=== PATIENT | female | born 1975 | race Caucasian/White ===

== ENCOUNTER 2020-11-16 15:15 | Emergency (ER) | payer OTHER, SELFPAY ==
--- NOTE | ~2020-11-16 | XR_ITS ---
EXAMINATION: XR CHEST CLINICAL INFORMATION: Chest symptoms. Assess for pneumonia. COMPARISON: None TECHNIQUE: Portable upright AP view of the chest was obtained. FINDINGS: The lungs are clear. There is no airspace consolidation or definite groundglass opacity. The heart is normal in size. The hilar and mediastinal contours are normal. Vascularity is normal. No visible effusion. No pneumothorax or pleural reaction. Bony structures are unremarkable. XR/XR chest 1V IMPRESSION: Unremarkable examination.
--- NOTE | 2020-11-16 15:19 | ED_ITS ---
HPI - General Adult General Chief complaint: Upper Respiratory Symptoms Stated complaint: COUGH,CONGESTION X'S 1 DAY Time Seen by Provider: 11/16/20 16:37 Source: patient Mode of arrival: ambulatory Limitations: no limitations History of Present Illness HPI narrative: Patient presents to ED for coughing, sore throat, body aches. Patient states having symptoms since yesterday. Patient states granddaughter having similar symptoms. Patient states no chest pain or shortness of breath. Related Data Previous Rx's Medication Instructions Recorded albuterol sulfate 90 mcg/actuation 2 puff INHALATION Q4-6H PRN #8.5 g 11/16/20 aerosol inhaler prednisone 20 mg tablet 40 mg PO DAILY 5 Days #10 tab 11/16/20 Allergies Allergy/AdvReac Type Severity Reaction Status Date / Time No Known Allergies Allergy Verified 11/16/20 15:33 Review of Systems Review of Systems: Yes all other systems are reviewed and are negative Constitutional: Constitutional: Reports as per HPI and Reports no additional constitutional complaints Eyes: Eyes: Reports as per HPI and Reports no additional eye complaints ENT: Reports system reviewed and no additional complaints, except as documented, Reports as per HPI and Reports sore throat Cardiovascular: Cardiovascular: Reports as per HPI and Reports no additional cardiovascular complaints Respiratory: Respiratory: Reports as per HPI, Reports no additional res piratory complaints and Reports cough Gastrointestinal: Gastrointestinal: Reports as per HPI and Reports no additional gastrointestinal complaints Musculoskeletal: Musculoskeletal: Reports no additional musculoskeletal complaints and Reports as per HPI Neurologic: Reports system reviewed and no additional complaints, except as documented and Reports as per HPI Psychiatric: Psychiatric: Reports no additional psychiatric complaints and Reports as per HPI [facility] Past Medical History Medical History (Updated 11/16/20 @ 17:57 by JAIME Lujan) Asthma Pre-diabetes Social History Social History Alcohol intake: never Patient Tobacco Use Status: Never used Tobacco Use of substances other than those prescribed or required for medical reasons: No Advance Directives: No Advance Directives Information Provided: Yes Patient : No Physical Exam Vital Signs: Vital Signs: Last Vital Signs Temp 97.7 F 11/16/20 16:00 Pulse 103 H 11/16/20 16:00 Resp 18 11/16/20 16:00 BP 143/69 H 11/16/20 16:00 Pulse Ox 98 11/16/20 16:00 Body Mass Index 26.3 Const: General: cooperative, healthy appearing, comfortable, no acute distress, well developed, alert, awake and Physically active Orientation/consciousness: patient oriented x3 HENMT: Head: Yes normal to inspection, Yes No palpable skull fracture present, Yes normocephalic and Yes atraumatic Eyes: General: appearance normal, both eyes and all related structures Neck: Neck: Yes normal visual inspection, Yes full ROM, Yes no lymphadenopathy, Yes no meningeal signs, Yes trachea midline, Yes supple and No tender Chest: Chest palpation & inspection: normal inspection of the chest and normal palpation of entire chest wall Resp: Effort & Inspection: normal respiratory effort and able to speak in complete sentences Auscultation: wheezes (Mild) expiratory wheezes Cardio: Jugular venous distension: no JVD Heart sounds: S1 normal heart sound present and S2 normal heart sound present GI: Inspection: Yes normal to inspection and No abdominal wall ecchymosis Palpation (GI): Soft to palpation, not firm, nontender, no guarding and not rigid : General: No CVA tenderness and Yes no CVA tenderness Back/Spine/Pelvis: Back: no CVA tenderness, No CVA tenderness and No back tenderness Skin: General skin exam: no rashes or lesions noted and elasticity normal Neuro: General: patient oriented x3, gait normal, no meningeal signs and CN's II-XI intact bilaterally Cranial nerves: Yes CN's II-XII intact bilaterally Extrem: General: Yes normal to inspection and Yes full ROM Psych: Appearance: grossly normal, well kempt and not disheveled Course Course Course Narrative: Patient will have chest x-ray and COVID swab per patient given albuterol pump and steroids. Reevaluation(s) Reevaluation #1: Patient COVID swab negative. RSV negative. Chest x-ray negative for pneumonia. Patient is safe for discharge Time: 17:51 Medical Decision Making [facility] Narrative Medical decision making narrative: Viral asthma exacerbation Lab Data Labs: Lab Results 11/16/20 11/16/20 Range/Units 15:43 15:43 Coronavirus (PCR) NEGATIVE (Negative) Influenza Type A (PCR) NEGATIVE (Negative) Influenza Type B (PCR) NEGATIVE (Negative) RSV RNA Qual (PCR) NEGATIVE (Negative) S. pyogenes GrpA KHALIF Negative (Negative) Discharge Plan Discharge Clinical Impression: Asthma Patient Disposition: Home, Self-Care Instructions: Asthma (ED), Upper Respiratory Infection (ED) Additional Instructions: Aguirre hisopo COVID, VSR y el hisopo de influenza dieron negativo. Radiograf?a de t?rax negativa para neumon?a. Se le anthony? de miley con esteroides y bomba de albuterol para la axacerbaci?n de ashtma. Regrese al servicio de urgencias si tiene dolor en el pecho, dificultad para respirar, hinchaz?n de las extremidades inferiores, dolor en la pantorrilla, tos con joy, debilidad, mareos, fiebre o cualquier otro s?ntoma que le preocupe. Jason un seguimiento con aguirre PCP. Prescriptions: New albuterol sulfate 90 mcg/actuation HFA aerosol inhaler 2 puff inhalation Q4-6H PRN (Reason: shortness of breath or wheezing) Qty: 8.5 RF: 0 prednisone 20 mg tablet 40 mg PO DAILY 5 Days Qty: 10 RF: 0 Stand Alone Forms: Work/School Release Print Language: Citizen Of [place]
[2020-11-16 15:25] VITALS: BP 139/62; BP 141/63; PULSE 101; PULSE 104; RESP 18; TEMP 36.6; O2SAT 97; BMI 26.3
[2020-11-16 15:29] VITALS: O2SAT 97
[2020-11-16] MEDS: predniSONE 20 MG TABLET 60 MG PO (15:41)
--- NOTE | 2020-11-16 15:42 | PC.NURSE ---
pt medicated per order
[2020-11-16 15:56] VITALS: BP 140/69; PULSE 100; RESP 16; TEMP 37.9; O2SAT 95
[2020-11-16 15:59] LABS: Strep A Nucleic Acid Negative (Negative)
[2020-11-16 16:00] VITALS: BP 143/69; PULSE 103; RESP 18; TEMP 36.5; O2SAT 98
[2020-11-16] MEDS: Albuterol Sulfate 90 MCG 8 GM INHALER 4 PUFF INHALE (16:04)
[2020-11-16 16:31] LABS: Influenza A PCR NEGATIVE (Negative); Influenza B PCR NEGATIVE (Negative); Resp Syncy Virus RNA Qual PCR NEGATIVE (Negative); SARS COV2 PCR INHOUSE NEGATIVE (Negative)
--- NOTE | 2020-11-16 16:38 | PC.NURSE ---
patient a&ox3, no c/o pain or discomfort, vss, pt awaiting testing results, will continue to monitor.
[2020-11-16 16:43] LABS: Adenovirus PCR Not Detected (Not Detect.); Bordetella parapertussis PCR Not Detected (Not Detect.); Bordetella pertussis PCR Not Detected (Not Detect.); Chlamydia pneumoniae PCR Not Detected (Not Detect.); Coronavirus 229E PCR Not Detected (Not Detect.); Coronavirus HKU1 PCR Not Detected (Not Detect.); Coronavirus NL63 PCR Not Detected (Not Detect.); Coronavirus OC43 PCR Not Detected (Not Detect.); Human metapneumovirus PCR Not Detected (Not Detect.); Influenza A PCR Not Detected (Not Detect.); Influenza B PCR Not Detected (Not Detect.); Mycoplasma pneumoniae PCR Not Detected (Not Detect.); Parainfluenza 1 PCR Not Detected (Not Detect.); Parainfluenza 2 PCR Not Detected (Not Detect.); Parainfluenza 3 PCR Not Detected (Not Detect.); Parainfluenza 4 PCR Not Detected (Not Detect.); RSV PCR Not Detected (Not Detect.); SARS-CoV-2 PCR Not Detected (Not Detect.)
[2020-11-16] MEDS: Acetaminophen 325 MG TABLET 650 MG PO (17:12)
[2020-11-16 18:54] VITALS: BP 133/66; PULSE 99; RESP 18; TEMP 36.4; O2SAT 97
[2020-11-17 09:24] LABS: Rhino/Enterovirus PCR Detected (Not Detect.)
== END 2020-11-16 18:56 | disposition home or self-care (01) ==
PROVIDERS: Physician Assistant; Emergency Provider Emergency Medicine
DX: J45.909 Unspecified asthma, uncomplicated (principal); R05 Cough; M79.10 Myalgia, unspecified site; Z20.822 Contact with and (suspected) exposure to COVID-19; Z79.899 Other long term (current) drug therapy
CPT/HCPCS: 0241U; 36415; 71045; 87633; 87651; 94640; 99284

== ENCOUNTER 2022-02-03 11:44 | Emergency (ER) | payer MEDICAID, SELFPAY ==
[2022-02-03 12:12] VITALS: BP 146/82; PULSE 86; RESP 18; TEMP 37.1; O2SAT 99; BMI 27.1
--- NOTE | 2022-02-03 12:14 | ED_ITS ---
HPI - Back Pain/Injury General Chief Complaint: Back Pain/Injury Stated Complaint: Lower back pain Time Seen by Provider: 02/03/22 12:17 Source: patient and translator/interpreter Mode of arrival: ambulatory Limitations: language barrier History of Present Illness HPI Narrative: This is a 47-year-old female with a history of asthma who presents with intermittent low back pain for the last few months. Patient reports she was seen by her primary care and diagnosed with musculoskeletal pain. Prescribed Flexeril and ibuprofen but taking with continued symptoms. Pain radiates from the low back into the right leg. Patient denies any numbness or tingling of the leg. No bowel or bladder incontinence. No fevers or chills. Pain is worsened with walking. No history of IV drug abuse, immunocompromised state Related Data Previous Rx's Medication Instructions Recorded albuterol sulfate 90 mcg/actuation 2 puff inhalation Q4-6H PRN 11/16/20 aerosol inhaler shortness of breath or wheezing #8.5 grams prednisone 20 mg tablet 40 mg PO DAILY 5 days #10 tabs 11/16/20 methocarbamol 750 mg tablet 750 mg PO Q6H PRN muscle pain #10 02/03/22 tabs naproxen 500 mg tablet 500 mg PO BID PRN pain #30 tabs 02/03/22 prednisone 20 mg tablet 40 mg PO DAILY #10 tabs 02/03/22 Allergies Allergy/AdvReac Type Severity Reaction Status Date / Time No Known Allergies Allergy Verified 11/16/20 15:33 Review of Systems Review of Systems: Yes all other systems are reviewed and are negative Constitutional: Constitutional: Reports no additional constitutional complaints, Denies body ache(s), Denies chills, Denies fever(s), Denies headache(s) and Denies weakness Eyes: Eyes: Reports no additional eye complaints and Denies change in vision ENT: Reports system reviewed and no additional complaints, except as documented, Denies dizziness, Denies headache(s), Denies nasal congestion, Denies nasal discharge and Denies neck pain Cardiovascular: Cardiovascular: Reports no additional cardiovascular complaints, Denies chest pain, Denies leg edema and Denies dyspnea Respiratory: Respiratory: Reports no additional respiratory complaints, Denies cough and Denies dyspnea Gastrointestinal: Gastrointestinal: Reports no additional gastrointestinal complaints, Denies abdominal pain, Denies diarrhea, Denies nausea and Denies vomiting Genitourinary: Genitourinary: Reports no additional female genitourinary complaints and Denies urinary incontinence Musculoskeletal: Musculoskeletal: Reports no additional musculoskeletal complaints, Reports back pain, Denies arthralgias, Denies joint swelling, Denies neck pain, Denies numbness and Denies tingling Integumentary/Breasts: Skin/Breast: Reports system reviewed and no additional complaints, except as docu and Denies rash Neurologic: Reports system reviewed and no additional complaints, except as documented, Denies Abnormal speech present, Denies dizziness, Denies headache(s), Denies numbness, Denies tingling and Denies weakness [facility] Past Medical History Attestation statement: The following information was validated with the patient. Source: old records reviewed and nursing notes reviewed Medical History Asthma Pre-diabetes Social History Social History Alcohol intake: never Patient Tobacco Use Status: Never used Tobacco Advance Directives: No Advance Directives Information Provided: No Physical Exam Vital Signs: Vital Signs: Last Vital Signs Temp 98.7 F 02/03/22 12:12 Pulse 86 02/03/22 12:12 Resp 18 02/03/22 12:12 BP 146/82 H 02/03/22 12:12 Pulse Ox 99 02/03/22 12:12 O2 Del Method 02/03/22 12:12 BMI result Body Mass Index 27.1 Const: General: cooperative, healthy appearing, comfortable and no acute distress Orientation/consciousness: patient oriented x3 Limitations: no limitations HEENT: Head: Yes normal to inspection Ears: hearing grossly normal bilatera lly General nose exam: Normal external nose present Face and sinus: Yes normal facial exam Mouth: Normal oral and palatal mucosa present Throat: Yes posterior oropharynx normal Eyes: General: appearance normal, both eyes and all related structures Pupils: Equal, round and reactive pupils present Neck: Neck: Yes normal visual inspection Chest: Chest palpation & inspection: normal inspection of the chest Resp: Effort & Inspection: normal respiratory effort Auscultation: clear to auscultation bilaterally Cardio: Rate: regular rate Rhythm: regular rhythm Peripheral pulses: Peripheral pulses 2+ throughout GI: Inspection: Yes normal to inspection Palpation (GI): Soft to palpation and nontender Auscultation: normal bowel sounds : General: Yes no CVA tenderness Back/Spine/Pelvis: Other: There is tenderness the lumbar soft tissue area over the right side with no midline tenderness, step-offs deformities. Pain is worsened with flexion and extension of the lumbar spine. Back: no CVA tenderness Thoracic/Lumbar Spine: thoracic and lumbar spine normal to inspection Skin: General skin exam: no rashes or lesions noted Neuro: General: patient oriented x3, no focal motor deficits and normal sensation to monofilament Cranial nerves: Yes Equal, round and reactive pupils present Cognition (Neuro): normal cognition Speech: No Abnormal speech present Gait exam (Neuro): Normal gait present Motor exam (neuro): 5/5 motor strength present throughout Sensory Exam: Normal double simultaneous stimulation for sensation Deep tendon reflexes (DTR's): Right patellar reflex intensity grade: 2+ and Left patellar reflex intensity grade: 2+ Extrem: General: Yes normal to inspection Course Course Course Narrative: This is a rapid medical exam. Deferred additional HPI, ROS, PE to primary provider. 47 yo female with here low back pain for months with no injury or trauma, VSS MDM - Back Pain/Injury MDM Narrative Medical decision making narrative: This is a 47-year-old female here with atraumatic lower back pain intermittently over the last few months unrelieved with ibuprofen, Flexeril at home. No injury or trauma No history of immunocompromise state, IV drug abuse or neurological deficits to suggest epidural abscess or cord compression or cauda equina. Likely musculoskeletal versus sciatic Patient will be discharged home with NSAID, muscle relaxant, prednisone course. Reviewed worrisome signs and symptoms of when to return to the emergency room. Comfortable plan for discharge home. Medical Records Attestation: I reviewed the patient's medical records. Lab Data Attestation: I reviewed the patient's lab results. Discharge Plan Discharge Clinical Impression: Sciatica Patient Disposition: Home, Self-Care Instructions: Sciatica (ED) Additional Instructions: Heat or ice to the area Gentle stretching No heavy lifting or bending Follow-up with primary care doctor comer o hielo en el ?reese Estiramiento suave Sin levantar objetos pesados ??ni agacharse Seguimiento con el m?dico de atenci?n primaria Prescriptions: New naproxen 500 mg tablet 500 mg PO BID PRN (Reason: pain) Qty: 30 0RF methocarbamol 750 mg tablet 750 mg PO Q6H PRN (Reason: muscle pain) Qty: 10 0RF prednisone 20 mg tablet 40 mg PO DAILY Qty: 10 0RF No Action albuterol sulfate 90 mcg/actuation HFA aerosol inhaler 2 puff inhalation Q4-6H PRN (Reason: shortness of breath or wheezing) Qty: 8.5 0RF prednisone 20 mg tablet 40 mg PO DAILY 5 Days Qty: 10 0RF Referrals: Julee Cloud MD [Primary Care Provider] - 1 week Print Language: [place]i
== END 2022-02-03 12:43 | disposition home or self-care (01) ==
LOC: HO.ED 12:32
PROVIDERS: Emergency Provider Emergency Medicine; PCP Internal Medicine
DX: M54.42 Lumbago with sciatica, left side (principal); M54.41 Lumbago with sciatica, right side; Z79.899 Other long term (current) drug therapy
CPT/HCPCS: 99282

== ENCOUNTER 2022-02-12 11:57 | Outpatient (REF) | payer MEDICAID, SELFPAY ==
[2022-02-13 09:24] LABS: CT PCR NOT DETECTED (Not Detect.); NG PCR NOT DETECTED (Not Detect.)
[2022-02-15 05:18] LABS: HPV mRNA E6/E7 rflx Not Detected (Not Detected)
== END 2022-02-12 11:58 | disposition home or self-care (01) ==
LOC: HO.LNP 11:57
PROVIDERS: PCP Internal Medicine; Visit Provider Obstetrics & Gynecology
DX: Z01.419 Encounter for gynecological examination (general) (routine) without abnormal findings (principal); Z11.51 Encounter for screening for human papillomavirus (HPV); N93.9 Abnormal uterine and vaginal bleeding, unspecified
CPT/HCPCS: 87491; 87591; 87624; 88142; 99202

== ENCOUNTER 2022-02-13 10:56 | Outpatient (REF) | payer MEDICAID, SELFPAY ==
--- NOTE | ~2022-02-13 | MM_ITS ---
EXAMINATION: MM SCREENING DIGITAL BREAST TOMOSYNTHESIS, BILATERAL CLINICAL INFORMATION: Screening. Asymptomatic. The lifetime risk of breast cancer based on the Tyrer-Cuzick Model is 6%. COMPARISON: Mammography: 12/08/2014 (baseline) TECHNIQUE: Digital breast tomosynthesis is performed in both the craniocaudal and mediolateral oblique views along with computer-aided detection (CAD). Synthesized 2D images are generated from the tomosynthesis. FINDINGS: The breasts are heterogeneously dense, which may obscure small masses (ACR BI-RADS breast composition Category c). Breast tissue composition borders on average fibroglandular. There are no significant masses, abnormal calcifications, or other abnormalities. The axilla and skin contours are unremarkable. No significant changes. MM/MM tomosynthesis screening BI IMPRESSION: No mammographic evidence of malignancy. ASSESSMENT: BI-RADS 1: Negative RECOMMENDATION: Routine annual mammography screening. This patient's information was entered into a reminder system with a target due date for their next mammogram.
== END 2022-02-13 10:57 | disposition home or self-care (01) ==
LOC: HO.MAMMO 10:56
PROVIDERS: PCP Internal Medicine; Visit Provider Obstetrics & Gynecology
DX: Z12.31 Encounter for screening mammogram for malignant neoplasm of breast (principal)
CPT/HCPCS: 77063; 77067

== ENCOUNTER 2022-04-03 13:17 | Outpatient (REF) | payer MEDICAID, SELFPAY | END 2022-04-03 13:18 | disposition home or self-care (01) | LOC: HO.LNP 13:17 | PROVIDERS: PCP Internal Medicine; Visit Provider Obstetrics & Gynecology | DX: N93.9 Abnormal uterine and vaginal bleeding, unspecified (principal) | CPT/HCPCS: 58100; 88305 ==

== ENCOUNTER 2022-04-11 09:45 | Outpatient (REF) | payer MEDICAID, SELFPAY ==
[2022-04-11 12:24] LABS: Hematocrit 37.5 % (37.0-47.0); Mean Corpuscular Hemoglobin 27.6 pg (27.0-33.0); Mean Corpuscular Volume 86.2 fL (80.0-98.0); Mean Platelet Volume 11.8 fL (9.4-12.3); Platelet Count 199 X10*3/uL (160-400); Red Blood Count 4.35 X10*6/uL (4.20-5.50); Red Cell Distribution Width 14.4 % (11.0-16.0); White Blood Count 4.8 X10*3/uL (4.8-10.8)
[2022-04-11 13:36] LABS: HCG Quantitative < 2 mIU/mL; TSH reflex Free T4 1.52 uIU/mL (0.32-4.0)
[2022-04-13 01:38] LABS: Follicle Stimulating Hormone 16.8 mIU/mL; Lutenizing Hormone 11.5 mIU/mL
== END 2022-04-11 09:46 | disposition home or self-care (01) ==
LOC: HO.LAB 09:45
PROVIDERS: PCP Internal Medicine; Visit Provider Obstetrics & Gynecology
DX: N93.9 Abnormal uterine and vaginal bleeding, unspecified (principal)
CPT/HCPCS: 36415; 83001; 83002; 84443; 84702; 85027; 99212

== ENCOUNTER 2022-05-13 10:53 | Outpatient (REF) | payer MEDICAID, SELFPAY ==
--- NOTE | ~2022-05-13 | US_ITS ---
EXAMINATION: US PELVIS CLINICAL INFORMATION: Abnormal vaginal bleeding. LMP 05/10/2022. COMPARISON: Pelvic ultrasound 04/18/2011. TECHNIQUE: Ultrasound of the pelvis is performed using both transabdominal and transvaginal transducers along with Doppler. Transvaginal imaging is performed due to inadequate visualization transabdominally. FINDINGS: The uterus is anteverted and enlarged measuring 11.9 x 4.3 x 7.5 cm. The myometrium/junctional zone is prominent and somewhat heterogeneous. No discrete focal liver lesion. The endometrium measures 0.6 cm in thickness. Nabothian cysts are noted in the cervix. The right ovary is slightly larger than the left ovary with some degree of nonspecific heterogeneity/bulkiness of the parenchyma. The right ovary measures 3.1 x 2.7 x 1.7 cm (7.5 mL) and the left ovary measures 2.4 x 2.6 x 1.5 cm (4.9 mL). No free fluid. US/US pelvic and transvaginal IMPRESSION: 1. The uterus is enlarged and heterogeneous in echotexture with prominence of the myometrium/junctional zone. These findings could be seen in the setting of adenomyosis in the appropriate clinical context. Recommend correlation with an MR of the pelvis with and without intravenous contrast for further evaluation. 2. Nonspecific mild asymmetric enlargement of the right ovary. Recommend clinical correlation for on and off torsion, however definite characterization with above recommended MRI pelvis is advised. 3. No free fluid.
== END 2022-05-13 10:54 | disposition home or self-care (01) ==
LOC: HO.US 10:53
PROVIDERS: PCP Internal Medicine; Visit Provider Obstetrics & Gynecology
DX: N93.9 Abnormal uterine and vaginal bleeding, unspecified (principal)
CPT/HCPCS: 76830; 76856

== ENCOUNTER → 2022-05-27 12:44 | Outpatient (BNVA) | payer MEDICAID, SELFPAY | PROVIDERS: PCP Internal Medicine; Visit Provider Obstetrics & Gynecology | DX: N93.9 Abnormal uterine and vaginal bleeding, unspecified (principal) | CPT/HCPCS: 99212 ==

== ENCOUNTER 2022-07-06 00:18 | Emergency (ER) | payer MEDICAID, SELFPAY ==
--- NOTE | ~2022-07-06 | CT_ITS ---
EXAMINATION: CT HEAD WITHOUT CONTRAST CLINICAL INFORMATION: Headache for 2 months, rule out mass effect, stroke COMPARISON: None TECHNIQUE: Contiguous axial imaging was performed from the skull base to vertex without intravenous administration of contrast. This CT examination was performed using dose optimization techniques as appropriate, variously including the following: *Automated exposure control *Adjustment of mA and/or kV according to patient size (this includes techniques or standardized protocols for targeted exams where dose is matched to indication/reason for exam; i.e. extremities or head) *Use of iterative reconstruction technique DLP: 615 mGy-cm FINDINGS: There is no evidence of acute intracranial hemorrhage or territorial infarction. No abnormal mass-effect or midline shift is seen. Hickman to white matter differentiation is well preserved. No extra-axial fluid collections are identified. The ventricles are normal in size. There is no abnormal attenuation within the brain parenchyma. The osseous structures and soft tissues are normal. The mastoid air cells and visualized portions of the paranasal sinuses are well-aerated. CT/CT head/brain wo IV con IMPRESSION: No acute intracranial pathology.
[2022-07-06 00:22] VITALS: BP 174/92; PULSE 80; RESP 18; TEMP 36.4; O2SAT 97; BMI 27.2
--- NOTE | 2022-07-06 02:55 | PC.NURSE ---
pt c/o of madrigal that began months ago but has been at its worst today, admits to occasional dizziness, denies n/v denies any injury, trauma, falls
[2022-07-06 03:01] VITALS: BP 159/90
--- NOTE | 2022-07-06 03:02 | PC.NURSE ---
pt denies hx of htn and admits to dx of pre-diabetes
--- NOTE | 2022-07-06 03:46 | ED.HA ---
HPI - Headache General Chief Complaint: Headache Stated Complaint: Months with headaches Time Seen by Provider: 07/06/22 01:31 Source: patient Mode of arrival: ambulatory Limitations: language barrier (Patient's 1st language is Swedish, speaks some Thai, iPad business intelligence developer used) History of Present Illness HPI Narrative: 47-year-old female who presents emergency department for evaluation of headaches x2 months. She states she gets the headaches daily and multiple times throughout the day. She points to her forehead, sides for head and back of her head when asked to localize the pain. She states that the pain is a pressure-like pain. At the time of my evaluation she states the headache resolved. She states that yesterday at around 14:00 hours for headache came on gradually and was persistent until it resolved in the emergency department she denies associated nausea, vomiting, vision change, flashing lights, photophobia, phonophobia, numbness or weakness. She does not think that the headache does not have a pattern such is worse in the morning, day or evening. Related Data Previous Rx's Medication Instructions Recorded albuterol sulfate 90 mcg/actuation 2 puff inhalation Q4-6H PRN 11/16/20 aerosol inhaler shortness of breath or wheezing #8.5 grams prednisone 20 mg tablet 40 mg PO DAILY 5 days #10 tabs 11/16/20 methocarbamol 750 mg tablet 750 mg PO Q6H PRN muscle pain #10 02/03/22 tabs naproxen 500 mg tablet 500 mg PO BID PRN pain #30 tabs 02/03/22 prednisone 20 mg tablet 40 mg PO DAILY #10 tabs 02/03/22 diphenhydramine HCl 25 mg capsule 50 mg PO Q6H PRN N/V, headache #30 07/06/22 (Benadryl) caps metoclopramide HCl 10 mg tablet 10 mg PO Q6H PRN nausea and 07/06/22 (Reglan) vomiting #14 tabs Allergies Allergy/AdvReac Type Severity Reaction Status Date / Time No Known Allergies Allergy Verified 05/27/22 13:02 Review of Systems Review of Systems: Yes all other systems are reviewed and are negative [facility] Past Medical History [facility] Narrative: Past medical history: Pre diabetes, asthma. Social history: She denies tobacco, alcohol and drug use. Medical History Asthma Pre-diabetes Social History Social History Alcohol intake: never Patient Tobacco Use Status: Never used Tobacco Smoked in Last 30 Days: No Use of substances other than those prescribed or required for medical reasons: No Advance Directives: No Advance Directives Information Provided: Yes Physical Exam Vital Signs: Vital Signs: Last Vital Signs Temp 97.4 F 07/06/22 05:50 Pulse 73 07/06/22 05:50 Resp 18 07/06/22 05:50 BP 138/84 07/06/22 05:50 Pulse Ox 98 07/06/22 05:50 O2 Del Method Room Air 07/06/22 05:50 BMI result Body Mass Index 27.2 Const: General: cooperative and no acute distress Orientation/consciousness: oriented to person and oriented to place Limitations: no limitations HEENT: Head: Yes normal to inspection, Yes normocephalic and Yes atraumatic Ears: external ears normal General nose exam: Normal external nose present Face and sinus: Yes normal facial exam Mouth: Normal oral and palatal mucosa present Throat: Yes posterior oropharynx normal Eyes: General: appearance normal, both eyes and all related structures Pupils: Equal, round and reactive pupils present Neck: Neck: Yes normal visual inspection, Yes no lymphadenopathy, Yes trachea midline and Yes supple Chest: Chest palpation & inspection: normal inspection of the chest and normal palpation of entire chest wall Resp: Effort & Inspection: normal respiratory effort and able to speak in complete sentences Auscultation: clear to auscultation bilaterally Cardio: Rate: regular rate Rhythm: regular rhythm Heart sounds: S1 normal heart sound present, S2 normal heart sound present and no murmurs GI: Inspection: Yes normal to inspection Palpation (GI): Soft to palpation, nontender and no guarding Auscultation: normal bowel sounds : General: Yes no CVA tenderness Back/Spine/Pelvis: Back: no CVA tenderness Skin: General skin exam: no rashes or lesions noted Neuro: General: oriented to person and oriented to place Cranial nerves: Yes CN's II-XII intact bilaterally and Yes Equal, round and reactive pupils present Cognition (Neuro): normal cognition Motor exam (neuro): 5/5 motor strength present throughout Extrem: General: Yes normal to inspection Psych: Appearance: grossly normal Speech and movement: Normal speech and movement present Affect: normal affect Attitude: cooperative Thought process: Normal thought process present Thought content: Normal thought content present Medical Decision Making Medical Decision Making MDM Narrative: 47-year-old female who presents emergency department for evaluation daily headaches times 3 months. Patient had a headache that started yesterday at 14:00 hours but resolved by the time I evaluated her in the emergency department. The headache is a pressure-like sensation in the front sides and back of her head with no significant associated symptoms except for dizziness. Patient's physical examination was unremarkable. I did order a CBC, CMP, ESR, CRP, CT scan of the brain. Patient had no pain at the time of my evaluation and did not require any medications. 0620: My interpretation of patient's workup data is as follows: Mild anemia with an H&H of 11.5 and 36.6. CMP was normal. ESR and CRP were normal. CT scan of the brain did not reveal a cause of the patient's headaches. Patient's headaches are nonspecific but she may benefit from treatment for migraine-like headaches. Patient was prescribed Reglan 10 mg, Benadryl 50 mg and Excedrin migraine 2 pills every 6 hours as needed for headache pain. She was given verbal and printed instructions and discharged home. Lab Data 07/06/22 04:18 07/06/22 04:18 Labs: Lab Results 07/06/22 07/06/22 07/06/22 Range/Units 04:18 04:18 04:18 WBC 7.3 (4.8-10.8) X10*3/uL RBC 4.40 (4.20-5.50) X10*6/uL Hgb 11.5 L (12.0-16.0) g/dl Hct 36.6 L (37.0-47.0) % MCV 83.2 (80.0-98.0) fL MCH 26.1 L (27.0-33.0) pg MCHC 31.4 (31.0-35.0) g/dl RDW 14.3 (11.0-16.0) % Plt Count 237 (160-400) X10*3/uL MPV 11.0 (9.4-12.3) fL Immature Gran % (Auto) 0.1 (0.0-0.4) % Neut % (Auto) 75.0 H (45-73) % Lymph % (Auto) 16.4 L (20-40) % [place] % (Auto) 7.2 (2-11) % Eos % (Auto) 0.7 (0-4) % Baso % (Auto) 0.6 (0-2) % Lymph # (Auto) 1.2 (1.2-4.9) X10*3/uL [place] # (Auto) 0.5 (0.1-1.2) X10*3/uL Eos # (Auto) 0.1 (0.0-0.4) X10*3/uL Baso # (Auto) 0.0 (0.0-0.2) X10*3/uL Abs Immat Gran (auto) 0.01 (0.00-0.03) X10*3/uL Absolute Neuts (auto) 5.5 (2.0-8.3) x10*3/uL Absolute Nucleated RBC 0.000 (0.0-0.012) X10*3/uL Nucleated RBC % (auto) 0.0 (0.0-0.2) /100WBC ESR 12 (0-20) MM/HR Sodium 142 (135-145) mmol/L Potassium 4.2 (3.3-5.1) mmol/L Chloride 108 (96-108) mmol/L Carbon Dioxide 25 (22-29) mmol/L Anion Gap 13 (12-20) BUN 11 (9-16) mg/dL Creatinine 0.69 (0.5-1.4) mg/dL Estim Creat Clear Calc 74.9 Estimated GFR > 60 Random Glucose 111 (60-115) mg/dL Calcium 9.5 (8.4-10.2) mg/dL Total Bilirubin 0.3 (0.0-1.0) mg/dL AST 14 (5-31) U/L ALT 19 (0-31) U/L Alkaline Phosphatase 76 (39-117) U/L C-Reactive Protein 0.33 (< or = 0.50) mg/dL Total Protein 7.3 (6.5-8.0) g/dL Albumin 4.2 (3.5-5.0) g/dL Discharge Plan Discharge Clinical Impression: Headache Qualifiers: Headache chronicity pattern: acute headache Intractability: not intractable Patient Disposition: Home, Self-Care Instructions: Acute Headache (ED) Additional Instructions: Your blood work included a CBC, CMP, ESR and CRP. All of these tests were normal which is reassuring. The CT scan of your head without IV contrast did not reveal any clear cause for your headache. There was no bleeding in the brain, stroke or large brain tumor seen by the radiologist Headaches are sometimes difficult to treat and we do not understand the cause for most headaches. I want you to try the following 3 medications together for your headaches to see if they improve them. I want you to take the following 3 medications together every 6 hours as needed for headache, nausea or vomiting. Reglan (metoclopramide) in 10 mg, 1 pill Benadryl 25 mg, 2 pills Excedrin migraine, 2 pills. After you take these medications, lie down in a dark quiet room and try to fall asleep. These medications will make you sleepy, do not drive or work after taking these medications. Follow-up with your doctor in 2 days. Please return to the emergency department if your symptoms get worse or if you develop any symptoms that are concerning to you. Prescriptions: New metoclopramide HCl [Reglan] 10 mg tablet 10 mg PO Q6H PRN (Reason: nausea and vomiting) Qty: 14 0RF diphenhydramine HCl [Benadryl] 25 mg capsule 50 mg PO Q6H PRN (Reason: N/V, headache) Qty: 30 0RF No Action albuterol sulfate 90 mcg/actuation HFA aerosol inhaler 2 puff inhalation Q4-6H PRN (Reason: shortness of breath or wheezing) Qty: 8.5 0RF prednisone 20 mg tablet 40 mg PO DAILY 5 Days Qty: 10 0RF naproxen 500 mg tablet 500 mg PO BID PRN (Reason: pain) Qty: 30 0RF methocarbamol 750 mg tablet 750 mg PO Q6H PRN (Reason: muscle pain) Qty: 10 0RF prednisone 20 mg tablet 40 mg PO DAILY Qty: 10 0RF
[2022-07-06 04:24] LABS: Basophils Percent Auto 0.6 % (0-2); Eosinophils Absolute Auto 0.1 X10*3/uL (0.0-0.4); Eosinophils Percent Auto 0.7 % (0-4); Hematocrit 36.6 % (37.0-47.0); Hemoglobin 11.5 g/dl (12.0-16.0); Imm Gran Abs Auto 0.01 X10*3/uL (0.00-0.03); Imm Gran Pct Auto 0.1 % (0.0-0.4); Lymphocytes Absolute Auto 1.2 X10*3/uL (1.2-4.9); Lymphocytes Percent Auto 16.4 % (20-40); MANUAL DIFF FLAG NO; Mean Corpuscular HGB Conc 31.4 g/dl (31.0-35.0); Mean Corpuscular Hemoglobin 26.1 pg (27.0-33.0); Mean Corpuscular Volume 83.2 fL (80.0-98.0); Monocytes Absolute Auto 0.5 X10*3/uL (0.1-1.2); Monocytes Percent Auto 7.2 % (2-11); Neutrophils Absolute Auto 5.5 x10*3/uL (2.0-8.3); Platelet Count 237 X10*3/uL (160-400); Red Cell Distribution Width 14.3 % (11.0-16.0); White Blood Count 7.3 X10*3/uL (4.8-10.8)
[2022-07-06 04:43] LABS: Alanine Aminotransferase 19 U/L (0-31); Albumin Level 4.2 g/dL (3.5-5.0); Alkaline Phosphatase 76 U/L (39-117); Anion Gap 13 (12-20); Aspartate Amino Transferase 14 U/L (5-31); Bilirubin Total 0.3 mg/dL (0.0-1.0); Blood Urea Nitrogen 11 mg/dL (9-16); C Reactive Protein 0.33 mg/dL (< or = 0.50); Calcium 9.5 mg/dL (8.4-10.2); Carbon Dioxide 25 mmol/L (22-29); Chloride 108 mmol/L (96-108); Creatinine Clr Calc Pharmacy 74.9; Estimated Glomerular Filt Rate > 60; Glucose Random 111 mg/dL (60-115); Potassium 4.2 mmol/L (3.3-5.1); Sodium 142 mmol/L (135-145); Total Protein 7.3 g/dL (6.5-8.0)
[2022-07-06 04:59] LABS: Erythrocyte Sedimentation Rate 12 MM/HR (0-20)
[2022-07-06 05:50] VITALS: BP 138/84; PULSE 73; RESP 18; TEMP 36.3; O2SAT 98
== END 2022-07-06 07:03 | disposition home or self-care (01) ==
PROVIDERS: Emergency Provider Emergency Medicine Emergency Medical Services; PCP Internal Medicine
DX: R51.9 Headache, unspecified (principal)
CPT/HCPCS: 36415; 70450; 80053; 85025; 85652; 86140; 99284

== ENCOUNTER 2023-03-24 14:15 | Outpatient (REF) | payer MEDICAID, SELFPAY ==
--- NOTE | ~2023-03-24 | MM_ITS ---
EXAMINATION: MM SCREENING DIGITAL BREAST TOMOSYNTHESIS, BILATERAL CLINICAL INFORMATION: Screening. Asymptomatic. COMPARISON: Mammography: This study is compared with prior exams dating back to 2014. There are no examinations between 2014 and 2021. TECHNIQUE: Digital breast tomosynthesis is performed in both the craniocaudal and mediolateral oblique views along with computer-aided detection (CAD). Synthesized 2D images are generated from the tomosynthesis. FINDINGS: The breasts are heterogeneously dense, which may obscure small masses (ACR BI-RADS breast composition Category c). There are no significant masses, abnormal calcifications, or other abnormalities. MM/MM tomosynthesis screening BI IMPRESSION: No mammographic evidence of malignancy. ASSESSMENT: BI-RADS BI-RADS 1 - Negative RECOMMENDATION: Routine annual mammography screening. 1 year F/U This examination should not preclude the clinical evaluation of a suspicious palpable abnormality. This patient's information was entered into a reminder system with a target due date for their next mammogram.
== END 2023-03-24 14:16 | disposition home or self-care (01) ==
LOC: HO.MAMMO 14:15
PROVIDERS: PCP Internal Medicine; Visit Provider Internal Medicine
DX: Z12.31 Encounter for screening mammogram for malignant neoplasm of breast (principal)
CPT/HCPCS: 77063; 77067

== ENCOUNTER → 2023-03-24 14:45 | Outpatient (BNV) | payer MEDICAID, SELFPAY | PROVIDERS: PCP Internal Medicine; Visit Provider Radiology Diagnostic Radiology | DX: Z12.31 Encounter for screening mammogram for malignant neoplasm of breast (principal) | CPT/HCPCS: 77063; 77067 ==

== ENCOUNTER 2024-04-02 14:20 | Outpatient (REF) | payer MEDICAID, SELFPAY ==
--- OUTSIDE RECORDS SUMMARY | 2024-04-02 14:22 | XMS_ITS | Encounter Summary ---
Author Organization [employer] Address [address] [place] [address] Care Team Providers Care Lowerator Operator Name Role Phone Julee Cloud MD Primary Care Provide r Encounter Details Date Type Department Care Team (Late st Contact Info) Description 10/11/2022 Orders Only [facility] MED & PEDS [address] [place] [address] Aislinn Contreras LPN Social History Tobacco Use Types Packs/Day Years Used Date Smoking Tobacco: Never Passive Smoke Exposure: Never Smokeless Tobacco: Never Alcohol Use Standard Drinks/Week Comments Never 0 (1 standard drink = 0.6 oz pur e alcohol) Comments Unknown Sex and Gender Information Value Date Recorded Sex Assigned at Female 12/31/2021 10:14 AM EDT Legal Sex Female 10:14 AM EDT Gender Identity Female 12/31/2021 10:14 AM EDT Sexual Orientation Straight 12/31/2021 10 :14 AM EDT documented as of this encounter Plan of Treatment Not on file documented as of this encounter Visit Diagnoses Not on filedocumented in this encounter Care Teams Lowerator Operator Relationship Specialty Start Date End Date Julee Cloud MD [address] [place] [address] PCP - General Family Medicine 11/12/17 documented as of this encounter
--- OUTSIDE RECORDS SUMMARY | 2024-04-02 14:22 | XMS_ITS | Encounter Summary ---
Author Organization [employer] Address [address] [place] [address] Care Team Providers Care Supervisor Poultry Processing Name Role Phone Julee Cloud MD Primary Care Provide r Encounter Details Date Type Department Care Team (Late st Contact Info) Description 12/11/2022 Orders Only [facility] CHC MED & PEDS [address] [place] [address] Yajaira Saavedra LPN Social History Tobacco Use Types Packs/Day [...] on filedocumented in this encounter Care Teams Supervisor Poultry Processing Relationship Specialty Start Date End Date Julee Cloud MD [address] [place] [address] PCP - General Family Medicine 11/12/17 documented as of this encounter
--- OUTSIDE RECORDS SUMMARY | 2024-04-02 14:22 | XMS_ITS | Encounter Summary ---
Author Organization [employer] Address [address] [facility] [address] [place] [address] Care Team Providers Care President And Cmo Name Role Phone Julee Cloud MD Primary Care Provide r Reason for Visit * Reason Comments Med Refill Encounter Details Date Type Department Care Team ([facility] st Contact Info) Description 04/30/2023 Refill [facility] MEDICINE [address] [place], [place] [phone] Julee Cloud MD [address] [place], [place] [phone] Social History Tobacco Use Types Packs/Day Years [...] on filedocumented in this encounter Care Teams President And Cmo Relationship Specialty Start Date End Date Julee Cloud MD [address] [place] [address] [phone] PCP - General Family Medicine 11/12/17 documented as of this encounter
--- OUTSIDE RECORDS SUMMARY | 2024-04-02 14:22 | XMS_ITS | Encounter Summary ---
Author Organization [employer] Address [address] [facility] [address] [place] [address] Care Team Providers Care Refinish Technician Name Role Phone Julee Cloud MD Primary Care Provide r Reason for Visit * Reason Comments Med Refill Encounter Details Date Type Department Care Team ([facility] st Contact Info) Description 04/07/2023 Refill [facility] MEDICINE [address] [place], [place] [phone] Julee Cloud MD [address] [place] [address] Social History Tobacco Use Types Packs/Day Years [...] on filedocumented in this encounter Care Teams Refinish Technician Relationship Specialty Start Date End Date Julee Cloud MD [address] [place] [address] [phone] PCP - General Family Medicine 11/12/17 documented as of this encounter
--- OUTSIDE RECORDS SUMMARY | 2024-04-02 14:22 | XMS_ITS | Clinical Summary ---
Author Organization [employer] Address [address] [place] [address] Care Team Providers Care [employer] Net Developer Name Role Phone Julee Cloud MD Primary Care Provide r Allergies No known active allergies Medications fluticasone (Flovent HFA) 110 MCG/ACT inhaler inhale 2 puff by inhalation route 2 times every day 36 g 3 Active FeroSul 325 (65 Fe) MG tablet TAKE 1 TABLET BY MOUTH TWICE DAILY 180 tablet 1 3 Active naproxen (Naprosyn) 500 MG tabletIndications: Acute nonintractable headache, unspecified headache type TAKE 1 TABLET BY MOUTH TWICE DAILY NEEDED FOR PAIN (LEVE OR MODERATE) 60 tablet 2 3 Active Mometasone Furoate (Asmanex HFA) 100 MCG/ACT aerosolIndications :Mild persistent asthma, unspecified whether complicated Inhale 2 puffs 2 times daily. 13 g 1 4 Active Ventolin HFA 108 (90 Base) MCG/ACT inhaler INHALE 2 PUFFS EVERY 6 HOURS NEEDED FOR WHEEZING 18 g 11 4 Active Active Problems Problem Noted Date Diagnosed Date Acute low back pain 03/10/2023 03/10/2023 Chronic low back pain 03/10/2023 03/10/2023 Excessive and frequent menstruation 03/14/2017 03/10/2023 Impacted cerumen 03/14/2017 03/10/2023 Mild persistent asthma 03/14/2017 4 Encounters Date Type Department Care Team Description 02/24/2024 Outside Procedure [facility] [address] [place] [address] Evelyn Domingo, OD Presbyopia of both eyes (Primary Dx) 02/20/2024 10:15 AM EST Office Visit [facility] [address] [place] [address] Evelyn Domingo, OD Myopia of both eyes (Primary Dx) 02/20/2024 Travel 01/16/2024 1:00 PM EST Office Visit [facility] [address] [place] [address] Evelyn Domingo, OD White without pressure of peripheral retina of right eye (Primary Dx); Chorioretinal scar, left eye; Presbyopia of both eyes 01/16/2024 Travel from Last 3 Months Social History Tobacco Use Types Packs/Day Years Used Date Smoking Tobacco: Never Passive Smoke Exposure: Never Smokeless Tobacco: Never Tobacco Cessation:Counseling Given: Not Answered Alcohol Use Standard Drinks/Week Comments Never 0 (1 standard drink = 0.6 oz pur e alcohol) Comments Unknown Sex and Gender Information Value Date Recorded Sex Assigned at Female 12/31/2021 10:14 AM EDT Legal Sex Female 10:14 AM EDT Gender Identity Female 12/31/2021 10:14 AM EDT Sexual Orientation Straight 12/31/2021 10 :14 AM EDT Last Filed Vital Signs Vital Sign Reading Time Taken Comments Blood Pressure 149/83 05/17/2022 10:36 AM EDT Pulse 71 05/17/2022 10:36 AM EDT Temperature 36.6 ??C (97.8 ??F) 05/17/2022 10:36 AM E DT Respiratory Rate 14 05/17/2022 10:36 AM EDT Oxygen Saturation 97% 05/17/2022 10:36 AM EDT Inhaled Oxygen Concentration - - Weight 59 kg (130 lb) 05/17/2022 10:36 AM EDT Height 147.3 cm (4' 10 ) 05/17/2022 10:36 AM EDT Body Mass Index 27.17 05/17/2022 10:36 AM EDT Plan of Treatment Health Maintenance Due Date Last Done Comments CT Colonography 1973 Colonoscopy 1973 Colorectal Cancer Screening 1973 Depression Screening 1973 FIT DNA/Cologuard 1973 FIT 1973 FOBT 1975 HIV Screening 1973 SDOH Screening 1973 Sigmoidoscopy 1973 Pneumococcal Vaccine: Pediatrics (0 to 5 Years) and At-Risk Patients (6 to 49) Years) (1 of 2 - PCV) 1979 Alcohol/Substance Use Screening 1985 Family Planning (PISQ) 01/03/1988 Hepatitis C Screening 1991 Hepatitis B Vaccines (1 of 3 - 19+ 3-dose series) 01/03/1992 Pneumococcal Vaccine: 50+ Years (1 of 2 - PCV) 01/03/1992 DTaP/Tdap/Td Vaccines (2 - Td or Tdap) 09/23/2022 09/23/2012, 01/24/2009, 09/28/1997 Zoster Vaccines (1 of 2) 2023 COVID-19 Vaccine ( - season) 2023 Influenza Vaccine (#1) 2023 8, 02/22/2014, 04/14/2012, Additional history exists Mammogram 03/24/2024 03/24/2023 Tobacco Screening 01/18/2025 01/19/2024 Pap Smear 02/12/2025 02/12/2022 Cervical Cancer Screening 02/12/2027 HPV/Cotest 02/12/2027 02/12/2022, 06/03/2017 RSV Patients and Patients Aged 60 years or older (1 - 1-dose 75+ series) 01/03/2048 HIB Vaccines Aged Out No longer eligi ble based on patient's age to complete this topic HPV Vaccines Aged Out No longer eligi ble based on patient's age to complete this topic Hepatitis A Vaccines Aged Out No long er eligible based on patient's age to complete this topic IPV Vaccines Aged Out No longer eligi ble based on patient's age to complete this topic Meningococcal Vaccine Aged Out No ruy buddy eligible based on patient's age to complete this topic RSV under 20 months Aged Out No longe r eligible based on patient's age to complete this topic Rotavirus Vaccines Aged Out No longer eligible based on patient's age to complete this topic Procedures Procedure Name Priority Date/Time Associated Diagnosis Comments BI MAMMOGRAM SCREENING TOMOSYNTHESIS BILATERAL Routine 03/24/2023 2:35 PM EST HPV MRNA E6/E7 REFLEX TO HPV 16, 18/45 Routine 02/12/2022 12:32 PM EST PAP SMEAR Routine 02/12/2022 12:32 PM EST from Last 3 Months or Most Recently Relevant to Health Maintenance Results * BI Mammogram Screening Tomosynthesis Bilateral (03/24/2023 2:35 PM EST) Anatomical Region Laterality Modality Breast Bilateral Mammography 03/24/2023 2:35 PM EST Narrative 04/08/2023 8:10 AM EST ? [facility] ? [address] ?[place] [address] ? Mammography Report ? Signed ? Patient: Ludmila Cooper ?MR#: [id number] ?? 6 ? : 1975 ?Acct:[id number] ? Age/Sex: 48 / F ?ADM Date: 03/24/23 ? Loc: HO.MAMMO ? Attending Dr: Julee Dale MD ? Ordering Physician: Julee Cloud MD ?Results: ?? 1Negative ? Date of Service: 03/24/23 ?Follow Up: 1 Year From Orig ?? inal Mammogram ? Procedure(s): MM tomosynthesis screening BI ?? Accession Number(s): [id number] ? cc: Julee Cloud MD ? EXAMINATION: ?? MM SCREENING DIGITAL BREAST TOMOSYNTHESIS, BILATERAL ? CLINICAL INFORMATION: ? Screening. Asymptomatic. ? COMPARISON: ?? Mammography: This study is compared with prior exams dating back to ?? 2014. There are no examinations between 2014 and 2021. ? TECHNIQUE: ?? Digital breast tomosynthesis is performed in both the craniocaudal and ?? mediolateral oblique views along with computer-aided detection (CAD). ?? Synthesized 2D images are generated from the tomosynthesis. ? FINDINGS: ?? The breasts are heterogeneously dense, which may obscure small masses ?? (ACR BI-RADS breast composition Category c). ? There are no significant masses, abnormal calcifications, or other ?? abnormalities. ? MM/MM tomosynthesis screening BI ?? IMPRESSION: ?? No mammographic evidence of malignancy. ? ASSESSMENT: ? BI-RADS BI-RADS 1 - Negative ? RECOMMENDATION: ?? Routine annual mammography screening. ? 1 year F/U ? This examination should not preclude the clinical evaluation of a ?? suspicious palpable abnormality. ? This patient's information was entered into a reminder system with a ?? target due date for their next mammogram. ? Dictated By: ?Priscilla Lindo MD ? Signed By: ?<Electronically signed by Priscilla Lindo MD in OV> ? 04/08/23 0806 ? DD/ 1435 ? TD/TT: ? Account Developer: ? Procedure Note Dominique, Image - 04/08/2023 [facility] [address] [place] [address] Dr. [place], [place] [address] Mammography Report Signed Patient: Ludmila Cooper R#: [id number] 6 : 1975Acct:[id number] Age/Sex: 48 / FADM Date: 03/24/23 Loc: HO.MAMMO Attending Dr: Julee Dale MD Ordering Physician: Barciona Dale,Julee MDResults: 1Negative Date of Service: 03/24/23Follow Up: 1 Year From Orig ina Mammogram Procedure(s): MM tomosynthesis screening BI Accession Number(s): [id number] cc: Julee Cloud MD EXAMINATION: MM SCREENING DIGITAL BREAST TOMOSYNTHESIS, BILATERAL CLINICAL INFORMATION: Screening. Asymptomatic. COMPARISON: Mammography: This study is compared with prior exams dating back to 2014. There are no examinations between 2014 and 2021. TECHNIQUE: Digital breast tomosynthesis is performed in both the craniocaudal and mediolateral oblique views along with computer-aided detection (CAD). Synthesized 2D images are generated from the tomosynthesis. FINDINGS: The breasts are heterogeneously dense, which may obscure small masses (ACR BI-RADS breast composition Category c). There are no significant masses, abnormal calcifications, or other abnormalities. MM/MM tomosynthesis screening BI IMPRESSION: No mammographic evidence of malignancy. ASSESSMENT: BI-RADS BI-RADS 1 - Negative RECOMMENDATION: Routine annual mammography screening. 1 year F/U This examination should not preclude the clinical evaluation of a suspicious palpable abnormality. This patient's information was entered into a reminder system with a target due date for their next mammogram. Dictated By: Priscilla Lindo MD Signed By: <Electronically signed by Priscilla Lindo MD in OV> 04/08/23 0806 DD/ 1435 TD/TT: Account Developer: Julee Dale MD IMG BI PROCEDURES Ankur kimberly Result - Final * HPV mRNA E6/E7 w/Reflex to HPV Genotypes 16, 18/45 (02/12/2022 12:32 PM EST) HPV nRNA E6/E7 Not Detected Not Detected [facility] Comment:Methodology: Transcr iption-Mediated AmplificationThis assay detects E6/E7 viral messenger RNA (mRNA) from 14high-risk HPV types (16,18,31,33,35,39,45,51,52,56,58,59,66,68).Cervical sources are required for HPV testing.If a vaginal source from a patient who has had atotal hysterectomy with removal of cervix wassubmitted, please contact the testing laboratoryfor alternative testing options.For additional information, please refer [email or web address]/faq/[email or web address](This link if provided for information/educational purposes only.)THIS TEST WAS PERFORMED AT:[facility] [place] [address],[place] [address]ROLLRGOOD BECKFORD MD HPV mRNA E6/E7 TNP [facility] HPV 16 RNA TNP [facility] HPV 18/45 RNA TNP [facility] 02/12/2022 12:3 2 PM EST 02/12/2022 5:30 PM EST [facility] External Provider LAB CYT OLOGY ORDERABLES Final Result Performing Organization Address City/State/[facility] Co de Phone Number [facility] [address] [place] [address] [phone] * Pap Smear (02/12/2022 12:32 PM EST) 02/12/2022 12:3 2 PM EST 02/12/2022 5:30 PM EST Narrative [facility] - 03/05/2022 1:04 PM EST ----- ------- Name: Ludmila Cooper ?Age/Sex: 47/F ? : 1975 Unit#: [id number] ?? Attend Dr: Nathan Aguilera MD ?Re02/12/22 ?Status: DEP REF ? Location: HO.LNP ?Disch: ? ----- ------- SPEC : [id number] ?RECD: 02/12/22 ? STATUS: ??SOUT ? REQ NUM: [id number] ? CHAPIN: 02/12/22-1232 ? SUBM DR: Nathan Aguilera MD ? ENTERED: ??02/12/22 ?SP TYPE: Pap Smr ?OTHR DR: Julee Cloud MD ? ORDERED: ??Pap Smear ? Interpretation ?? General Category: ? Negative for intraepithelial lesion/malignancy. ?? Adequacy: ? Endocervical component present. ?? Interpretation: ? Reactive cellular changes. ?Abundant, partially obscuring blood present. ?Endometrial cells present over age 45. ? HPV mRNA E6/E7: ?NOT DETECTED ? This assay detects E6/E7 viral messenger RNA (mRNA) from 14 high-risk HPV types (16, 18, ?? 31, 33, 35, 39, 45, 51, 52, 56, 58, 59, 66, 68) ? HPV testing performed by [employer], [place], [place]. ??See reference laboratory ?? portion of the EMR for entire report. ?Clinical Information LMP: 02/11/22 Previous PAP test: Unknown, WNL ? Material Received ?? ThinPrep-Cervical Copies To: ?? Julee Cloud MD ?? [address] ?? [place] [address] ?? [phone] ?? Nathan Aguilera MD ?? [address] [place] [facility] [place] ?? [place] [address] ?? [phone] ----- ------- Signed (signature on file) Le [place] 03/05/22 6614 ? ----- ------- ? END OF REPORT ? us [facility] External Provider LAB CYT OLOGY ORDERABLES Final Result [facility] [address] [place], [place] [phone] from Last 3 Months or Most Recently Relevant to Health Maintenance Insurance [employer] PARTIAL Care Teams [employer] Developer Relationship Specialty Start Date End Date Julee Cloud MD [address] [place] [address] PCP - General Family Medicine 11/12/17
== END 2024-04-02 14:21 | disposition home or self-care (01) ==
LOC: HO.MAMMO 14:20
PROVIDERS: PCP Internal Medicine; Visit Provider Internal Medicine
DX: Z12.31 Encounter for screening mammogram for malignant neoplasm of breast (principal)
CPT/HCPCS: 77063; 77067

== ENCOUNTER → 2024-04-02 14:30 | Outpatient (BNV) | payer MEDICAID, SELFPAY | PROVIDERS: PCP Internal Medicine; Visit Provider Internal Medicine | DX: Z12.31 Encounter for screening mammogram for malignant neoplasm of breast (principal) | CPT/HCPCS: 77063; 77067 ==

== ENCOUNTER 2024-07-09 10:59 | Outpatient (REF) | payer MEDICAID, SELFPAY ==
--- OUTSIDE RECORDS SUMMARY | 2024-07-09 11:30 | XMS_ITS | Clinical Summary ---
Author Organization [employer] Address [address] [facility] 7t [place] [address] Care Team Providers Care Pallet Stone Inserter Name Role Phone Julee Cloud MD Primary Care Provide r Allergies No known active allergies Medications FeroSul 325 (65 Fe) MG tablet TAKE 1 TABLET BY MOUTH TWICE DAILY 180 tablet 1 023 Active naproxen (Naprosyn) 500 MG tabletIndications :Acute nonintractable headache, unspecified headache type TAKE 1 TABLET BY MOUTH TWICE DAILY NEEDED FOR PAIN (LEVE OR MODERATE) 60 tablet 2 023 Active albuterol (Ventolin HFA) 108 (90 Base) MCG/ACT inhalerIndication s:Mild persistent asthma, unspecified whether complicated Inhale 2 puffs every 6 (six) hours if needed for wheezing. 18 g 11 025 Active fluticasone furoate (Arnuity Ellipta) 100 MCG/ACT inhalerIndication s:Mild persistent asthma, unspecified whether complicated Inhale 1 puff Once per day. Rinse mouth with water after use to reduce aftertaste and incidence of candidiasis. Do not swallow. 1 each 11 025 2025 Active fluticasone (Flovent HFA) 110 MCG/ACT inhaler inhale 2 puff by inhalation route 2 times every day 36 g 023 2024 Discontinued Mometasone Furoate (Asmanex HFA) 100 MCG/ACT aerosolIndication s:Mild persistent asthma, unspecified whether complicated Inhale 2 puffs 2 times daily. 13 g 1 024 2024 Discontinued Ventolin HFA 108 (90 Base) MCG/ACT inhaler INHALE 2 PUFFS EVERY 6 HOURS NEEDED FOR WHEEZING 18 g 11 024 2024 Discontinued(R eorder (will not trigger notification to Pharmacy)) Active Problems Problem Noted Date Diagnosed Date Iron deficiency anemia 07/08/2024 Assessment & Plan (07/08/2024 11:37 AM EDT): CBC and iron panel will be checked Health care maintenance 07/08/2024 Assessment & Plan (07/08/2024 11:37 AM EDT): I will follow-up with patient in about 2 weeks to review her labs with her Prediabetes 07/08/2024 Assessment & Plan (07/08/2024 11:36 AM EDT): Extensive counseling about healthy diet and exercise done today A1c will be checked with labs Acute low back pain 03/10/2023 03/10/2023 Chronic low back pain 03/10/2023 03/10/2023 Excessive and frequent menstruation 03/14/2017 03/10/2023 Impacted cerumen 03/14/2017 03/10/2023 Mild persistent asthma 03/14/2017 Encounters Date Type Department Care Team Description 07/08/2024 10:45 AM EDT Office Visit [facility] [address] [place] [address] Julee Cloud MD Screening for colon cancer (Primary Dx); Mild persistent asthma, unspecified whether complicated; Iron deficiency anemia, unspecified iron deficiency anemia type; Health care maintenance; Prediabetes 07/08/2024 Travel 07/07/2024 Telephone [facility] [address] [place] [address] Julee Cloud MD Chart Prep 05/14/2024 Population Health Risk Score Community Care [facility] ([facility]) Department [address] [place] [address] [phone] Provider, Population Health Generic from Last 3 Months Social History Tobacco Use Types Packs/Day Years Used Date Smoking Tobacco: Never Passive Smoke Exposure: Never Smokeless Tobacco: Never Tobacco Cessation:Counseling Given: Not Answered Alcohol Use Standard Drinks/Week Comments Never 0 (1 standard drink = 0.6 oz pur e alcohol) Depression Answer Date Recorded Patient Health Questionnaire-9 Score 6 07/08/2024 Patient Health Questionnaire-9 Score 6 07/08/2024 Last PHQ-9: Questionnaire Data Not on file 0 07/08/2024 Housing Stability Answer Date Recorded What is your housing situation today? I have yung lynne 07/08/[address] you li ve. Do you have problems with any of the following? None of the above 07/08/2024 Food Insecurity Answer Date Recorded Within the past 12 months, y ou worried that your food would run out before you got money to buy more: Never True 07/08/2024 Within the past 12 months,th e food you bought just didn't last and you didn't have enough money to get more: Never True 10/2024 Transportation Answer Date Recorded In the past 12 months, has l ack of transportation kept you from medical appts, meetings, work or from getting things needed for daily living? No 07/08/2024 Utilities Answer Date Recorded In the past 12 months, has t he electric, gas, oil or water company threatened to shut off services in your home? No 07/08/2024 Depression Answer Date Recorded Patient Health Questionnaire-2 Score 2 07/08/2024 Internet Access Answer Date Recorded Internet Access Q1 Yes 07/08/2024 Internet Access Q2 Not on file 07/08/2024 Comments No Sex and Gender Information Value Date Recorded Sex Assigned at Female 12/31/2021 10:14 AM EDT Legal Sex Female 10:14 AM EDT Gender Identity Female 12/31/2021 10:14 AM EDT Sexual Orientation Straight 12/31/2021 10 :14 AM EDT Last Filed Vital Signs Vital Sign Reading Time Taken Comments Blood Pressure 130/70 07/08/2024 10:49 AM EDT Pulse 91 07/08/2024 10:49 AM EDT Temperature 36.6 ??C (97.8 ??F) 07/08/2024 10:49 AM E DT Respiratory Rate 21 07/08/2024 10:49 AM EDT Oxygen Saturation 100% 07/08/2024 10:49 AM EDT Inhaled Oxygen Concentration - - Weight 55.3 kg (122 lb) 07/08/2024 10:49 AM EDT Height 147.3 cm (4' 10 ) 07/08/2024 10:49 AM EDT Body Mass Index 25.5 07/08/2024 10:49 AM EDT Plan of Treatment Upcoming Encounters Date Type Department Care Team (Late st Contact Info) Description 08/26/2024 11:30 AM EDT Telemedicine [facility] [address] [place] [address] Julee Cloud MD [address] [place] [address] Health Maintenance Due Date Last Done Comments CT Colonography 1975 Colonoscopy 1975 Colorectal Cancer Screening 1975 FIT DNA/Cologuard 1975 FIT 1975 FOBT 1975 HIV Screening 1975 Sigmoidoscopy 1975 Family Planning (PISQ) 01/03/1988 Hepatitis C Screening 1991 Hepatitis B Vaccines (1 of 3 - 19+ 3-dose series) 01/03/1992 Pneumococcal Vaccine: 50+ Years (1 of 2 - PCV) 01/03/1992 Diabetes: Hemoglobin A1C 05/22/2022 05/22/2021 DTaP/Tdap/Td Vaccines (2 - Td or Tdap) 09/23/2022 09/23/2012, 01/24/2009, 09/28/1997 Zoster Vaccines (1 of 2) 2023 COVID-19 Vaccine (1 - season) 2023 Influenza Vaccine (#1) 2023 8, 02/22/2014, 04/14/2012, Additional history exists Pap Smear 02/12/2025 02/12/2022 Mammogram 04/02/2025 04/02/2024, 03/24/2023 Alcohol/Substance Use Screening 07/08/2025 07/08/2024 Depression Screening 07/08/2025 07/08/2024, 07/09/19 25 SDOH Screening 07/08/2025 07/08/2024 Tobacco Screening 07/08/2025 07/08/2024 Cervical Cancer Screening 02/12/2027 HPV/Cotest 02/12/2027 02/12/2022, [...] Comments BI MAMMOGRAM SCREENING TOMOSYNTHESIS BILATERAL Routine 04/02/2024 2:30 PM EST HPV MRNA E6/E7 REFLEX TO HPV 16, 18/45 Routine 02/12/2022 12:32 PM EST PAP SMEAR Routine 02/12/2022 12:32 PM EST HEMOGLOBIN A1C Routine 05/22/2021 10:39 AM EDT from Last 3 Months or Most Recently Relevant to Health Maintenance Results * BI Mammogram Screening Tomosynthesis Bilateral (04/02/2024 2:30 PM EST) Anatomical Region Laterality Modality Breast Bilateral Mammography 04/02/2024 2:30 PM EST Narrative 04/11/2024 3:43 PM EST ? [facility] ? [address] ?[place] [address] ? Mammography Report ? Signed ? Patient: Kenneth,Ludmila H ?MR#: [id number] ?? 6 ? : 1975 ?Acct:[id number] ? Age/Sex: 49 / F ?ADM Date: 01/31/25 ? Loc: HO.MAMMO ? Attending Dr: Julee Dale MD ? Ordering Physician: Julee Cloud MD ?Results: ?? 1Negative ? Date of Service: 04/02/24 ?Follow Up: 1 Year From Orig ?? inal Mammogram ? Procedure(s): MM tomosynthesis screening BI ?? Accession Number(s): [id number] ? cc: Julee Cloud MD ? EXAMINATION: ?? MM SCREENING DIGITAL BREAST TOMOSYNTHESIS, BILATERAL ? CLINICAL INFORMATION: ? Screening. Asymptomatic. ? COMPARISON: ?? Mammography: Comparison is made with available priors ? TECHNIQUE: ?? Digital breast mammography with tomosynthesis is performed in both the ?? craniocaudal and mediolateral oblique views along with computer-aided ?? detection (CAD). ? FINDINGS: ?? The breasts are heterogeneously [...] due date for their next mammogram. ? Electronically signed by: ??Shannan Pelaez DO ??04/11/2024 03:40 PM EST ?? RP ? Dictated By: ?Shannan Pelaez DO ? Signed By: ?<Electronically signed by Shannan Pelaez, DO in OV> ? 04/11/24 1540 ? DD/ 1430 ? TD/TT: 04/02/24 1445 ? Travel Counselor: ? Procedure Note Donotanitainterpreter, Image - 04/11/2024 [place] [facility] [address] [place] [address] Mammography Report Signed Patient: Ludmila Cooper HMR#: [id number] 6 : 1975Acct:[id number] Age/Sex: 49 / FADM Date: 04/02/24 Loc: HO.MAMMO Attending Dr: Julee Dale MD Ordering Physician: Julee Cloud MDResults: 1Negative Date of Service: 04/02/24Follow Up: 1 Year From Orig inal Mammogram Procedure(s): MM tomosynthesis screening BI Accession Number(s): [id number] cc: Julee Cloud MD EXAMINATION: MM SCREENING DIGITAL BREAST TOMOSYNTHESIS, BILATERAL CLINICAL INFORMATION: Screening. Asymptomatic. COMPARISON: Mammography: Comparison is made with available priors TECHNIQUE: Digital breast mammography with tomosynthesis is performed in both the craniocaudal and mediolateral oblique views along with computer-aided detection (CAD). FINDINGS: The breasts are heterogeneously dense, which [...] target due date for their next mammogram. Electronically signed by: Shannan Pelaez DO 04/11/2024 03:40 PM EST Dictated By: Shannan Pelaez DO Signed By: <Electronically signed by Shannan Pelaez DO in OV> 04/11/24 1540 DD/ 1430 TD/TT: 04/02/24 1445 Travel Counselor: Julee Dale MD IMG BI PROCEDURES Ankur kimberly Result - Final * HPV mRNA E6/E7 w/Reflex to HPV Genotypes 16, 18/45 (02/12/2022 12:32 PM EST) HPV nRNA E6/E7 Not Detected Not Detected [facility] Comment:Methodology: Transcr iption-Mediated AmplificationThis assay detects E6/E7 viral messenger RNA (mRNA) from 14high-risk HPV types (16,18,31,33,35,39,45,51,52,56,58,59,66,68).Cervical sources are required for HPV testing.If a vaginal source from a patient who has had atotal hysterectomy with removal of cervix wassubmitted, please contact the testing laboratoryfor alternative testing options.For additional information, please refer tohttp://education.BitInstant/faq/JEZ083h0(This link if provided for information/educational purposes only.)THIS TEST WAS PERFORMED AT:[address] [place] [address],[place] [address]LFZVCGOOD BECKFORD MD HPV mRNA E6/E7 [facility] HPV 16 RNA [facility] HPV 18/45 RNA [facility] 02/12/2022 12:3 2 PM EST 02/12/2022 5:30 PM EST [facility] External Provider LAB CYT OLOGY ORDERABLES Final Result [facility] [address] [place] [address] [phone] * Pap Smear (02/12/2022 12:32 PM EST) 02/12/2022 12:3 2 PM EST 02/12/2022 5:30 PM EST Narrative [facility] - 03/05/2022 1:04 PM EST ----- ------- Name: Ludmila Cooper ?Age/Sex: 47/F ? : 1975 Unit#: [id number] ?? Attend Dr: Nathan Aguilera MD ?Re02/12/22 ?Status: DEP REF ? Location: HO.LNP ?Disch: ? ----- ------- SPEC : [id number] ?RECD: 02/12/22-1729 ? STATUS: ??SOUT ? REQ NUM: [id number] ? CHPAIN: 02/12/22-1232 ? SUBM DR: Nathan Aguilera MD ? ENTERED: ??02/12/22-1906 ?SP TYPE: Pap Smr ?OTHR DR: Julee [...] 66, 68) ? HPV testing performed by [facility], [place], [place]. ??See reference laboratory ?? portion of the EMR for entire report. ?Clinical Information LMP: 02/11/22 Previous PAP test: Unknown, WNL ? Material Received ?? ThinPrep-Cervical Copies To: ?? Julee Cloud MD ?? [address] ?? [place] [address] ?? [phone] ?? Nathan Aguilera MD ?? [address] [place] [address] [address] ?? [place] [address] ?? [phone] ----- ------- Signed (signature on file) Le Dasia 03/05/22 1304 ? ----- ------- ? END OF REPORT ? [facility] External Provider LAB CYT OLOGY ORDERABLES Final Result [facility] [address] [place] [phone] * (ABNORMAL) HEMOGLOBIN A1c (05/22/2021 10:39 AM EDT) [facility] Hemoglobin A1c 5.8(H) <5.7 % of total Hgb [facility] Comment: For someone without known diabetes, a hemoglobin ?? A1c value between 5.7% and 6.4% is consistent with prediabetes and should be confirmed with a ?? follow-up test. ?? For someone with known diabetes, a value <7% indicates that their diabetes is well controlled. A1c targets should be individualized based on duration of diabetes, age, comorbid conditions, and other considerations. ?? This assay result is consistent with an increased risk of diabetes. ?? Currently, no consensus exists regarding use of hemoglobin A1c for diagnosis of diabetes for children. ?? 05/22/2021 10:3 9 AM EDT Julee Dale MD LAB BLOOD ORDERABLES Final Result [facility] [address] from Last 3 Months or Most Recently Relevant to Health Maintenance Insurance [facility] C3 HSN PARTIAL Care Teams Pallet Stone Inserter Relationship Specialty Start Date End Date Julee Cloud MD [address] [place] [phone] PCP - General Family Medicine 11/12/17
--- OUTSIDE RECORDS SUMMARY | 2024-07-09 11:30 | XMS_ITS | Encounter Summary ---
Author Organization [employer] Address [address] [facility] 7t [place] [address] Care Team Providers Care Fuel Distribution System Operator Name Role Phone Julee Cloud MD Primary Care Provide r Encounter Details Date Type Department Care Team ([facility] Contact Info) Description 12/11/2022 Orders Only [facility] [address] [place], [place] [phone] Yajaira Saavedra LPN Social History Tobacco Use [...] as of this encounter Plan of Treatment Upcoming Encounters Date Type Department Care Team (Late Contact Info) Description 08/26/2024 11:30 AM EDT Telemedicine [facility] [address] [place] [address] Julee Cloud MD [address] [place], [place] [phone] documented as of this encounter Visit Diagnoses Not on filedocumented in this encounter Care Teams Fuel Distribution System Operator Relationship Specialty Start Date End Date Julee Cloud MD [address] [place], [place] [phone] PCP - General Family Medicine 11/12/17 documented as of this encounter
--- OUTSIDE RECORDS SUMMARY | 2024-07-09 11:31 | XMS_ITS | Encounter Summary ---
Author Organization [employer] Address [address] [facility] [address] [place] [address] Care Team Providers Care Hair Weaver Name Role Phone Julee lCoud MD Primary Care Provide r Encounter Details Date Type Department Care Team (Latest Contact Info) Description 07/08/2024 Travel Social History Tobacco Use Types Packs/Day Years [...] Info) Description 08/26/2024 11:30 AM EDT Telemedicine [facility] [address] [place] [address] Julee Cloud MD [address] [place] [address] documented as of this encounter Visit Diagnoses Not on filedocumented in this encounter Additional Health Concerns Assessment Noted Time PHQ-9 Depression Total Score: 6 07/09/19 25 11:06 AM EDT documented as of this encounter Care Teams Hair Weaver Relationship Specialty Start Date End Date Julee Cloud MD [address] [place] [phone] PCP - General Family Medicine 11/12/17 documented as of this encounter
--- OUTSIDE RECORDS SUMMARY | 2024-07-09 11:31 | XMS_ITS | Encounter Summary ---
Author Organization [employer] Address [address] [facility] 7t [place] [address] Care Team Providers Care Supply Chain Program Manager Name Role Phone Julee Cloud MD Primary Care Provide r Encounter Details Date Type Department Care Team ([facility] Contact Info) Description 10/11/2022 Orders Only [facility] [address] [place], [place] [phone] Aislinn Contreras LPN Social History Tobacco Use [...] Info) Description 08/26/2024 11:30 AM EDT Telemedicine [facility] [address] [place] [address] Julee Cloud MD [address] [place], [place] [phone] documented as of this encounter Visit Diagnoses Not on filedocumented in this encounter Care Teams Supply Chain Program Manager Relationship Specialty Start Date End Date Julee Cloud MD [address] [place], [place] [phone] PCP - General Family Medicine 11/12/17 documented as of this encounter
--- OUTSIDE RECORDS SUMMARY | 2024-07-09 11:31 | XMS_ITS | Encounter Summary ---
Author Organization [employer] Address [address] [facility] 7t [place] [address] Care Team Providers Care Zigzag Elastic Attacher Name Role Phone Julee Cloud MD Primary Care Provide r Reason for Visit * Reason Comments Med Refill Encounter Details Date Type Department Care Team (Late Contact Info) Description 04/07/2023 Refill [facility] [address] [place] [address] [phone] Julee Cloud MD [address] [place] [address] [phone] Social History Tobacco Use Types Packs/Day Years [...] Info) Description 08/26/2024 11:30 AM EDT Telemedicine [facility] [address] [place] [address] [phone] Julee Cloud MD [address] [place] [address] [phone] documented as of this encounter Visit Diagnoses Not on filedocumented in this encounter Care Teams Zigzag Elastic Attacher Relationship Specialty Start Date End Date Julee Cloud MD [address] [place] [address] PCP - General Family Medicine 11/12/17 documented as of this encounter
--- OUTSIDE RECORDS SUMMARY | 2024-07-09 11:31 | XMS_ITS | Encounter Summary ---
Author Organization [employer] Address [address] [facility] [address] 7[address] [place] [address] Care Team Providers Care Material Stress Tester Name Role Phone Julee Cloud MD Primary Care Provide r Reason for Visit * Reason Onset Date Comments Chart Prep 07/07/2024 Encounter Details Date Type Department Care Team ([facility] st Contact Info) Description 07/07/2024 Telephone [facility] [address] [place] [address] Julee Cloud MD [address] [place] [address] Chart Prep Social History Tobacco Use Types Packs/Day Years [...] Access Q2 Not on file 07/08/2024 Comments Unknown Sex and Gender Information Value Date Recorded Sex Assigned at Female 12/31/2021 10:14 AM EDT Legal Sex Female 10:14 AM EDT Gender Identity Female 12/31/2021 10:14 AM EDT Sexual Orientation Straight 12/31/2021 10 :14 AM EDT documented as of this encounter Miscellaneous Notes * Telephone Encounter - Nona Rodriguez [place] - 07/07/2024 8:40 AM EDT Chart Prep Labs: done Images: [place] Referrals: not applicable Vaccines due: Covid, Flu, PCV20, Tdap, Hep B, and Zoster Screenings: colonoscopy and HIV Screening, Hepatitis C Screening Overdue care gaps: SBIRT, SDOH, PHQ-9, GORGE-7, Oral health screening, Disability screen, and Tobacco documented in this encounter Plan of Treatment Upcoming Encounters Date Type Department Care Team (Late st Contact Info) Description 08/26/2024 11:30 AM EDT Telemedicine [facility] [address] [place] [address] Julee Cloud MD [address] [place] [address] documented as of this encounter Visit Diagnoses Not on filedocumented in this encounter Care Teams Material Stress Tester Relationship Specialty Start Date End Date Julee Cloud MD [address] [place] [address] PCP - General Family Medicine 11/12/17 documented as of this encounter
--- OUTSIDE RECORDS SUMMARY | 2024-07-09 11:31 | XMS_ITS | Encounter Summary ---
Author Organization [employer] Address [address] [place] [address] Care Team Providers Care Fur Finisher Tailor Name Role Phone Julee Cloud MD Primary Care Provide r Encounter Details Date Type Department Care Team ([facility] st Contact Info) Description 07/08/2024 10:45 AM EDT Office Visit [facility] [address] [place] [address] Julee Cloud MD [address] [place] [address] Screening for colon cancer (Primary Dx); Mild persistent asthma, unspecified whether complicated; Iron deficiency anemia, unspecified iron deficiency anemia type; Health care maintenance; Prediabetes Social History Tobacco Use Types Packs/Day Years [...] AM EDT documented as of this encounter Last Filed Vital Signs Vital Sign Reading [...] Mass Index 25.5 07/08/2024 10:49 AM EDT documented in this encounter Progress Notes * Julee Dale MD - 07/08/2024 10:45 AM EDT SUBJECTIVE: Ludmila Cooper is a 49 y.o. year old female who presents for Chronic Disease Management . Acute Concerns: Patient reports she has been doing well, she reports she uses her rescue inhaler about once a week and is using her her maintenance inhaler daily, reports her asthma is fairly controlled Patient reports she sometimes feels fatigued, she has a history of anemia and borderline high sugars and wanted to be checked for this Social History Social History Narrative Not on file Patient Active Problem List Diagnosis Acute low back pain Chronic low back pain Excessive and frequent menstruation Impacted cerumen Mild persistent asthma Iron deficiency anemia Health care maintenance Prediabetes No family history on file. Review of Systems Constitutional: Positive for fatigue. Negative for activity change, appetite change, chills, diaphoresis, fever and unexpected weight change. HENT: Negative. Respiratory: Negative. Cardiovascular: Negative. OBJECTIVE: Vitals: 07/08/24 1049 BP: 130/70 BP Location: Left arm Patient Position: Sitting BP Cuff Size: Adult Pulse: 91 Resp: 21 Temp: 97.8 ??F (36.6 ??C) TempSrc: Oral SpO2: 100% Weight: 122 lb (55.3 kg) Height: 4' 10 (1.473 m) Physical Exam Constitutional: Appearance: Normal appearance. Cardiovascular: Rate and Rhythm: Normal rate and regular rhythm. Pulmonary: Effort: Pulmonary effort is normal. Breath sounds: Normal breath sounds. Abdominal: General: Abdomen is flat. Palpations: Abdomen is soft. Musculoskeletal: Right lower leg: No edema. Left lower leg: No edema. Neurological: Mental Status: She is alert. Follow Up: Follow up for 2 weeks televisit review of labs . Current Outpatient Medications on File Prior to Visit Medication Sig Dispense Refill FeroSul 325 (65 Fe) MG tablet TAKE 1 TABLET BY MOUTH TWICE DAILY 180 tablet 1 naproxen (Naprosyn) 500 MG tablet TAKE 1 TABLET BY MOUTH TWICE DAILY NEEDED FOR PAIN (LEVE OR MODERATE) 60 tablet 2 [DISCONTINUED] fluticasone (Flovent HFA) 110 MCG/ACT inhaler inhale 2 puff by inhalation route 2 times every day 36 g 0 [DISCONTINUED] Mometasone Furoate (Asmanex HFA) 100 MCG/ACT aerosol Inhale 2 puffs 2 times daily. 13 g 1 [DISCONTINUED] Ventolin HFA 108 (90 Base) MCG/ACT inhaler INHALE 2 PUFFS EVERY 6 HOURS NEEDED FOR WHEEZING 18 g 11 No current facility-administered medications on file prior to visit. Problem List Items Addressed This Visit Mild persistent asthma Relevant Medications albuterol (Ventolin HFA) 108 (90 Base) MCG/ACT inhaler fluticasone furoate (Arnuity Ellipta) 100 MCG/ACT inhaler Iron deficiency anemia CBC and iron panel will be checked Relevant Orders CBC auto differential Iron And Total Iron Binding Capacity Health care maintenance I will follow-up with patient in about 2 weeks to review her labs with her Relevant Orders Comprehensive Metabolic Panel Hemoglobin A1c HIV-1/2 Antigen and Antibodies, Fourth Generation, with Reflexes Hepatitis C Antibody with Reflex to HCV, RNA, Quantitative, Real-Time PCR Lipid Panel, Standard Vitamin D, 25-Hydroxy, Total, Immunoassay TSH with Reflex to Free T4 Prediabetes Extensive counseling about healthy diet and exercise done today A1c will be checked with labs Other Visit Diagnoses Screening for colon cancer - Primary Relevant Orders Cologuard?? colon cancer screening documented in this encounter Miscellaneous Notes * Assessment & Plan Note - Julee Dale MD - 07/08/2024 11:37 AM EDT Associated Problem(s): Health care maintenance I will follow-up with patient in about 2 weeks to review her labs with her * Assessment & Plan Note - Julee Dale MD - 07/08/2024 11:37 AM EDT Associated Problem(s): Iron deficiency anemia CBC and iron panel will be checked * Assessment & Plan Note - Jluee Dale MD - 07/08/2024 11:36 AM EDT Associated Problem(s): Prediabetes Extensive counseling about healthy diet and exercise done today A1c will be checked with labs documented in this encounter Plan of Treatment Upcoming Encounters Date Type Department Care Team (Late st Contact Info) Description 08/26/2024 11:30 AM EDT Telemedicine [facility] [address] [place] [phone] Julee Cloud MD [address] [place] [address] Scheduled Orders Name Type Priority Associated Diagnoses Orde r Schedule Cologuard?? colon cancer screening Lab Routine Screening for colon cancer Ordered: 07/08/2024 CBC auto differential Lab Routine Iron deficiency anemia, unspecified iron deficiency anemia type Expected: 07/08/2024 (Approximate), Expires: 07/08/2025 Comprehensive Metabolic Panel Lab Routine Health care maintenance Expected: 07/08/2024 (Approximate), Expires: 07/08/2025 Hemoglobin A1c Lab Routine Health care maintenance Expected: 07/08/2024 (Approximate), Expires: 07/08/2025 HIV-1/2 Antigen and Antibodies, Fourth Generation, with Reflexes Lab Routine Health care maintenance Expected: 07/08/2024 (Approximate), Expires: 07/08/2025 Hepatitis C Antibody with Reflex to HCV, RNA, Quantitative, Real-Time PCR Lab Routine Health care maintenance Expected: 07/08/2024, Expires: 07/08/2025 Lipid Panel, Standard Lab Routine Health care maintenance Expected: 07/08/2024 (Approximate), Expires: 07/08/2025 Vitamin D, 25-Hydroxy, Total, Immunoassay Lab Routine Health care maintenance Expected: 07/08/2024 (Approximate), Expires: 07/08/2025 TSH with Reflex to Free T4 Lab Routine Health care maintenance Expected: 07/08/2024 (Approximate), Expires: 07/08/2025 Iron And Total Iron Binding Capacity Lab Routine Iron deficiency anemia, unspecified iron deficiency anemia type Expected: 07/08/2024, Expires: 07/08/2025 documented as of this encounter Visit Diagnoses Diagnosis Screening for colon cancer- Primary Special screening for malignant neoplasms, colon Mild persistent asthma, unspecified whether complicated Iron deficiency anemia, unspecified iron deficiency anemia type Health care maintenance Prediabetes Other abnormal glucose documented in this encounter Additional Health Concerns Assessment Noted Time PHQ-9 Depression Total Score: 6 07/09/19 25 11:06 AM EDT documented as of this encounter Care Teams Fur Finisher Tailor Relationship Specialty Start Date End Date Julee Cloud MD [address] [place] [address] PCP - General Family Medicine 11/12/17 documented as of this encounter
--- OUTSIDE RECORDS SUMMARY | 2024-07-09 11:31 | XMS_ITS | Encounter Summary ---
Author Organization [employer] Address [address] [facility] [address] [place] [address] Care Team Providers Care Sales Promotion Coordinator Name Role Phone Julee Cloud MD Primary Care Provide r Reason for Visit * Reason Comments Med Refill Encounter Details Date Type Department Care Team (Late Contact Info) Description 04/30/2023 Refill [facility] [address] [place] [address] [phone] Julee Cloud MD [address] [place] [address] [phone] Social History Tobacco Use Types Packs/Day Years [...] Info) Description 08/26/2024 11:30 AM EDT Telemedicine [facility] [address] [place] [address] [phone] Julee Cloud MD [address] [place] [address] [phone] documented as of this encounter Visit Diagnoses Not on filedocumented in this encounter Care Teams Sales Promotion Coordinator Relationship Specialty Start Date End Date Julee Cloud MD [address] [place] [address] PCP - General Family Medicine 11/12/17 documented as of this encounter
[2024-07-09 13:11] LABS: MANUAL DIFF FLAG NO
[2024-07-09 13:39] LABS: Basophils Absolute Auto 0.1 X10*3/uL (0.0-0.2); Basophils Percent Auto 1.1 % (0-2); Eosinophils Absolute Auto 0.1 X10*3/uL (0.0-0.4); Eosinophils Percent Auto 2.5 % (0-4); Imm Gran Abs Auto 0.01 X10*3/uL (0.00-0.03); Imm Gran Pct Auto 0.2 % (0.0-0.4); Lymphocytes Percent Auto 21.6 % (20-40); Mean Corpuscular HGB Conc 26.7 g/dl (31.0-35.0); Mean Corpuscular Hemoglobin 16.5 pg (27.0-33.0); Monocytes Absolute Auto 0.5 X10*3/uL (0.1-1.2); Monocytes Percent Auto 10.2 % (2-11); Neutrophils Percent Auto 64.4 % (45-73); Platelet Count 255 X10*3/uL (160-400); Red Blood Count 4.36 X10*6/uL (4.20-5.50); Red Cell Distribution Width 19.9 % (11.0-16.0); White Blood Count 4.7 X10*3/uL (4.8-10.8)
[2024-07-09 13:51] LABS: Alanine Aminotransferase 16 U/L (0-31); Albumin Level 4.1 g/dL (3.5-5.0); Alkaline Phosphatase 62 U/L (39-117); Anion Gap 9 (12-20); Aspartate Amino Transferase 17 U/L (5-31); Bilirubin Total 0.4 mg/dL (0.0-1.0); Blood Urea Nitrogen 10 mg/dL (9-16); Calcium 8.7 mg/dL (8.4-10.2); Carbon Dioxide 23 mmol/L (22-29); Chloride 108 mmol/L (96-108); Cholesterol 219 mg/dL (<200); Estimated Glomerular Filt Rate > 60; Glucose Random 98 mg/dL (60-115); HDL Cholesterol 64 mg/dL (>40); Iron 13 mcg/dL (30-160); LDL Cholesterol Calculated 141 mg/dL (<100); Percent Iron Saturation 4 % (15-50); Potassium 4.2 mmol/L (3.3-5.1); Sodium 136 mmol/L (135-145); Total Iron Binding Capacity 359 mcg/dL (228-428); Total Protein 7.3 g/dL (6.5-8.0); Triglycerides 72 mg/dL (<150); Unsaturated Iron Binding 346 ug/dL
[2024-07-09 14:16] LABS: TSH reflex Free T4 1.85 uIU/mL (0.32-4.0); Vitamin D 25-OH Total 17.2 ng/mL (>30)
[2024-07-09 14:20] LABS: Hemoglobin 7.2 g/dl (12.0-16.0); Mean Corpuscular Volume 61.9 fL (80.0-98.0)
[2024-07-09 14:36] LABS: Estimated Average Glucose 123 mg/dL; Hemoglobin A1C 76.7311 umol/L; Hemoglobin A1c % 5.9 % (<6.0); Total Hemoglobin (HGBA1C) 1867.8079 umol/L
[2024-07-10 03:59] LABS: HIV AB/AG Nonreactive (Nonreactive); HIV Num 1 0.05 S/CO (0.00-0.99); ~HepC Num1 0.12 S/CO (0.00-0.79); ~Hepatitis C Antibody Nonreactive (Nonreactive)
== END 2024-07-09 11:00 | disposition home or self-care (01) ==
LOC: HO.HHCL 10:59
PROVIDERS: Visit Provider Internal Medicine
DX: Z00.00 Encounter for general adult medical examination without abnormal findings (principal); D50.9 Iron deficiency anemia, unspecified
CPT/HCPCS: 36415; 80053; 80061; 82306; 83036; 83540; 84443; 85025; 86803; 87389

== ENCOUNTER 2024-09-02 10:34 | Outpatient (REF) | payer MEDICAID, SELFPAY ==
--- OUTSIDE RECORDS SUMMARY | 2024-09-02 11:18 | XMS_ITS | Encounter Summary ---
Author Organization [employer] Address [address] [place] [address] Care Team Providers Care Pickling Drum Operator Name Role Phone Julee Cloud MD Primary Care Provide r Encounter Details Date Type Department Care Team (Late st Contact Info) Description 12/11/2022 Orders Only [facility] [address] [place], [place] [phone] Yajaira Saavedra LPN Social History Tobacco Use [...] on filedocumented in this encounter Care Teams Pickling Drum Operator Relationship Specialty Start Date End Date Julee Cloud MD [address] [place] [address] PCP - General Family Medicine 11/12/17 documented as of this encounter
[2024-09-02 16:21] LABS: Imm Gran Abs Auto 0.01 X10*3/uL (0.00-0.03); NRBC Abs Auto 0.000 X10*3/uL (0.0-0.012); NRBC Pct Auto 0.0 /100WBC (0.0-0.2); SCAN SMEAR FLAG 1
[2024-09-02 16:23] LABS: Hematocrit 24.5 % (37.0-47.0); Imm Gran Pct Auto 0.3 % (0.0-0.4); Lymphocytes Absolute Auto 1.2 X10*3/uL (1.2-4.9); MANUAL DIFF FLAG SCAN; Mean Corpuscular HGB Conc 26.5 g/dl (31.0-35.0); Mean Corpuscular Hemoglobin 16.3 pg (27.0-33.0); Platelet Count 267 X10*3/uL (160-400); Red Blood Count 3.98 X10*6/uL (4.20-5.50); White Blood Count 4.0 X10*3/uL (4.8-10.8)
[2024-09-02 18:15] LABS: Hemoglobin 6.5 g/dl (12.0-16.0); Mean Corpuscular Volume 61.6 fL (80.0-98.0)
[2024-09-02 18:16] LABS: PLT ABN DIST 1
== END 2024-09-02 10:35 | disposition home or self-care (01) ==
LOC: HO.HHCL 10:34
PROVIDERS: PCP Internal Medicine; Visit Provider Internal Medicine
DX: N92.1 Excessive and frequent menstruation with irregular cycle (principal)
CPT/HCPCS: 36415; 85025

== ENCOUNTER 2024-09-06 20:11 | Emergency (ER) | payer MEDICAID, SELFPAY ==
[2024-09-06 20:18] VITALS: BP 156/67; PULSE 88; RESP 16; TEMP 36.3; O2SAT 99; BMI 22.3
--- NOTE | 2024-09-06 20:18 | ED_ITS ---
HPI - Recheck/Abnormal Lab/Rx General Chief Complaint: Recheck/Abnormal Lab/Rx Stated Complaint: Blood transfusion needed sent from PCP Time Seen by Provider: 09/06/24 22:42 Source: patient Mode of arrival: ambulatory Limitations: no limitations History of Present Illness ED Provider: Dr. Cheri Duran HPI narrative: Patient comes to the emergency room complaining of low hemoglobin. Patient states that she went to see her primary care physician for lab work and she was told that her hemoglobin is low, proximally 6.4 and she needed to come to emergency room for a blood transfusion. Patient states for the last few months she has been gradually feeling more weak and fatigue especially with going up the stairs. Denies any chest pain or syncopal episodes. Patient states that she is known to have anemia and takes oral iron. However, patient also states that she has history of heavy vaginal bleeding during her menstrual periods which occurred a few days ago. Patient denies being on blood thinners, denies any blood in the stool or black stool. Related Data Previous Rx's ?Medication ?Instructions ?Recorded albuterol sulfate 90 mcg/actuation 2 puff inhalation Q 4-6H PRN 11/16/20 aerosol inhaler shortness of breath or wheez ing #8.5 grams prednisone 20 mg tablet 40 mg (2 x 20 mg) PO DAILY 5 days 11/16/20 #10 tabs methocarbamol 750 mg tablet 750 mg PO Q6H PRN muscle p ain #10 02/03/22 tabs naproxen 500 mg tablet 500 mg PO BID PRN pain #30 t abs 02/03/22 prednisone 20 mg tablet 40 mg (2 x 20 mg) PO DAILY # 10 tabs 02/03/22 diphenhydramine HCl 25 mg capsule 50 mg (2 x 25 mg) PO Q6H PRN N/V, 07/06/22 (Benadryl) headache #30 caps metoclopramide HCl 10 mg tablet 10 mg PO Q6H PRN nause a and 07/06/22 (Reglan) vomiting #14 tabs Allergies Allergy/AdvReac Type Severity Reaction Status Date / Time No Known Allergies Allergy Verified 09/06/24 20:23 Review of Systems 2 Review of Systems: Constitutional : No Weight loss, No Fever, No Chills, No Night Sweats, Complaining of worsening fatigue for the last few months ENT/Mouth : No Hearing loss, No Ear Pain, No Nasal Congestion, No Sinus Pain, No Hoarseness, No sore throat, No Rhinorrhea, No Swallowing Difficulty Eyes: No Eye Pain, No Swelling, No Redness, No Foreign Body, No Discharge, No Vision Changes Cardiovascular : No Chest Pain, No SOB, No Dyspnea on Exertion, No Orthopnea, No Edema, No Palpitations Respiratory : No Cough, No Sputum, No Wheezing, No Smoke Exposure, No Dyspnea Gastrointestinal : No Nausea, No Vomiting, No Diarrhea, No Constipation, No abdominal Pain, No Hematochezia, No Melena Genitourinary : complaining of history of heavy irregular bleeding, No Dysuria, No Urinary Frequency, No Hematuria, No Urinary Incontinence, No Urgency, No Flank Pain, No Urinary Flow Changes, No Hesitancy Musculoskeletal : No joint pain, No Myalgias, No Joint Swelling Skin : No Skin Lesions, No rash Neuro : No Weakness, No Numbness, No Paresthesias, No Loss of Consciousness, No Dizziness, No Headache Psych : No Anxiety/Panic, No Depression, No SI/HI/AH/VH, No Social Issues, Heme/Lymph: No Bruising, No Bleeding,No Lymphadenopathy Endocrine : No Polyuria, No Polydipsia, No Temperature Intolerance PMFSH Past Medical History Medical History Asthma Pre-diabetes Social History Social History Alcohol intake: never Patient Tobacco Use Status: Never used Tobacco Smoked in Last 30 Days: No Use of substances other than those prescribed or required for medical reasons: No Advance Directives: No Advance Directives Information Provided: No Do you have a plan to hurt others: No Plan Physical Exam 2 Vital Signs: Vital Signs: Last Vital Signs Temp 98.1 F 09/07/24 05:23 Pulse 60 09/07/24 05:23 Resp 16 09/07/24 05:23 BP 148/82 H 09/07/24 05:23 Pulse Ox 100 09/07/24 02:53 O2 Del Method Room Air 09/07/24 02:53 BMI result Body Mass Index 22.3 Const: Other: Appearance: Alert. Oriented X3. No acute distress. Eyes: Pupils equal, round and reactive to light. ENT: Pharynx normal. Neck: Normal inspection. Neck supple. No lymph nodes noted. No crepitus CVS: Normal heart rate and rhythm. Pulses normal. Normal S1 and S2 Respiratory: No respiratory distress. Breath sounds normal. No Wheezing. No rales Abdomen: Soft and nontender. No rigidity. No distention. Skin: Skin warm and dry. slightly pale skin color. Normal skin turgor. Extremities: No lower extremity edema. No Lacerations. No Rash Neuro: Oriented X 3. No motor deficit. No sensory deficit. Moving all extremities. No slurred speech. CN 2 through 12 grossly intact Psych: calm, cooperative, normal affect Course Course Course Narrative: This is an RME performed by Bridget Doan CNP: Additional HPI, ROS, PE not included below will be deferred to primary provider. Patient is a 49-year-old female who presents emergency department for evaluation referred from PCP office for blood transfusion. Had routine outpatient labs on 09/02/2024, was advised that day to come to ED for with H&H 6.5/24.5, prior to that on 07/09/2024 7.2 and 27. She had elected not to come that day, was feeling anxious. PCP office called again today and advised her to come to the ED. she has been feeling tired, and fatigued. Has not previously required a blood transfusion. She has been taking iron supplementation. Denies current bleeding Plan: Serum labs including type and screen Reevaluation(s) Reevaluation #1: Patient feeling improved after her blood transfusions. She is ambulatory in the emergency department without assistance, normal vital signs and feeling improved. Using shared decision making, plan for discharge home to follow-up with primary care and/or specialist. Patient understands and agrees with plan for discharge. Discharged home in stable condition. Time: 05:28 Medical Decision Making Medical Decision Making MDM Narrative: we obtain labs, patient's hemoglobin is 6.8, hematocrit 24.8. I discussed with the patient the risks versus benefits of a blood transfusion, patient agreeable to proceed with a blood transfusion. Patient will follow-up with the PCP to discuss the chronic cyclic heavy vaginal bleeding Patient states that she is no longer menstruating and therefore no longer having any vaginal bleeding. Patient states that she has never been checked for blood in the stool. Patient agreeable to digital rectal exam Consent has been signed. We will transfuse the patient 2 units of blood. patient is guaiac test is heme negative Differential Diagnosis Differential Diagnoses: The differential diagnosis associated with the presentation includes ( iron deficiency anemia, vaginal bleeding causing blood loss anemia, occult GI bleed) Admission/Observation Consideration of admission/observation: Escalation of care including admission/observation considered ( given patient's labs, observation was considered) Lab Data MDM Lab Attestation statement: I reviewed the patient's lab results. 09/06/24 20:46 09/06/24 20:46 Labs: Lab Results 09/06/24 09/06/24 Range/Units 20:46 23:33 WBC 7.5 (4.8-10.8) X10*3/uL RBC 4.02 L (4.20-5.50) X10*6/uL Hgb 6.8 L* (12.0-16.0) g/dl Hct 24.8 L (37.0-47.0) % MCV 61.7 L (80.0-98.0) fL MCH 16.9 L (27.0-33.0) pg MCHC 27.4 L (31.0-35.0) g/dl RDW 21.8 H (11.0-16.0) % Plt Count 279 (160-400) X10*3/uL MPV Not Reportable Immature Gran % (Auto) 0.3 (0.0-0.4) % Neut % (Auto) 68.5 (45-73) % Lymph % (Auto) 21.4 (20-40) % [place] % (Auto) 8.2 (2-11) % Eos % (Auto) 1.1 (0-4) % Baso % (Auto) 0.5 (0-2) % Lymph # (Auto) 1.6 (1.2-4.9) X10*3/uL [place] # (Auto) 0.6 (0.1-1.2) X10*3/uL Eos # (Auto) 0.1 (0.0-0.4) X10*3/uL Baso # (Auto) 0.0 (0.0-0.2) X10*3/uL Abs Immat Gran (auto) 0.02 (0.00-0.03) X10*3/uL Absolute Neuts (auto) 5.2 (2.0-8.3) x10*3/uL Absolute Nucleated RBC 0.000 (0.0-0.012) X10*3/uL Nucleated RBC % (auto) 0.0 (0.0-0.2) /100WBC Smear Tech's Comments VERIFIED Sodium 140 (135-145) mmol/L Potassium 3.8 (3.3-5.1) mmol/L Chloride 110 H (96-108) mmol/L Carbon Dioxide 24 (22-29) mmol/L Anion Gap 10 L (12-20) BUN 11 (9-16) mg/dL Creatinine 0.63 (0.5-1.4) mg/dL Estim Creat Clear Calc 83.6 Estimated GFR > 60 Random Glucose 109 (60-115) mg/dL Calcium 8.5 (8.4-10.2) mg/dL Total Bilirubin 0.4 (0.0-1.0) mg/dL AST 17 (5-31) U/L ALT 15 (0-31) U/L Alkaline Phosphatase 56 (39-117) U/L Total Protein 7.1 (6.5-8.0) g/dL Albumin 4.3 (3.5-5.0) g/dL Stool Occult Blood NEGATIVE (NEGATIVE) Blood Type A Positive Antibody Screen NEGATIVE Crossmatch See Detail Critical Care Time Critical Care Time Critical Care Time: Yes Total Critical Care Time: 60 Attestation: I have personally provided critical care time. Time includes review of lab data, radiology results, discussion with consultants, and monitoring for potential decompensation. Intervention performed as documented. Discharge Plan Discharge Clinical Impression: Anemia, Abnormal uterine bleeding (AUB) Patient Disposition: Home, Self-Care Instructions: Anemia (ED) Additional Instructions: Your anemia is likely secondary to heavy vaginal bleeding. You need to follow- up with your cook frozen dessert as an outpatient within the next week. Call the office to make an appointment. Return to the emergency department with any new or worsening symptoms including: Worsening bleeding, passing out, shortness of breath or chest pain, fevers greater than 100?, any new symptom that concerns you. Call 911 with any medical emergency. Prescriptions: No Action albuterol sulfate 90 mcg/actuation HFA aerosol inhaler 2 puff inhalation Q4-6H PRN (Reason: shortness of breath or wheezing) Qty: 8.5 0RF prednisone 20 mg tablet 40 mg PO DAILY 5 Days Qty: 10 0RF naproxen 500 mg tablet 500 mg PO BID PRN (Reason: pain) Qty: 30 0RF methocarbamol 750 mg tablet 750 mg PO Q6H PRN (Reason: muscle pain) Qty: 10 0RF prednisone 20 mg tablet 40 mg PO DAILY Qty: 10 0RF metoclopramide HCl [Reglan] 10 mg tablet 10 mg PO Q6H PRN (Reason: nausea and vomiting) Qty: 14 0RF diphenhydramine HCl [Benadryl] 25 mg capsule 50 mg PO Q6H PRN (Reason: N/V, headache) Qty: 30 0RF Print Language: Salvadorean
[2024-09-06 20:59] LABS: Imm Gran Abs Auto 0.02 X10*3/uL (0.00-0.03); Imm Gran Pct Auto 0.3 % (0.0-0.4); MANUAL DIFF FLAG SCAN; NRBC Abs Auto 0.000 X10*3/uL (0.0-0.012); NRBC Pct Auto 0.0 /100WBC (0.0-0.2); SCAN SMEAR FLAG 1
[2024-09-06 21:00] LABS: Hematocrit 24.8 % (37.0-47.0); Lymphocytes Absolute Auto 1.6 X10*3/uL (1.2-4.9); Mean Corpuscular HGB Conc 27.4 g/dl (31.0-35.0); Mean Corpuscular Hemoglobin 16.9 pg (27.0-33.0); Platelet Count 279 X10*3/uL (160-400); Red Blood Count 4.02 X10*6/uL (4.20-5.50); White Blood Count 7.5 X10*3/uL (4.8-10.8)
[2024-09-06 21:14] LABS: Mean Corpuscular Volume 61.7 fL (80.0-98.0)
[2024-09-06 21:15] LABS: Hemoglobin 6.8 g/dl (12.0-16.0); PLT ABN DIST 1
[2024-09-06 21:17] LABS: Alanine Aminotransferase 15 U/L (0-31); Albumin Level 4.3 g/dL (3.5-5.0); Alkaline Phosphatase 56 U/L (39-117); Anion Gap 10 (12-20); Aspartate Amino Transferase 17 U/L (5-31); Blood Urea Nitrogen 11 mg/dL (9-16); Calcium 8.5 mg/dL (8.4-10.2); Carbon Dioxide 24 mmol/L (22-29); Chloride 110 mmol/L (96-108); Creatinine Clr Calc Pharmacy 83.6; Estimated Glomerular Filt Rate > 60; Potassium 3.8 mmol/L (3.3-5.1); Sodium 140 mmol/L (135-145); Total Protein 7.1 g/dL (6.5-8.0)
[2024-09-06 23:19] VITALS: BP 151/49; PULSE 75; RESP 16; TEMP 36.8; O2SAT 100
[2024-09-06 23:39] LABS: OBS Int Ctl Valid YES; OBS1 NEGATIVE (NEGATIVE)
[2024-09-06 23:58] VITALS: BP 151/49; PULSE 74; RESP 16; TEMP 36.8
[2024-09-07] VITALS (7 sets, daily range): BP systolic 128–148; BP diastolic 57–82; PULSE 60–70; RESP 11–16; TEMP 36.6–36.9; O2SAT 99–100
--- NOTE | 2024-09-07 00:07 | PC.NURSE ---
first unit of blood hung. RN took vitals before start time. RN currently at bedside for the first 15 min to monitor for any s/s of reactions.
== END 2024-09-07 05:36 | disposition home or self-care (01) ==
PROVIDERS: Emergency Medicine; Nurse Practitioner Family; Emergency Provider Emergency Medicine; PCP Internal Medicine
DX: N93.9 Abnormal uterine and vaginal bleeding, unspecified (principal); D64.9 Anemia, unspecified; R79.89 Other specified abnormal findings of blood chemistry; F41.9 Anxiety disorder, unspecified; Z79.899 Other long term (current) drug therapy
CPT/HCPCS: 36415; 36430; 80053; 82272; 85025; 86850; 86900; 86901; 86923; 99284; 99285; P9016

== ENCOUNTER 2024-09-15 11:50 | Outpatient (REF) | payer MEDICAID, SELFPAY ==
[2024-09-15 13:48] LABS: MANUAL DIFF FLAG NO
[2024-09-15 13:59] LABS: Hematocrit 38.3 % (37.0-47.0); Hemoglobin 11.2 g/dl (12.0-16.0); Imm Gran Abs Auto 0.01 X10*3/uL (0.00-0.03); Imm Gran Pct Auto 0.2 % (0.0-0.4); Lymphocytes Absolute Auto 0.9 X10*3/uL (1.2-4.9); Mean Corpuscular HGB Conc 29.2 g/dl (31.0-35.0); Mean Corpuscular Hemoglobin 21.1 pg (27.0-33.0); Mean Corpuscular Volume 72.0 fL (80.0-98.0); NRBC Abs Auto 0.000 X10*3/uL (0.0-0.012); NRBC Pct Auto 0.0 /100WBC (0.0-0.2); Platelet Count 175 X10*3/uL (160-400); Red Blood Count 5.32 X10*6/uL (4.20-5.50); White Blood Count 5.2 X10*3/uL (4.8-10.8)
== END 2024-09-15 11:51 | disposition home or self-care (01) ==
LOC: HO.HHCL 11:50
PROVIDERS: PCP Internal Medicine; Visit Provider Nurse Practitioner Family
DX: D64.9 Anemia, unspecified (principal)
CPT/HCPCS: 36415; 85025

== ENCOUNTER 2024-10-13 14:01 | Outpatient (REF) | payer MEDICAID, SELFPAY ==
--- NOTE | ~2024-10-13 | US_ITS ---
EXAMINATION: US PELVIS CLINICAL INFORMATION: Metrorrhagia . Anemia. COMPARISON: May 13, 2022 TECHNIQUE: Ultrasound of the pelvis is performed using both transabdominal and transvaginal transducers along with Doppler. Transvaginal imaging is performed due to inadequate visualization transabdominally. FINDINGS: Uterus: The uterus is in anteversion flexion and measures 12 x 7 x 8 cm. The double wall endometrial thickness is 14 mm. There is a 9 mm round isoechoic abnormality within the fundus of the uterine cavity without flow on color Doppler interrogation. Nabothian cysts in the cervix. Adnexa: The right ovary is not identified. The left ovary is identified with flow on color Doppler interrogation no free fluid in the cul-de-sac. Left ovary measures 3 x 2 x 2 cm. Volume: 8 cc . There is a 2 cm anechoic lesion without septations. US/US pelvic and transvaginal IMPRESSION: Questionable 9 mm submucosal polyp, fundus of the uterus. 2 cm cystic lesion, left ovary. 14 mm thickened endometrial stripe. Electronically signed by: Leland Crisostomo MD 10/13/2024 03:04 PM EDT
--- OUTSIDE RECORDS SUMMARY | 2024-10-13 14:23 | XMS_ITS | Encounter Summary ---
Author Organization [employer] Address [address] [place] [address] Care Team Providers Care Cold Roller Name Role Phone Julee Cloud MD Primary Care Provide r Encounter Details Date Type Department Care Team (Late st Contact Info) Description 12/11/[address] [facility] [address] [place], [place] [phone] Yajaira Saavedra LPN Social History Tobacco Use [...] on filedocumented in this encounter Care Teams Cold Roller Relationship Specialty Start Date End Date Julee Cloud MD [address] [place] [phone] PCP - General Family Medicine 11/12/17 documented as of this encounter
== END 2024-10-13 14:02 | disposition home or self-care (01) ==
LOC: HO.US 14:01
PROVIDERS: PCP Internal Medicine; Visit Provider Internal Medicine
DX: N92.1 Excessive and frequent menstruation with irregular cycle (principal)
CPT/HCPCS: 76830; 76856

== ENCOUNTER → 2024-10-13 14:02 | Outpatient (BNV) | payer MEDICAID, SELFPAY | PROVIDERS: PCP Internal Medicine; Visit Provider Radiology Diagnostic Radiology | DX: N93.9 Abnormal uterine and vaginal bleeding, unspecified (principal) | CPT/HCPCS: 76830; 76856 ==

== ENCOUNTER 2024-12-29 15:19 | Outpatient (REF) | payer MEDICAID, SELFPAY ==
[2024-12-31 01:27] LABS: CT PCR NOT DETECTED (Not Detect.); NG PCR NOT DETECTED (Not Detect.)
== END 2024-12-29 15:20 | disposition home or self-care (01) ==
LOC: HO.LNP 15:19
PROVIDERS: PCP Internal Medicine; Visit Provider Obstetrics & Gynecology
DX: N93.9 Abnormal uterine and vaginal bleeding, unspecified (principal); Z11.51 Encounter for screening for human papillomavirus (HPV); Z20.2 Contact with and (suspected) exposure to infections with a predominantly sexual mode of transmission
CPT/HCPCS: 87491; 87591; 87626; 88175; 99212

== ENCOUNTER 2024-12-29 15:19 | Outpatient (AMB) | payer MEDICAID, SELFPAY ==
--- NOTE | 2024-12-29 15:20 | A.OFFVIS_ITS ---
Intake Visit Reasons: Metrorrhagia Follow up Liquor Rectifier: Liquor Rectifier Present (Danyell) Accompanied by: Self / Same As Patient Allergies No Known Allergies Allergy (Verified 12/29/24 15:23) Is last menstrual period known: Yes Last menstrual period: 12/25/24 Post menopausal: No Patient : No Do you need a note to return to daycare/school/sports/work: Yes (for surgery on friday) HPI Comments Details: Presenting for follow-up after emergency room visit. The patient has been having regular menstrual cycles associated passage of blood clots and pelvic cramping. The following workup was done : 09/24 H&H 11.2/38.3 09/24 TSH within normal Last Co testing 02/21 was negative with endometrial cells, followed by EMB pathology was negative endometrial hyperplasia and/or malignancy Last mammogram in 03/27 was BI-RADS 1 10/25 pelvic ultrasound showed the following: Uterus: The uterus is in anteversion flexion and measures 12 x 7 x 8 cm. The double wall endometrial thickness is 14 mm. There is a 9 mm round isoechoic abnormality within the fundus of the uterine cavity without flow on color Doppler interrogation. Nabothian cysts in the cervix. Adnexa: The right ovary is not identified. The left ovary is identified with flow on color Doppler interrogation no free fluid in the cul-de-sac. Left ovary measures 3 x 2 x 2 cm. Volume: 8 cc . There is a 2 cm anechoic lesion without septations. [facility] Medical History Asthma Pre-diabetes Social History Alcohol intake: never Patient Tobacco Use Status: Never used Tobacco Patient : No Female Reproductive History Menstrual Age of Menarche: 9 Date of last menstrual period: 12/25/24 control method: none Total pregnancies: 2 Full term: 2 Date of last pap smear: 02/12/22 Review of Systems Card Reports as per HPI and Reports no additional complaints Resp Reports as per HPI and Reports no additional complaints GI Reports as per HPI and Reports no additional complaints Reports as per HPI Physical Exam Const General: cooperative, healthy appearing and comfortable Resp Effort & Inspection: normal respiratory effort Auscultation: clear to auscultation bilaterally Percussion: percussion normal Cardio Palpation: normal PMI Rate: regular rate Rhythm: regular rhythm Heart sounds: no murmurs and no rubs Peripheral pulses: Peripheral pulses 2+ throughout GI Inspection: Yes normal to inspection Palpation (GI): Soft to palpation, nontender, no guarding, not rigid and No hepatosplenomegaly present Percussion: Yes normal to percussion Auscultation: normal bowel sounds Rectal Exam - Female: deferred Assessment & Plan Assessment & Plan (1) Abnormal uterine bleeding (AUB): Comment: Endometrial polyp on ultrasound Code(s): N93.9 - Abnormal uterine and vaginal bleeding, unspecified Category: Medical Plan: Co testing done, GC/CT collected. Discussed with the patient the finding on ultrasound showing possible endometrial polyp, recommended hysteroscopy D&C possible polypectomy/myomectomy to rule out endometrial pathology including endometrial hyperplasia and/or malignancy or polyp. Discussed with the patient the procedure , all benefits and risks including but not limited to inability to complete the procedure , insufficient endometrial tissue for a complete evaluation of the endometrial cavity , bleeding, infection, possible need for blood transfusion with all its risk ( HIV,syphilis, Hepatitis, anaphylaxis shock, others..), injury to bladder, rectum, possible need for laparoscopy/laparotomy or hysterectomy. The patient verbalized understanding and signed the consent. Instructions given the patient to stay NPO after midnight the day prior to the procedure and to schedule a 2 week postoperative appointment Coding Level of Care Code Est Pt Level 3 (02077) Diagnoses Abnormal uterine bleeding (AUB) N93.9
--- OUTSIDE RECORDS SUMMARY | 2024-12-29 19:43 | XMS_ITS | Encounter Summary ---
Author Organization [employer] Address [address] [facility] 7t h Floor [place] [phone] Care Team Providers Care Tree Girdler Name Role Phone Julee Cloud MD Primary Care Provide r Reason for Visit * Reason Comments Med Refill Encounter Details Date Type Department Care Team ([facility] st Contact Info) Description 04/30/2023 Refill [facility] [address] [place] [address] Julee Cloud MD [address] [place] [phone] Social History Tobacco Use Types Packs/Day Years [...] on filedocumented in this encounter Care Teams Tree Girdler Relationship Specialty Start Date End Date Julee Cloud MD [address] [place] [address] [phone] PCP - General Family Medicine 11/12/17 documented as of this encounter
--- OUTSIDE RECORDS SUMMARY | 2024-12-29 19:43 | XMS_ITS | Clinical Summary ---
Author Organization [employer] Address 75 [facility] 7t [place] [address] Care Team Providers Care Senior Abap Developer Name Role Phone Julee Cloud MD Primary Care Provide r Allergies No known active allergies Medications naproxen (Naprosyn) 500 MG tabletIndications: Acute nonintractable headache, unspecified headache type TAKE 1 TABLET BY MOUTH TWICE DAILY NEEDED FOR PAIN (LEVE OR MODERATE) 60 tablet 2 3 Active albuterol (Ventolin HFA) 108 (90 Base) MCG/ACT inhalerIndications :Mild persistent asthma, unspecified whether complicated Inhale 2 puffs every 6 (six) hours if needed for wheezing. 18 g 11 5 Active fluticasone furoate (Arnuity Ellipta) 100 MCG/ACT inhalerIndications :Mild persistent asthma, unspecified whether complicated Inhale 1 puff Once per day. Rinse mouth with water after use to reduce aftertaste and incidence of candidiasis. Do not swallow. 1 each 11 5 026 Active ferrous sulfate (FeroSul) 325 (65 Fe) MG tabletIndications: Metrorrhagia Take 1 tablet (325 mg) by mouth Once per day. 90 tablet 1 5 Active ascorbic acid (Vitamin C) 500 MG tabletIndications: Metrorrhagia One tablet daily take it together with iron supplement 90 tablet 1 5 Active Blood Pressure kitIndications:Mara vated blood pressure reading 1 Units 2 times daily. 1 kit 5 Active Active Problems Problem Noted Date Diagnosed Date Endometrial thickening on ultrasound 10/13/2024 Uterine polyp 10/13/2024 Elevated blood pressure reading 09/15/2024 Abnormal uterine and vaginal bleeding, unspecifi ed 09/15/2024 Iron deficiency anemia 07/08/2024 Assessment & Plan [...] Encounters Date Type Department Care Team Description 10/13/2024 Orders Only [facility] & PEDS [address] [place] [address] Julee Cloud MD Endometrial thickening on ultrasound; Uterine polyp from Last 3 Months Social History Tobacco [...] Sign Reading Time Taken Comments Blood Pressure 146/90 09/27/2024 11:56 AM EDT Pulse 67 09/27/2024 11:55 AM EDT Temperature 36.9 C (98.5 F) 09/15/2024 10:56 AM EDT Respiratory Rate 18 09/27/2024 11:55 AM EDT Oxygen Saturation 98% 09/27/2024 11:55 AM EDT Inhaled Oxygen Concentration - - Weight 55.5 kg (122 lb 4 oz) 09/15/2024 10:56 AM EDT Height 147.3 cm (4' 10 ) 09/15/2024 10:56 AM EDT Body Mass Index 25.55 09/15/2024 10:56 AM EDT Plan of Treatment Health Maintenance Due Date Last Done Comments CT Colonography 1975 Colonoscopy 1975 Colorectal Cancer Screening 1975 FIT DNA/Cologuard 1975 FIT 1975 FOBT 1975 Sigmoidoscopy 1975 Family Planning (PISQ) 01/03/1988 Hepatitis B Vaccines (1 of 3 - 19+ 3-dose series) 01/03/1992 Pneumococcal Vaccine: 50+ Years (1 of 2 - PCV) 01/03/1992 DTaP/Tdap/Td Vaccines (2 - Td or Tdap) 09/23/2022 09/23/2012, 01/24/2009, 09/28/1997 Zoster Vaccines (1 of 2) 2023 COVID-19 Vaccine (1 - season) 2024 Influenza Vaccine (#1) 2024 8, 02/22/2014, 04/14/2012, Additional history exists Pap Smear 02/12/2025 02/12/2022 Mammogram 04/02/2025 04/02/2024, 03/24/2023 Alcohol/Substance Use Screening 07/08/2025 07/08/2024 Depression Screening 07/08/2025 07/08/2024, 07/09/19 Disability Screening 07/08/2025 07/08/2024 SDOH Screening 07/08/2025 07/08/2024 Diabetes: Hemoglobin A1C 07/09/2025 07/09/2024, 0304/2021 Tobacco Screening 09/15/2025 09/15/2024 Cervical Cancer Screening 02/12/2027 HPV/Cotest 02/12/2027 02/12/2022, 06/03/2017 RSV Patients and Patients Aged 60 years or older (1 - 1-dose 75+ series) 01/03/2048 HIV Screening Completed 07/09/2024 Hepatitis C Screening Completed 07/09/2024 HIB Vaccines Aged Out No longer eligi [...] patient's age to complete this topic Meningococcal B Vaccine Aged Out No l onger eligible based on patient's age to complete [...] Procedure Name Priority Date/Time Associated Diagnosis Comments US PELVIS TRANSVAGINAL Routine 2:33 PM EDT Metrorrhagia HEPATITIS C AB W/REFL TO HCV RNA, QN, PCR Routine 07/09/2024 11:01 AM EDT Health care maintenance HIV 1/2 ANTIGEN/ANTIBODY, FOURTH GENERATION W/RFL Routine 07/09/2024 11:01 AM EDT Health care maintenance HEMOGLOBIN A1C Routine 07/09/2024 11:01 AM EDT Health care maintenance BI MAMMOGRAM SCREENING TOMOSYNTHESIS BILATERAL Routine 04/02/2024 2:30 PM EST HPV MRNA E6/E7 REFLEX TO HPV 16, 18/45 Routine 02/12/2022 12:32 PM EST PAP SMEAR Routine 02/12/2022 12:32 PM EST from Last 3 Months or Most Recently Relevant to Health Maintenance Results * US Pelvis Transvaginal (10/13/2024 2:33 PM EDT) Anatomical Region Laterality Modality Pelvis Ultrasound 10/13/2024 2:33 PM EDT Narrative 10/13/2024 3:07 PM EDT [place] [address] Ultrasound Report Signed Patient: Ludmila Cooper MR#: [id number] 6 : 1975 Acct:[id number] Age/Sex: 49 / F ADM Date: 10/13/24 Loc: HO.US Attending Dr: Julee Dale MD Ordering Physician: Julee Cloud MD Date of Service: 10/13/24 Procedure(s): US pelvic and transvaginal Accession Number(s): [id number] cc: Julee Cloud MD EXAMINATION: US PELVIS CLINICAL INFORMATION: Metrorrhagia . Anemia. COMPARISON: May 13, 2022 TECHNIQUE: Ultrasound of the pelvis is performed using both transabdominal and transvaginal transducers along with Doppler. Transvaginal imaging is performed due to inadequate visualization transabdominally. FINDINGS: Uterus: The uterus is in anteversion flexion and measures 12 x 7 x 8 cm. The double wall endometrial thickness is 14 mm. There is a 9 mm round isoechoic abnormality within the fundus of the uterine cavity without flow on color Doppler interrogation. Nabothian cysts in the cervix. Adnexa: The right ovary is not identified. The left ovary is identified with flow on color Doppler interrogation no free fluid in the cul-de-sac. Left ovary measures 3 x 2 x 2 cm. Volume: 8 cc . There is a 2 cm anechoic lesion without septations. US/US pelvic and transvaginal IMPRESSION: Questionable 9 mm submucosal polyp, fundus of the uterus. 2 cm cystic lesion, left ovary. 14 mm thickened endometrial stripe. Electronically signed by: Leland Crisostomo MD 10/13/2024 03:04 PM EDT RP Dictated By: Leland Su MD Signed By: <Electronically signed by Leland Garces MD in OV> 10/13/24 1504 DD/ 1433 TD/TT: 10/13/24 1445 Almond Sorter: Procedure Note Donotuseinterpreter, Image - 10/13/2024 [place] [address] Ultrasound Report Signed Patient: Ludmila Cooper R#: [id number] 6 : 1975Acct:[id number] Age/Sex: 49 / FADM Date: 10/13/24 Loc: HO.US Attending Dr: Julee Dale MD Ordering Physician: Julee Cloud MD Date of Service: 10/13/24 Procedure(s): US pelvic and transvaginal Accession Number(s): [id number] cc: Julee Cloud MD EXAMINATION: US PELVIS CLINICAL INFORMATION: Metrorrhagia . Anemia. COMPARISON: May 13, 2022 TECHNIQUE: Ultrasound of the pelvis is performed using both transabdominal and transvaginal transducers along with Doppler. Transvaginal imaging is performed due to inadequate visualization transabdominally. FINDINGS: Uterus: The uterus is in anteversion flexion and measures 12 x 7 x 8 cm. The double wall endometrial thickness is 14 mm. There is a 9 mm round isoechoic abnormality within the fundus of the uterine cavity without flow on color Doppler interrogation. Nabothian cysts in the cervix. Adnexa: The right ovary is not identified. The left ovary is identified with flow on color Doppler interrogation no free fluid in the cul-de-sac. Left ovary measures 3 x 2 x 2 cm. Volume: 8 cc . There is a 2 cm anechoic lesion without septations. US/US pelvic and transvaginal IMPRESSION: Questionable 9 mm submucosal polyp, fundus of the uterus. 2 cm cystic lesion, left ovary. 14 mm thickened endometrial stripe. Electronically signed by: Leland rCisostomo MD 10/13/2024 03:04 PM EDT RP Dictated By: Leland Su MD Signed By: <Electronically signed by Leland Garces MDin OV> 10/13/24 1504 DD/ 1433 TD/TT: 10/13/24 1445 Almond Sorter: Result [facility] Julee Dale MD IMG US PROCEDURES Fin al Result * Hepatitis C Antibody with Reflex to HCV, RNA, Quantitative, Real-Time PCR (07/09/2024 11:01 AM EDT) Hepatitis C Antibody Nonreactive Nonreactive [facility] Comment:Antibodies to HCV no t detected; does not exclude early acuteHCV infection. Blood Venous blood specimen / Unknown 07/09/2024 11:01 AM EDT 07/09/2024 1:12 PM EDT Julee Dale MD LAB BLOOD ORDERABLES Final Result [facility] [address] [place] [phone] * HIV-1/2 Antigen and Antibodies, Fourth Generation, with Reflexes (07/09/2024 11:01 AM EDT) HIV AB/AG Nonreactive Nonreactive [facility] Comment:HIV-1 p24 Ag and/or HIV-1/HIV-2 Ab not detected.A test result that is nonreactive does not exclude thepossibility of exposure to or infection with HIV-1 and/orHIV-2. Nonreactive results in this assay for individualswith prior exposure to HIV-1 and/or HIV-2 may be due toantigen and antibody levels that are below the limit ofdetection of this assay.The [employer] HIV Ag/Ab Combo assay result andsupplemental assay results should be interpreted inconjunction with the patient's clinical presentation,history and other laboratory results. If the results areinconsistent with clinical evidence, additional testing issuggested to confirm the result. Blood Venous blood specimen / Unknown 07/09/2024 11:01 AM EDT 07/09/2024 1:12 PM EDT us Julee Dale MD LAB BLOOD ORDERABLES Final Result [facility] [address] [place] [phone] * Hemoglobin A1c (07/09/2024 11:01 AM EDT) Hemoglobin A1c 5.9 <6.0 % [facility] Comment:Hemoglobin A1C Refer ence Range Adults: 4.8 - 6.0 % Non diabetic: < 6.0 % Goal: < 7.0 %Additional Action Suggested: > 8.0 %Note: Hemoglobin A1c results are invalid for patients with abnormal amounts of HbF. Blood transfusions may impact the HbA1c concentration in the patient sample. Estimated Average Glucose 123 mg/dL [facility] Comment:eAG = Estimated ave rage glucose which is %A1C expressed asaverage glucose, using the formula of the Z9H-NjtucgnGyivnvh Glucose study (ADAG), Diabetes Care, Vol.31,#8,Oct. 2007 Blood Venous blood specimen / Unknown 07/09/2024 11:01 AM EDT 07/09/2024 1:07 PM EDT us Julee Dale MD LAB BLOOD ORDERABLES Final Result [facility] [address] [place] [phone] * BI Mammogram Screening Tomosynthesis Bilateral (04/02/2024 2:30 PM EST) Anatomical Region Laterality Modality Breast Bilateral Mammography 04/02/2024 2:30 PM EST Narrative 04/11/2024 3:43 PM EST [address] [place] [address] Mammography Report Signed Patient: Ludmila Cooper MR#: [id number] 6 : 1975 Acct:[id number] Age/Sex: 49 / F ADM Date: 04/02/24 Loc: HO.MAMMO Attending Dr: Julee Dale MD Ordering Physician: Julee Cloud MD Results: 1Negative Date of Service: 04/02/24 Follow Up: 1 Year From Orig inal Mammogram Procedure(s): MM tomosynthesis screening BI Accession Number(s): [id number] cc: Julee Cloud MD EXAMINATION: MM SCREENING [...] Shannan Pelaez DO 04/11/2024 03:40 PM EST RP Dictated By: Shannan Pelaez DO Signed By: <Electronically signed by Shannan Pelaez DO in OV> 04/11/24 1540 DD/ 1430 TD/TT: 04/02/24 1445 Almond Sorter: Procedure Note Donotuseinterpreter, Image - 04/11/2024 [facility] [address] [place] [address] Mammography Report Signed Patient: Ludmila Cooper HMR#: [id number] 6 : 1975Acct:[id number] Age/Sex: 49 / FADM Date: 04/02/24 Loc: HO.MAMMO Attending Dr: Julee Dale MD Ordering Physician: Julee Cloud MDResults: 1Negative Date of Service: 04/02/24Follow Up: 1 Year From Orig inal Mammogram Procedure(s): MM tomosynthesis screening BI Accession Number(s): [id number] cc: Julee Cloud MD EXAMINATION: MM SCREENING [...] Shannan Pelaez DO 04/11/2024 03:40 PM EST RP Dictated By: Shannan Pelaez DO Signed By: <Electronically signed by Shannan Pelaez DO in OV> 04/11/24 1540 DD/ 1430 TD/TT: 04/02/24 1445 Almond Sorter: Julee Dale MD IMG BI PROCEDURES Ankur kimberly Result - Final * HPV mRNA E6/E7 w/Reflex to HPV Genotypes 16, 18/45 (02/12/2022 12:32 PM EST) HPV nRNA E6/E7 Not Detected Not Detected [facility] Comment:Methodology: Transcr iption-Mediated AmplificationThis assay detects E6/E7 viral messenger RNA (mRNA) from 14high-risk HPV types (16,18,31,33,35,39,45,51,52,56,58,59,66,68).Cervical sources are required for HPV testing.If a vaginal source from a patient who has had atotal hysterectomy with removal of cervix wassubmitted, please contact the testing laboratoryfor alternative testing options.For additional information, please refer tohttp://education.Watchup/faq/AVJ847u3(This link if provided for information/educational purposes only.)THIS TEST WAS PERFORMED AT:[facility] [place] [address],[place] [phone] BECKFORD MD HPV mRNA E6/E7 [facility] HPV 16 RNA [facility] HPV 18/45 RNA [facility] 02/12/2022 12:3 2 PM EST 02/12/2022 5:30 PM EST [facility] External Provider LAB CYT OLOGY ORDERABLES Final Result [facility] [address] [place] [phone] * Pap Smear (02/12/2022 12:32 PM EST) 02/12/2022 12:3 2 PM EST 02/12/2022 5:30 PM EST Michele [facility] - 03/05/2022 1:04 PM EST ----- ------- Name: Ludmila Cooper Age/Sex: 47/F : 1975 Unit#: [id number] Attend Dr: Nathan Aguilera MD Re02/12/22 Status: DEP REF Location: [facility] Disch: ----- ------- SPEC : [id number] RECD: 02/12/22 STATUS: LEO SOMMERS NUM: [id number] [place]AP[place]: 02/12/22-1232 [facility] DR: Nathan Aguilera MD ENTERED: 02/12/22 SP TYPE: Pap Smr [facility] DR: Julee Cloud MD ORDERED: Pap Smear Interpretation General Category: Negative for intraepithelial lesion/malignancy. Adequacy: Endocervical component present. Interpretation: Reactive cellular changes. Abundant, partially obscuring blood present. Endometrial cells present over age 45. HPV mRNA E6/E7: NOT DETECTED This assay detects E6/E7 viral messenger RNA (mRNA) from 14 high-risk HPV types (16, 18, 31, 33, 35, 39, 45, 51, 52, 56, 58, 59, 66, 68) HPV testing performed by [facility], [place], [place]. See reference laboratory portion of the EMR for entire report. Clinical Information LMP: 02/11/22 Previous PAP test: Unknown, WNL Material Received ThinPrep-Cervical Copies To: Julee Cloud MD [address], [place] [phone] Nathan Aguilera MD [address] [place] [address] Dr. Harrington [address] [place] [address] [phone] ----- ------- Signed (signature on file) [place] 03/05/22 1304 ----- ------- END OF REPORT [facility] External Provider LAB [facility]T [facility] ORDERABLES Final Result [facility] [address] [place], [place] [phone] from Last 3 Months or Most Recently Relevant to Health Maintenance Insurance [employer] PARTIAL Care Teams Senior Abap Developer Relationship Specialty Start Date End Date Julee Cloud MD [address] [place] [address] PCP - General Family Medicine 11/12/17
--- OUTSIDE RECORDS SUMMARY | 2024-12-29 19:43 | XMS_ITS | Encounter Summary ---
Author Organization [employer] Address [address] [facility] 7t h Floor [place] [phone] Care Team Providers Care Cutter First Name Role Phone Julee Cloud MD Primary Care Provide r Reason for Visit * Reason Comments Med Refill Encounter Details Date Type Department Care Team ([facility] st Contact Info) Description 04/07/2023 Refill [facility] [address] [place] [address] Julee Cloud MD [address] [place] [phone] Social History Tobacco Use Types Packs/Day Years [...] on filedocumented in this encounter Care Teams Cutter First Relationship Specialty Start Date End Date Julee Cloud MD [address] [place] [address] [phone] PCP - General Family Medicine 11/12/17 documented as of this encounter
--- OUTSIDE RECORDS SUMMARY | 2024-12-29 19:43 | XMS_ITS | Encounter Summary ---
Author Organization [employer] Address [address] [facility] [address] 7t [place] [address] Care Team Providers Care Iron And Steel Work Supervisor Name Role Phone Julee Cloud MD Primary Care Provide r Encounter Details Date Type Department Care Team (Late st Contact Info) Description 12/11/2022 Orders Only [facility] CH[facility] MED & PEDS [address] [place], [place] [phone] Yajaira Saavedra LPN Social History Tobacco Use [...] on filedocumented in this encounter Care Teams Iron And Steel Work Supervisor Relationship Specialty Start Date End Date Julee Cloud MD [address] [place] [address] PCP - General Family Medicine 11/12/17 documented as of this encounter
--- OUTSIDE RECORDS SUMMARY | 2024-12-29 19:43 | XMS_ITS | Encounter Summary ---
Author Organization [employer] Address [address] [facility] [address] 7t [place] [address] Care Team Providers Care Racing Driver Name Role Phone Julee Cloud MD Primary Care Provide r Encounter Details Date Type Department Care Team (Late st Contact Info) Description 10/11/2022 Orders Only [facility] MED & PEDS [address] [place] [address] Aislinn Contreras LPN Social History Tobacco Use [...] on filedocumented in this encounter Care Teams Racing Driver Relationship Specialty Start Date End Date Julee Cloud MD [address] [place] [phone] PCP - General Family Medicine 11/12/17 documented as of this encounter
== END 2024-12-29 15:53 | disposition home or self-care (01) ==
PROVIDERS: PCP Internal Medicine; Visit Provider Obstetrics & Gynecology
DX: N93.9 Abnormal uterine and vaginal bleeding, unspecified (principal)
CPT/HCPCS: 99213

== ENCOUNTER 2025-01-07 09:11 | Day surgery (SDC) | payer MEDICAID, SELFPAY ==
--- OUTSIDE RECORDS SUMMARY | 2024-12-30 13:46 | XMS_ITS | Encounter Summary ---
Author Organization [employer] Address [address] [facility] 7t h Floor [place] [phone] Care Team Providers Care Quantitative Software Engineer Name Role Phone Julee Cloud MD Primary Care Provide r Reason for Visit * Reason Comments Med Refill Encounter Details Date Type Department Care Team ([facility] st Contact Info) Description 04/30/2023 Refill [facility] [address] [place] [address] Julee Cloud MD [address] [place] [phone] Social History Tobacco Use Types Packs/Day Years [...] on filedocumented in this encounter Care Teams Quantitative Software Engineer Relationship Specialty Start Date End Date Julee Cloud MD [address] [place] [address] [phone] PCP - General Family Medicine 11/12/17 documented as of this encounter
--- OUTSIDE RECORDS SUMMARY | 2024-12-30 13:46 | XMS_ITS | Encounter Summary ---
Author Organization [employer] Address [address] [facility] [address] [place] [address] Care Team Providers Care Sales Driver Name Role Phone Julee Cloud MD Primary Care Provide r Encounter Details Date Type Department Care Team (Late st Contact Info) Description 12/11/2022 Orders Only [facility] MED & PEDS [address] [place], [place] [phone] Yajaira Saavedra LPN Social History Tobacco Use [...] filedocumented in this encounter Care Teams Sales Driver Relationship Specialty Start Date End Date Julee Cloud MD [address] [place] [address] PCP - General Family Medicine 11/12/17 documented as of this encounter
--- OUTSIDE RECORDS SUMMARY | 2024-12-30 13:46 | XMS_ITS | Encounter Summary ---
Author Organization [employer] Address [address] 7[address] [place] [address] Care Team Providers Care Paraffin Plant Operator Name Role Phone Julee Cloud MD Primary Care Provide r Encounter Details Date Type Department Care Team (Late st Contact Info) Description 10/11/2022 Orders Only [facility] CHC MED & PEDS [address] [place] [address] Aislinn Contreras LPN Social History Tobacco Use [...] on filedocumented in this encounter Care Teams Paraffin Plant Operator Relationship Specialty Start Date End Date Julee Cloud MD [address] [place] [phone] PCP - General Family Medicine 11/12/17 documented as of this encounter
--- OUTSIDE RECORDS SUMMARY | 2024-12-30 13:46 | XMS_ITS | Encounter Summary ---
Author Organization [email or web address] Address [address] [facility] [address] [place] [phone] Care Team Providers Care Continuous Wave Operator Name Role Phone Julee Cloud MD Primary Care Provide r Reason for Visit * Reason Comments Med Refill Encounter Details Date Type Department Care Team ([facility] st Contact Info) Description 04/07/2023 Refill [facility] MEDICINE [address] [place] [address] Julee Cloud MD [address] [place] [phone] Social History Tobacco Use Types Packs/Day Years [...] on filedocumented in this encounter Care Teams Continuous Wave Operator Relationship Specialty Start Date End Date Julee Cloud MD [address] [place] [address] [phone] PCP - General Family Medicine 11/12/17 documented as of this encounter
--- OUTSIDE RECORDS SUMMARY | 2024-12-30 13:46 | XMS_ITS | Clinical Summary ---
Author Organization [employer] Address [address] [facility] 7t [place] [address] Care Team Providers Care Email Specialist Name Role Phone Julee Cloud MD Primary [...] Department Care Team Description 10/13/2024 Orders Only [facility] CHC MED & PEDS [address] [place] [address] Julee lCoud MD Endometrial thickening on ultrasound; Uterine polyp [...] PM EDT Narrative 10/13/2024 3:07 PM EDT [place] [address] Ultrasound Report Signed Patient: Ludmila Cooper MR#: [id number] 6 : 1975 Acct:[id number] Age/Sex: 49 / F ADM Date: 10/13/24 Loc: HO.US Attending Dr: Julee Dale MD Ordering Physician: Julee Cloud MD Date of Service: 10/13/24 Procedure(s): US pelvic and transvaginal Accession Number(s): [id number] cc: Julee Cloud MD EXAMINATION: US PELVIS [...] 10/13/24 1504 DD/ 1433 TD/TT: 10/13/24 1445 Video Games Mechanic: Procedure Note Donotuseinterpreter, Image - 10/13/2024 [place] [address] Ultrasound Report Signed Patient: Ludmila Cooper R#: [id number] 6 : 1975Acct:[id number] Age/Sex: 49 / FADM Date: 10/13/24 Loc: HO.US Attending Dr: Julee Dale MD Ordering Physician: Julee Cloud MD Date of Service: 10/13/24 Procedure(s): US pelvic and transvaginal Accession Number(s): [id number] cc: Julee Cloud MD EXAMINATION: US PELVIS [...] 10/13/24 1504 DD/ 1433 TD/TT: 10/13/24 1445 Video Games Mechanic: Result [facility] Julee Dale MD IMG US PROCEDURES Fin al Result * Hepatitis C Antibody with Reflex to HCV, RNA, Quantitative, Real-Time PCR (07/09/2024 11:01 AM EDT) Hepatitis C Antibody Nonreactive Nonreactive [facility] Comment:Antibodies to HCV no t detected; does not exclude early acuteHCV infection. Blood Venous blood specimen / Unknown 07/09/2024 11:01 AM EDT 07/09/2024 1:12 PM EDT Julee Dale MD LAB BLOOD ORDERABLES Final Result [facility] [address] [place] [phone] * HIV-1/2 Antigen and Antibodies, Fourth Generation, with Reflexes (07/09/2024 11:01 AM EDT) HIV AB/AG Nonreactive Nonreactive [facility] Comment:HIV-1 p24 Ag and/or HIV-1/HIV-2 Ab not detected.A test result that is nonreactive does not exclude thepossibility of exposure to or infection with HIV-1 and/orHIV-2. Nonreactive results in this assay for individualswith prior exposure to HIV-1 and/or HIV-2 may be due toantigen and antibody levels that are below the limit ofdetection of this assay.The [employer] HIV Ag/Ab Combo assay result andsupplemental assay results should be interpreted inconjunction with the patient's clinical presentation,history and other laboratory results. If the results areinconsistent with clinical evidence, additional testing issuggested to confirm the result. Blood Venous blood specimen / Unknown 07/09/2024 11:01 AM EDT 07/09/2024 1:12 PM EDT us Julee Dale MD LAB BLOOD ORDERABLES Final Result [facility] [address] [place] [phone] * Hemoglobin A1c (07/09/2024 11:01 AM EDT) Hemoglobin A1c 5.9 <6.0 % [facility] Comment:Hemoglobin A1C Refer ence Range Adults: 4.8 - 6.0 % Non diabetic: < 6.0 % Goal: < 7.0 %Additional Action Suggested: > 8.0 %Note: Hemoglobin A1c results are invalid for patients with abnormal amounts of HbF. Blood transfusions may impact the HbA1c concentration in the patient sample. Estimated Average Glucose 123 mg/dL [facility] Comment:eAG = Estimated ave rage glucose which is %A1C expressed asaverage glucose, using the formula of the Q8X-JsvuzmaZglexxh Glucose study (ADAG), Diabetes Care, Vol.31,#8,Oct. 2007 Blood Venous blood specimen / Unknown 07/09/2024 11:01 AM EDT 07/09/2024 1:07 PM EDT us Julee Dale MD LAB BLOOD ORDERABLES Final Result [facility] [address] [place] [address] [phone] * BI Mammogram Screening Tomosynthesis Bilateral (04/02/2024 2:30 PM EST) Anatomical Region Laterality Modality Breast Bilateral Mammography 04/02/2024 2:30 PM EST Narrative 04/11/2024 3:43 PM EST [address] [place] [address] Mammography Report Signed Patient: Ludmila Cooper MR#: [id number] 6 : 1975 Acct:[id number] Age/Sex: 49 / F ADM Date: 04/02/24 Loc: HO.MAMMO Attending Dr: Julee Dale MD Ordering Physician: Julee Cloud MD Results: 1Negative Date of Service: 04/02/24 Follow Up: 1 Year From Orig inal Mammogram Procedure(s): MM tomosynthesis screening BI Accession Number(s): [id number] cc: Julee Cloud MD EXAMINATION: MM SCREENING [...] 04/11/24 1540 DD/ 1430 TD/TT: 04/02/24 1445 Video Games Mechanic: Procedure Note Donotuseinterpreter, Image - 04/11/2024 [facility] [address] [place] [address] Mammography Report Signed Patient: Ludmila Cooper HMR#: [id number] 6 : 1975Acct:[id number] Age/Sex: 49 / FADM Date: 04/02/24 Loc: HO.MAMMO Attending Dr: Julee Dale MD Ordering Physician: Julee Cloud MDResults: 1Negative Date of Service: 04/02/24Follow Up: 1 Year From Orig inal Mammogram Procedure(s): MM tomosynthesis screening BI Accession Number(s): [id number] cc: Julee Cloud MD EXAMINATION: MM SCREENING [...] 04/11/24 1540 DD/ 1430 TD/TT: 04/02/24 1445 Video Games Mechanic: Julee Dale MD IMG BI PROCEDURES Ankur kimberly Result - Final * HPV mRNA E6/E7 w/Reflex to HPV Genotypes 16, 18/45 (02/12/2022 12:32 PM EST) HPV nRNA E6/E7 Not Detected Not Detected [facility] Comment:Methodology: Transcr iption-Mediated AmplificationThis assay detects E6/E7 viral messenger RNA (mRNA) from 14high-risk HPV types (16,18,31,33,35,39,45,51,52,56,58,59,66,68).Cervical sources are required for HPV testing.If a vaginal source from a patient who has had atotal hysterectomy with removal of cervix wassubmitted, please contact the testing laboratoryfor alternative testing options.For additional information, please refer [email or web address].[email or web address]/HZP184i2(This link if provided for information/educational purposes only.)THIS TEST WAS PERFORMED AT:[facility] [place] [address],[place] [address]QLRGHGOOD BECKFORD MD HPV mRNA E6/E7 [facility] HPV 16 RNA [facility] HPV 18/45 RNA [facility] 02/12/2022 12:3 2 PM EST 02/12/2022 5:30 PM EST [facility] External Provider LAB CYT OLOGY ORDERABLES Final Result [facility] [address] [place] [address] [phone] * Pap Smear (02/12/2022 12:32 PM EST) 02/12/2022 12:3 2 PM EST 02/12/2022 5:30 PM EST Michele [facility] - 03/05/2022 1:04 PM EST ----- ------- Name: Ludmila Cooper Age/Sex: 47/F : 1975 Unit#: [id number] Attend Dr: Nathan Aguilera MD Re02/12/22 Status: DEP REF Location: [facility] Disch: ----- ------- SPEC : [id number] RECD: 02/12/22 STATUS: LEO SOMMERS NUM: [id number] [place]AP[place]: 02/12/22-1232 [facility] DR: Nathan Aguilera MD ENTERED: 02/12/22 SP TYPE: Pap Smr [facility] DR: Julee Cloud MD ORDERED: Pap Smear [...] 59, 66, 68) HPV testing performed by [facility], [place], [place]. See reference laboratory portion of the EMR for entire report. Clinical Information LMP: 02/11/22 Previous PAP test: Unknown, WNL Material Received ThinPrep-Cervical Copies To: Julee Cloud MD [address] [place], [place] [phone] Nathan Aguilera MD [address] [place] [address] Dr. Harrington [address] [place] [address] [phone] ----- ------- Signed (signature on file) [place] 03/05/22 1304 ----- ------- END OF REPORT [facility] External Provider LAB CYT [facility] ORDERABLES Final Result [facility] [address] [place], [place] [phone] from Last 3 Months or Most Recently Relevant to Health Maintenance Insurance [email or web address] C3 HSN PARTIAL Care Teams Email Specialist Relationship Specialty Start Date End Date Julee Cloud MD [address] [place] [address] PCP - General Family Medicine 11/12/17
[2025-01-05 07:09] VITALS: BMI 26.5
--- NOTE | 2025-01-05 09:20 | P.CONAN_ITS ---
Documented by User: Ilsa Mcguire NP 01/05/25 09:21 HPI - Anesthesia Eval Consult details Narrative: 50yo F for D&C Hysteroscopy,possible myomectomy,possible polypectomy [facility] Active Problems Active Problems: All Active Problems Abnormal uterine bleeding (AUB) (Acute) Past Medical History Medical History Pre-diabetes Asthma Surgical History Surgical History (Updated 01/07/25 @ 09:27 by Kareen Perez RN) No pertinent past surgical history Social History Social History Alcohol intake: never Patient Tobacco Use Status: Never used Tobacco Use of substances other than those prescribed or required for medical reasons: No Are you DNR?: No Advance Directives: No Advance Directives Information Provided: Yes : No Meds Allergies Allergy/AdvReac Type Severity Reaction Status Date / Time No Known Allergies Allergy Verified 12/29/24 15:23 Exam Height,Weight and Vital Signs: Height 4 ft 10 in Weight 57.606 kg Assessment and Plan Assessment Anesthesia Assessment: Chart Reviewed Documented by User: Vicky Xiong MD 01/07/25 10:07 [facility] Past Medical History Medical History Pre-diabetes Asthma Family History Family history of problems with anesthesia: No Surgical History Surgical History (Updated 01/07/25 @ 09:27 by Kareen Perze RN) No pertinent past surgical history History of Problems with Anesthesia: No Social History Social History Alcohol intake: never Patient Tobacco Use Status: Never used Tobacco Use of substances other than those prescribed or required for medical reasons: No Are you DNR?: No Advance Directives: No Advance Directives Information Provided: Yes : No Meds Allergies Allergy/AdvReac Type Severity Reaction Status Date / Time No Known Allergies Allergy Verified 12/29/24 15:23 Exam Airway Mallampati Class: II TM Dist: >3cm Neck ROM: Full Heart: rrr Lungs: cta Assessment and Plan Assessment Anesthesia Assessment: Anesthesia Plan Discussed Final Anesthetic Review Family History of Problems with Anesthesia: No History of Problems with Anesthesia: No NPO: Yes ASA Class: II Final Preanesthetic Review: No Changes in Pt Med Stat, Meds/Allgs Chart Reviewed and Consent Obtained/Reviewed Patient Risk: Low Procedure Risk: Low Anesthetic Plan Anesthetic Plan: GA Disposition: Standard PACU
[2025-01-07] VITALS (7 sets, daily range): BP systolic 113–142; BP diastolic 62–77; PULSE 64–93; RESP 10–16; TEMP 36.1–36.4; O2SAT 96–98; BMI 25.2
[2025-01-07] MEDS: Lactated Ringers 1,000 ML 100 ML IVCONT (09:47)
[2025-01-07 09:55] LABS: UPreg QC Valid YES
--- NOTE | 2025-01-07 10:23 | MHC.SHP ---
Pre-Procedural Eval Section A - 24 Hr Update-Section A only Date of Service: 01/07/25 The patient is an INPATIENT: No Changes since office visit: No Cold of Flu in the past 2 weeks, No New Medical Problems, No Changes in Medication and No Patient answered all questions The patient has been examined within 24 hours of the surgical procedure. The History & Physical has been completed within 30 days and I have reviewed it.: Yes Section B - Complete if H&P > 30 days Chief Complaint: Abnormal uterine and vaginal bleeding, unspecified Allergies: Allergies Allergy/AdvReac Type Severity Reaction Status Date / Time No Known Allergies Allergy Verified 12/29/24 15:23 Plan Diagnosis/Plan: Unchanged I have reviewed the history and physical and performed a pertinent physical examination on my patient. No changes have occurred unless specified. Time Spent With Patient Time: Total time managing care of this patient today ____ minutes.
--- NOTE | 2025-01-07 11:47 | P.BOP_ITS ---
Brief Operative Note Date of Service: 01/07/25 Pre-op diagnosis: AUB Post-op diagnosis: same (Endometrial polyp) Procedure: Hysteroscopy D&C, Polypectomy Surgeon: Nathan Aguilera MD Anesthesia: GLMA Was an Duct Installer used for this Procedure?: No Estimated blood loss (mL): 0 Pathology: other (Endometrial Scrapping. Polyp) Condition: stable Disposition: PACU
--- NOTE | 2025-01-07 11:47 | P.OP_ITS ---
Operative Note Operative Note Date of Service: 01/07/25 Narrative: Preop Diagnosis: Abnormal uterine bleeding Operation: Diagnostic Hysteroscopy, Dilataion & Curettage and polypectomy Post Op Diagnosis: Endometrial Polyp QBL: Minimal Anesthesia: GLMA Surgeon: Nathan Aguilera MD Brewery Technician: None Complication: None Pathology: Endometrial Scrapings, Endometrial polyp Procedure: The patient was put in the dorsal lithotomy position, scrubbed, and draped in the usual manner. A sterile speculum was inserted in the patient's vagina. The anterior lip of the cervix was grasped with a single tooth tenaculum. The cervix was dilated up to 5 mm, then the scope was inserted in the patient's uterus. Inspection revealed endometrial polyp. The Myosure Reach device was used; it was introduced through the operative channel and polypectomy done with no complications. The scope was then taken out from the uterine cavity, sharp curettings was carried on with minimal to moderate amount of tissues retrieved. At the end of the procedure, all instruments were taken out of the patient uterine and vaginal cavity. The single tooth tenaculum was removed and homeostasis was assured using pressure,. The patient tolerated the procedure well and was transferred to the PACU in a stable condition.
== END 2025-01-07 13:32 | disposition home or self-care (01) ==
PROVIDERS: PCP Internal Medicine; Visit Provider Obstetrics & Gynecology
PROC: 0UDB8ZZ Extraction of Endometrium, Via Natural or Artificial Opening Endoscopic (ICD-10-PCS; CPT 58558; principal; 2025-01-07 11:30)
DX: N93.9 Abnormal uterine and vaginal bleeding, unspecified (principal); N84.0 Polyp of corpus uteri; N88.8 Other specified noninflammatory disorders of cervix uteri; J45.909 Unspecified asthma, uncomplicated; R73.03 Prediabetes
CPT/HCPCS: 58558; 81025; 88305; J1100; J1885; J2003; J2250; J2371; J2405; J2704; J3010

== ENCOUNTER → 2025-01-07 09:11 | Outpatient (BNV) | payer MEDICAID, SELFPAY | PROVIDERS: PCP Internal Medicine; Visit Provider Obstetrics & Gynecology | DX: N93.9 Abnormal uterine and vaginal bleeding, unspecified (principal) | CPT/HCPCS: 58558 ==

== ENCOUNTER 2025-01-20 12:54 | Outpatient (REF) | payer MEDICAID, SELFPAY ==
[2025-01-20 13:58] LABS: Hematocrit 33.1 % (37.0-47.0); Hemoglobin 10.2 g/dl (12.0-16.0); Mean Corpuscular HGB Conc 30.8 g/dl (31.0-35.0); Mean Corpuscular Hemoglobin 24.4 pg (27.0-33.0); Mean Corpuscular Volume 79.2 fL (80.0-98.0); NRBC Abs Auto 0.000 X10*3/uL (0.0-0.012); NRBC Pct Auto 0.0 /100WBC (0.0-0.2); Platelet Count 230 X10*3/uL (160-400); Red Blood Count 4.18 X10*6/uL (4.20-5.50); White Blood Count 6.6 X10*3/uL (4.8-10.8)
--- OUTSIDE RECORDS SUMMARY | 2025-01-20 19:08 | XMS_ITS | Encounter Summary ---
Author Organization [employer] Address [address] [facility] [address] [place] [phone] Care Team Providers Care Water Valve Mechanic Name Role Phone Julee Cloud MD Primary Care Provide r Reason for Visit * Reason Comments Med Refill Encounter Details Date Type Department Care Team ([facility] st Contact Info) Description 04/30/2023 Refill [facility] [address] [place] [address] Julee Cloud MD [address] [place] [phone] Social History Tobacco Use Types Packs/Day Years [...] on filedocumented in this encounter Care Teams Water Valve Mechanic Relationship Specialty Start Date End Date Julee lCoud MD [address] [place] [address] [phone] PCP - General Family Medicine 11/12/17 documented as of this encounter
--- OUTSIDE RECORDS SUMMARY | 2025-01-20 19:08 | XMS_ITS | Encounter Summary ---
Author Organization [employer] Address [address] [facility] [address] [place] [address] Care Team Providers Care Spray Dyer Name Role Phone Julee Cloud MD Primary Care Provide r Encounter Details Date Type Department Care Team (Late st Contact Info) Description 12/11/2022 Orders Only [facility] CHC MED & PEDS [address] [place], [place] [phone] Yajaira Saavedra LPN Social History Tobacco Use [...] on filedocumented in this encounter Care Teams Spray Dyer Relationship Specialty Start Date End Date Julee Cloud MD [address] [place] [address] PCP - General Family Medicine 11/12/17 documented as of this encounter
--- OUTSIDE RECORDS SUMMARY | 2025-01-20 19:08 | XMS_ITS | Clinical Summary ---
Author Organization [employer] Address [address] [facility] [address] [place] [address] Care Team Providers Care Assistant To The Director Name Role Phone Julee Cloud MD Primary [...] Encounters Date Type Department Care Team Description 01/20/2025 Orders Only GENERIC EXTERNAL DATA DEPARTMENT Provider, Generic External Data 01/12/2025 Telephone [facility] [address] [place] [address] [phone] Julee Cloud MD Appointment Request 01/07/2025 Orders Only GENERIC EXTERNAL DATA DEPARTMENT Provider, Generic External Data 12/30/2024 Orders Only GENERIC EXTERNAL DATA DEPARTMENT Provider, Generic External Data 12/29/2024 Orders Only GENERIC EXTERNAL DATA DEPARTMENT Provider, Generic External Data from Last 3 Months Social History Tobacco [...] Td or Tdap) 09/23/2022 09/23/2012, 01/24/2009, 09/28/1997 RSV Patients and Patients Aged 60 years or older (1 - Risk 50-74 years 1-dose series) 2023 Zoster Vaccines (1 of 2) 2023 COVID-19 Vaccine ( - 2024- season) 2024 Influenza Vaccine (#1) 2024 8, 02/22/2014, 04/14/2012, Additional history exists Mammogram 04/02/2025 04/02/2024, 03/24/2023 Alcohol/Substance Use Screening 07/08/2025 07/08/2024 Depression Screening 07/08/2025 07/08/2024, 07/09/19 25 Disability Screening 07/08/2025 07/08/2024 SDOH Screening 07/08/2025 07/08/2024 Diabetes: Hemoglobin A1C 07/09/2025 07/09/2024, 05/02 Tobacco Screening 09/15/2025 09/15/2024 Pap Smear 12/31/2027 12/30/2024, 02/12/2022 Cervical Cancer Screening 12/29/2029 HPV/Cotest 12/29/2029 12/29/2024, 01/31, 06/03/2017 HIV Screening Completed 07/09/2024 Hepatitis C Screening [...] Procedure Name Priority Date/Time Associated Diagnosis Comments HCG, TOTAL, QN Routine 01/20/2025 1:50 PM EST TSH W/REFLEX TO FT4 Routine 01/20/2025 1 :50 PM EST CBC Routine 01/20/2025 1:50 PM EST HEMATOXYLIN AND EOSIN STAIN Routine 01/07/2025 11:58 AM EST HCG, QL, URINE Routine 01/07/2025 9:21 AM EST PAP SMEAR Routine 12/30/2024 4:01 PM EDT HPV DNA, LOW/HIGH RISK Routine 4:01 PM EDT CHLAMYDIA/N. GONORRHOEAE RNA, TMA, UROGENITAL Routine 12/29/2024 3:19 PM EDT HEPATITIS C AB W/REFL TO HCV RNA, QN, PCR Routine 07/09/2024 11:01 AM EDT Health care maintenance HIV 1/2 ANTIGEN/ANTIBODY, FOURTH GENERATION W/RFL Routine 07/09/2024 11:01 AM EDT Health care maintenance HEMOGLOBIN A1C Routine 07/09/2024 11:01 AM EDT Health care maintenance BI MAMMOGRAM SCREENING TOMOSYNTHESIS BILATERAL Routine 04/02/2024 2:30 PM EST from Last 3 Months or Most Recently Relevant to Health Maintenance Results * TSH with Reflex to Free T4 (01/20/2025 1:50 PM EST) TSH reflex Free T4 1.42 0.32 - 4.0 uIU/mL [facility] 01/20/2025 1:50 PM EST 01/20/2025 1:50 PM EST us Generic External Data Provider LAB BLOOD ORDERAB LES Final Result Performing Organization Address [facility]/ZIP Co de Phone Number [facility] [address] [place] [phone] * (ABNORMAL) CBC (01/20/2025 1:50 PM EST) [facility] White Blood Count 6.6 4.8 - 10.8 X10*3/uL [facility] Red Blood Count 4.18(L) 4.20 - 5.50 X10*6/uL [facility] Hemoglobin 10.2(L) 12.0 - 16.0 g/dl [facility] Hematocrit 33.1(L) 37.0 - 47.0 % [facility] Mean Corpuscular Volume 79.2(L) 80.0 - 98.0 fL [facility] Mean Corpuscular Hemoglobin 24.4(L) 27.0 - 33.0 pg [facility] Mean Corpuscular HGB Conc 30.8(L) 31.0 - 35.0 g/dl [facility] Red Cell Distribution Width 14.9 11.0 - 16.0 % [facility] Platelet Count 230 160 - 400 X10*3/uL [facility] Mean Platelet Volume 10.8 9.4 - 12.3 fL [facility] NRBC Pct Auto 0.0 0.0 - 0.2 /100WBC [facility] NRBC Abs Auto 0.000 0.0 - 0.012 X10*3/uL [facility] 01/20/2025 1:50 PM EST 01/20/2025 1:50 PM EST us Generic External Data Provider LAB BLOOD ORDERAB LES Final Result Performing Organization Address City/[facility]/ZIP Co de Phone Number [facility] [address] [place] [address] [phone] * hCG, Total, Quantitative (01/20/2025 1:50 PM EST) HCG Quantitative <2 mIU/mL [facility] Comment:Weeks post LMP Appro ximate hCG(Last Menstrual Period) Range (mIU/ml)3 - 4 weeks 9 - 1304 - 5 weeks 75 - 2,6005 - 6 weeks 850 - 20,8006 - 7 weeks 4000 - 100,2007 - 12 weeks 11,500 - 289,10976 - 16 weeks 18,300 - 137,10527 - 29 weeks (2nd trimester) 1,400 - 53,90223 - 41 weeks (3rd trimester) 940 - 60,000The Odell B- hCG assay is used for the early detection ofpregnancy; it cannot be used to diagnose any conditionunrelated to . If a B-hCG level is not supportedby the clinical evidence, results should be confirmed by analternative method (qualitative urine hCG, for example). 01/20/2025 1:50 PM EST 01/20/2025 1:50 PM EST us Generic External Data Provider LAB BLOOD ORDERAB LES Final Result Performing Organization Address [facility] Co de Phone Number [facility] [address] [place] [address] [phone] * Hematoxylin and Eosin Stain (01/07/2025 11:58 AM EST) 01/07/2025 11:5 8 AM EST 01/07/2025 1:20 PM EST Narrative [facility] - 01/10/2025 1:59 PM EST ----- ------- Name: Ludmila Cooper Age/Sex: 50/F : 1975 [id number]#: [id number] Attend Dr: Nathan Aguilera MD Re01/07/25 Status: [facility] Location: [facility] Disch: ----- ------- SPEC : [id number] RECD: 01/07/25-1320 STATUS: ROSEMARYMee SOMMERS NUM: [id number] CHAPIN: 01/07/25-1158 [facility] DR: Nathan Aguilera MD ENTERED: 01/07/25-1332 SP TYPE: Surgical OTHR DR: Julee Cloud MD ORDERED: HE Stain/4, Gross Micro L4/2 Diagnosis A. Endometrial polyp, resection: Fragments of benign polyp and benign endometrium with focal secretory changes; no atypia or carcinoma. B. Endometrium, curettage: Benign dyssynchronous endometrium with focal secretory changes and focal ectatic vessel with fibrin thrombus; no atypia or carcinoma. Clinical History Pre-Op Dx: Abnormal uterine and vaginal bleeding, unspecified Post-Op Dx: Endometrial polyp Microscopic Description Microscopic sections reviewed. Material Received A. Endometrial polyp B. [facility] Gross Description A. Received in formalin in a mesh bag, is a 2.5 x 2.0 x 0.3 cm aggregate of almendarez- pink soft tissue fragments, totally submitted in A1. B. Received in formalin is a 2.2 x 1.5 x 0.2 cm aggregate of almendarez-pink soft tissue, totally submitted in B1. (RJD) IHC S/NG Disclaimer NOTE: Unless otherwise stated, all tissue is formalin-fixed and paraffin-embedded. Some or all of the immunohistochemical tests reported herein may have been developed and their performance characteristics determined by [facility]. They have not been cleared or approved by the U.S. Food and Drug Administration (FDA). However, the FDA has determined that such clearance or approval is not necessary. This laboratory is certified under the Clinical Laboratory Improvement Amendments of 1988 (CLIA) as qualified to perform high complexity clinical laboratory testing. CONTINUED ON NEXT PAGE ----- ------- Name: KennethLudmila Hathaway Age/Sex: 50/F : 1975 Unit#: [id number] Attend Dr: Nathan Aguilera MD Re01/07/25 Status: [facility] Location: [facility] Disch: ----- ------- SPEC : [id number] RECD: 01/07/250 STATUS: LEO MATTHIEU NUM: [id number] CHAPIN: 01/07/25-1158 [facility] DR: Nathan Aguilera MD ENTERED: 01/07/258222 SP TYPE: Surgical OTHR DR: Julee Cloud MD ORDERED: RACHELE Stain/4, Devan Micro L4/2 Copies To: Julee Cloud MD [address] [address] Nathan Aguilera MD [facility] Women's Services [address] [place] [address] Drive [address] [place] [phone] ----- ------- Signed (signature on file) Le Dasia 01/10/25 1359 ----- ------- END OF REPORT Generic External Data Provider LAB BLOOD ORDERAB LES Final Result Performing Organization Address [facility] Co de Phone Number [facility] [address] [place] [phone] * HCG, Qualitative, Urine (01/07/2025 9:21 AM EST) Urine NEGATIVE NEGATIVE [facility] Comment:This test was develo ped to detect early . Falsenegative results may occur after the 5th - 7th week ofpregnancy when using this test method. If clinicallyindicated, consider a serum hCG. 01/07/2025 9:21 AM EST 01/07/2025 9:47 AM EST Generic External Data Provider LAB URINE ORDERAB LES Final Result Performing Organization Address [facility] Co de Phone Number [facility] [address] [place] [phone] * Pap Smear (12/30/2024 4:01 PM EDT) 12/30/2024 4:01 PM EDT 12/31/2024 9:09 AM EDT Narrative [facility] - 01/07/2025 3:04 PM EST ----- ------- Name: Ludmila Cooper Age/Sex: 49/F : 1975 Unit#: [id number] Attend Dr: Nathan Aguilera MD Re12/29/24 Status: [facility] REF Location: [facility] Disch: ----- ------- SPEC : [id number] RECD: 12/31/24 STATUS: LEO SOMMERS NUM: [id number] CHAPIN: 12/30/24 [facility] DR: Nathan Aguliera MD ENTERED: 12/31/24 SP TYPE: Pap Smr OTHR DR: Julee Cloud MD ORDERED: Pap Smear Interpretation Satisfactory for evaluation (following reprocessing with acid wash procedure). Negative for intraepithelial lesion or malignancy. HPV High Risk: Negative HPV Genotyping 16: Negative HPV Genotyping 18: Negative Clinical Information LMP: Unknown date Previous PAP test: Unknown date/findings Other history: Abnormal uterine bleeding Material Received ThinPrep-Cervical PAP Disclaimer As of December 24, 2023, the technical services to include automated prescreening performed by the ThinPrep Imaging System, PAP screening and HPV testing will be performed at [facility] (CLIA #[id number]), [address] [place] [address]. Testing for HPV was performed using the [employer] system. The presence of HPV in the female genital tract is associated with a number of diseases, including cervical carcinoma. The HPV DNA high risk pool tests for HPV 31, 33, 35, 39, 45, 51, 52, 56, 58, 59, 66 and 68. The testing for HPV 16 and 18 genotypes has also been performed. A positive result indicates detection of nucleic acid sequences from one or more subtypes, whereas a negative result indicates such sequences were not detected. All professional services are performed by [facility] ([address] [place] [address]; ; CLIA #[id number]). The PAP Test is a screening procedure with the inherent possibility of both false negative and false positive results. Results should be interpreted in the context of historic and current clinical findings. Reliability of the PAP Test is enhanced by performing the test on a regular repetitive basis. CONTINUED ON NEXT PAGE ----- ------- Name: Ludmila Cooper Age/Sex: 49/F : 1975 Unit#: [id number] Attend Dr: Nathan Aguilera MD Re12/29/24 Status: DEP REF Location: [facility] Disch: ----- ------- SPEC : [id number] RECD: 12/31/24 STATUS: LEO SOMMERS NUM: [id number] CHAPIN: 12/30/[address] [facility] DR: Nathan Aguilera MD ENTERED: 12/31/24 SP TYPE: Pap Smr OTHR DR: Julee Cloud MD ORDERED: Pap Smear Copies To: Julee Cloud MD [facility] [address] [place] [address] Nathan Aguilera MD [facility] Women's Services [address] [place] [address] ----- ------- Signed (signature on file) EDWARD Hair (ASCP) 01/07/25 1504 ----- ------- END OF REPORT us Generic External Data Provider LAB CYTOLOGY VALARIE RIVERS Final Result [facility] [address] [place] [address] [phone] * HPV DNA, Low/High Risk (12/29/2024 4:01 PM EDT) HPV High Risk Negative Negative [facility] HPV Genotype 16 Negative Negative [facility] HPV Genotype 18 Negative Negative [facility] Comment:HPV testing performe d at [facility] (CLIA#[id number]), [address] [place] [address].Testing for HPV was performed using the [employer] 6800system. The presence of HPV in the female genital tract isassociated with a number of diseases, including cervicalcarcinoma. The HPV DNA high risk pool tests for HPV 31, 33,35, 39, 45, 51, 52, 56, 58, 59, 66 and 68. The testing forHPV 16 and 18 genotypes has also been performed. A positiveresult indicates detection of nucleic acid sequences fromone or more subtypes, whereas a negative result indicatessuch sequences were not detected. 12/29/2024 4:01 PM EDT 12/31/2024 10:20 AM EDT us Generic External Data Provider LAB BLOOD ORDERAB LES Final Result [facility] [address] [place] [address] [phone] * Chlamydia/N. Gonorrhoeae RNA, TMA, Urogenitial (12/29/2024 3:19 PM EDT) CT PCR NOT DETECTED Not Detect. [facility] Comment:A not detected test result does not exclude the possibilityof infection because test results can be affected byimproper specimen collection, concurrent antibiotic therapy,or the number of organisms in the specimen which may bebelow the sensitivity of the test. As with many diagnostictests, results from the Xpert CT/NG assay should beinterpreted in conjunction with other laboratory andclinical data available to the clinician.Xpert CT/NG performance has not been evaluated in patientsless than 14 years of age. The assay should not be used forthe evaluationof suspected sexual abuse or for other medico-legalindications. Additional testing is recommended in anycircumstance when false positive or false negative resultscould lead to adverse medical, social or psychologicalconsequences. NG PCR NOT DETECTED Not Detect. [facility] Comment:A not detected test result does not exclude the possibilityof infection because test results can be affected byimproper specimen collection, concurrent antibiotic therapy,or the number of organisms in the specimen which may bebelow the sensitivity of the test. As with many diagnostictests, results from the Xpert CT/NG assay should beinterpreted in conjunction with other laboratory andclinical data available to the clinician.Xpert CT/NG performance has not been evaluated in patientsless than 14 years of age. The assay should not be used forthe evaluationof suspected sexual abuse or for other medico-legalindications. Additional testing is recommended in anycircumstance when false positive or false negative resultscould lead to adverse medical, social or psychologicalconsequences. 12/29/2024 3:19 PM EDT 12/30/2024 3:44 PM EDT us Generic External Data Provider LAB MICROBIOLOGY - GENERAL ORDERABLES Final Result Performing Organization Address [facility] Co de Phone Number [facility] [address] [place] [phone] * Hepatitis C Antibody with Reflex to HCV, RNA, Quantitative, Real-Time PCR (07/09/2024 11:01 AM EDT) Hepatitis C Antibody Nonreactive Nonreactive [facility] Comment:Antibodies to HCV no t detected; does not exclude early acuteHCV infection. Blood Venous blood specimen / Unknown 07/09/2024 11:01 AM EDT 07/09/2024 1:12 PM EDT us Julee Dale MD LAB BLOOD ORDERABLES Final Result Performing Organization Address [facility] Co de Phone Number [facility] [address] [place] [phone] * HIV-1/2 Antigen and Antibodies, Fourth Generation, with Reflexes (07/09/2024 11:01 AM EDT) HIV AB/AG Nonreactive Nonreactive [facility] Comment:HIV-1 p24 Ag and/or HIV-1/HIV-2 Ab not detected.A test result that is nonreactive does not exclude thepossibility of exposure to or infection with HIV-1 and/orHIV-2. Nonreactive results in this assay for individualswith prior exposure to HIV-1 and/or HIV-2 may be due toantigen and antibody levels that are below the limit ofdetection of this assay.The [facility] HIV Ag/Ab Combo assay result andsupplemental assay results should be interpreted inconjunction with the patient's clinical presentation,history and other laboratory results. If the results areinconsistent with clinical evidence, additional testing issuggested to confirm the result. Blood Venous blood specimen / Unknown 07/09/2024 11:01 AM EDT 07/09/2024 1:12 PM EDT us Julee Dale MD LAB BLOOD ORDERABLES Final Result Performing Organization Address [facility] Co de Phone Number [facility] [address] [place] [phone] * Hemoglobin A1c (07/09/2024 11:01 AM EDT) Hemoglobin A1c 5.9 <6.0 % [facility] Comment:Hemoglobin A1C Refer ence Range Adults: 4.8 - 6.0 % Non diabetic: < 6.0 % Goal: < 7.0 %Additional Action Suggested: > 8.0 %Note: Hemoglobin A1c results are invalid for patients with abnormal amounts of HbF. Blood transfusions may impact the HbA1c concentration in the patient sample. Estimated Average Glucose 123 mg/dL [facility] Comment:eAG = Estimated ave rage glucose which is %A1C expressed asaverage glucose, using the formula of the O4Y-LtwbgpmTbxfman Glucose study (ADAG), Diabetes Care, Vol.31,#8,Oct. 2007 Blood Venous blood specimen / Unknown 07/09/2024 11:01 AM EDT 07/09/2024 1:07 PM EDT Julee Dale MD LAB BLOOD ORDERABLES Final Result Performing Organization Address [facility] Co de Phone Number [facility] [address] [place] [phone] * BI Mammogram Screening Tomosynthesis Bilateral (04/02/2024 2:30 PM EST) Anatomical Region Laterality Modality Breast Bilateral Mammography 04/02/2024 2:30 PM EST Narrative 04/11/2024 3:43 PM EST [facility] [address] [place] [address] Mammography Report Signed Patient: Ludmila Cooper MR#: [id number] 6 : 1975 Acct:[id number] Age/Sex: 49 / F ADM Date: 04/02/24 Loc: HO.MAMMO Attending Dr: Julee Dale MD Ordering Physician: Julee Cloud MD Results: 1Negative Date of Service: 04/02/24 Follow Up: 1 Year From Orig inal Mammogram Procedure(s): MM tomosynthesis screening BI Accession Number(s): [id number] cc: Julee Cloud MD EXAMINATION: MM SCREENING [...] 04/11/24 1540 DD/ 1430 TD/TT: 04/02/24 1445 Pre Owned Sales Manager: Procedure Note Donotuseinterpreter, Image - 04/11/2024 [facility] [address] [place], [place] [address] Mammography Report Signed Patient: Ludmila Cooper HMR#: [id number] 6 : 1975Acct:[id number] Age/Sex: 49 / FADM Date: 04/02/24 Loc: HO.MAMMO Attending Dr: Julee Dale MD Ordering Physician: Julee Cloud MDResults: 1Negative Date of Service: 04/02/24Follow Up: 1 Year From Orig inal Mammogram Procedure(s): MM tomosynthesis screening BI Accession Number(s): [id number] cc: Julee Cloud MD EXAMINATION: MM SCREENING [...] by: Shannan Pelaez DO 04/11/2024 03:40 PM [facility] Dictated By: Shannan Pelaez DO Signed By: <Electronically signed by Shannan Pelaez DO in OV> 04/11/24 1540 DD/ 1430 TD/TT: 04/02/24 1445 Pre Owned Sales Manager: Julee Dale MD IMG BI PROCEDURES Ankur kimberly Result - Final from Last 3 Months or Most Recently Relevant to Health Maintenance Insurance [facility] C3 HSN PARTIAL Care Teams Assistant To The Director Relationship Specialty Start Date End Date Julee Cloud MD [address] [place] [address] PCP - General Family Medicine 11/12/17
--- OUTSIDE RECORDS SUMMARY | 2025-01-20 19:08 | XMS_ITS | Encounter Summary ---
Author Organization [employer] Address [address] [facility] [address] [place] [address] Care Team Providers Care Lubrication Servicer Name Role Phone Julee Cloud MD Primary Care Provide r Encounter Details Date Type Department Care Team (Late st Contact Info) Description 10/11/2022 Orders Only [facility] [address] [place] [address] Aislinn Contreras LPN Social History Tobacco Use [...] on filedocumented in this encounter Care Teams Lubrication Servicer Relationship Specialty Start Date End Date Julee Cloud MD [address] [place] [phone] PCP - General Family Medicine 11/12/17 documented as of this encounter
--- OUTSIDE RECORDS SUMMARY | 2025-01-20 19:08 | XMS_ITS | Encounter Summary ---
Author Organization [employer] Address [address] [facility] [address]t h Floor [place] [phone] Care Team Providers Care It Support Engineer Name Role Phone Julee Cloud MD Primary Care Provide r Reason for Visit * Reason Comments Med Refill Encounter Details Date Type Department Care Team ([facility] st Contact Info) Description 04/07/2023 Refill [facility] [address] [place] [address] Julee Cloud MD [address] [place] [phone] Social History Tobacco Use Types Packs/Day Years [...] on filedocumented in this encounter Care Teams It Support Engineer Relationship Specialty Start Date End Date Julee Cloud MD [address] [place] [address] [phone] PCP - General Family Medicine 11/12/17 documented as of this encounter
--- OUTSIDE RECORDS SUMMARY | 2025-01-20 19:08 | XMS_ITS | Encounter Summary ---
Author Organization [employer] Address [address] [place] [address] Care Team Providers Care Relief Driller Name Role Phone Julee Cloud MD Primary Care Provide r Encounter Details Date Type Department Care Team ([facility] st Contact Info) Description 01/20/2025 Orders Only GENERIC EXTERNAL DATA DEPARTMENT Provider, Generic External Data Social History Tobacco Use Types Packs/Day Years [...] your housing situation today? I have yung ylnne 07/08/[address] you li [...] on file documented as of this encounter Procedures Procedure Name Priority Date/Time Associated Diagnosis Comments TSH W/REFLEX TO FT4 Routine 01/20/2025 1 :50 PM EST CBC Routine 01/20/2025 1:50 PM EST HCG, TOTAL, QN Routine 01/20/2025 1:50 PM EST documented in this encounter Results * hCG, Total, Quantitative (01/20/2025 1:50 PM EST) HCG Quantitative <2 mIU/mL [facility] Comment:Weeks post LMP Appro ximate hCG(Last Menstrual Period) Range (mIU/ml)3 - 4 weeks 9 - 1304 - 5 weeks 75 - 2,6005 - 6 weeks 850 - 20,8006 - 7 weeks 4000 - 100,2007 - 12 weeks 11,500 - 289,70789 - 16 weeks 18,300 - 137,27167 - 29 weeks (2nd trimester) 1,400 - 53,89320 - 41 weeks (3rd trimester) 940 - [...] Provider LAB BLOOD ORDERAB LES Final Result [facility] [address] [place] [phone] [phone] * TSH with Reflex to Free T4 (01/20/2025 1:50 PM EST) Pathologist [facility] TSH reflex Free T4 1.42 0.32 - 4.0 uIU/mL [facility] 01/20/2025 1:50 PM EST 01/20/2025 1:50 PM EST us Generic External Data Provider LAB BLOOD ORDERAB LES Final Result [facility] [address] [place] [phone] [phone] * (ABNORMAL) CBC (01/20/2025 1:50 PM EST) Pathologist [facility] White Blood Count 6.6 4.8 - 10.8 X10*3/uL [facility] Red Blood Count 4.18(L) 4.20 - 5.50 X10*6/uL [facility] Hemoglobin 10.2(L) 12.0 - 16.0 g/dl [facility] Hematocrit 33.1(L) 37.0 - 47.0 % [facility] Mean Corpuscular Volume 79.2(L) 80.0 - 98.0 fL [facility] Mean Corpuscular Hemoglobin 24.4(L) 27.0 - 33.0 pg [facility] Mean Corpuscular HGB Conc 30.8(L) 31.0 - 35.0 g/dl [facility] Red Cell Distribution Width 14.9 11.0 - 16.0 % [facility] Platelet Count 230 160 - 400 X10*3/uL [facility] Mean Platelet Volume 10.8 9.4 - 12.3 fL [facility] NRBC Pct Auto 0.0 0.0 - 0.2 /100WBC [facility] NRBC Abs Auto 0.000 0.0 - 0.012 X10*3/uL [facility] 01/20/2025 1:50 PM EST 01/20/2025 1:50 PM EST us Generic External Data Provider LAB BLOOD ORDERAB LES Final Result [facility] [address] [place] [phone] [phone] documented in this encounter Visit Diagnoses Not on filedocumented in this encounter Additional Health Concerns Assessment Noted Time PHQ-9 Depression Total Score: 6 07/09/19 25 11:06 AM EDT documented as of this encounter Care Teams Relief Driller Relationship Specialty Start Date End Date Julee Cloud MD [address] [place] [address] PCP - General Family Medicine 11/12/17 documented as of this encounter
[2025-01-21 03:48] LABS: Follicle Stimulating Hormone 14.2 mIU/mL
== END 2025-01-20 12:55 | disposition home or self-care (01) ==
LOC: HO.LAB 12:54
PROVIDERS: PCP Internal Medicine; Visit Provider Obstetrics & Gynecology
DX: N93.9 Abnormal uterine and vaginal bleeding, unspecified (principal); Z86.2 Personal history of diseases of the blood and blood-forming organs and certain disorders involving the immune mechanism
CPT/HCPCS: 36415; 83001; 83002; 84443; 84702; 85027; 99212

== ENCOUNTER 2025-01-20 12:54 | Outpatient (AMB) | payer MEDICAID, SELFPAY ==
--- NOTE | 2025-01-20 12:58 | MHC.OFFVIS ---
Vital Signs 01/20/25 13:02 Height 4 ft 10 in Weight 118 lb BMI 24.7 BP 150/92 H Intake Visit Reasons: post op Slasher Tender Required: Yes Slasher Tender Language: Manager [employer]: Slasher Tender Present (in person) Slasher Tender Name: Meg LOCO Information Interpreted: non-clinical & clinical Accompanied by: Self / Same As Patient Allergies No Known Allergies Allergy (Verified 01/20/25 13:01) HPI Comments Details: The patient is presenting post hysteroscopy D&C no complaints minimal vaginal bleeding no feverishness chills or abdominal pain. The pathology showed the following: A. Endometrial polyp, resection: Fragments of benign polyp and benign endometrium with focal secretory changes; no atypia or carcinoma. B. Endometrium, curettage: Benign dyssynchronous endometrium with focal secretory changes and focal ectatic vessel with fibrin thrombus; no atypia or carcinoma. Last Co testing was in 12/25 was negative Last mammogram was BI-RADS 1 in 03/27 The patient was seen in the emergency room for low H&H on 09/02/2024 H&H was 6.5/24 and AUB received blood transfusions, last H and H was 11.2/38.2 on 09/15/2024 [facility] Medical History Pre-diabetes Asthma Surgical History No pertinent past surgical history Social History Alcohol intake: never Patient Tobacco Use Status: Never used Tobacco Female Reproductive History Menstrual Age of Menarche: 9 Review of Systems Const All systems reviewed & are unremarkable except as noted in HPI and below Reports as per HPI and Reports no additional complaints GI Reports no additional complaints Reports no additional complaints Physical Exam Vital Signs: Last Vital Signs BP 150/92 H 01/20/25 13:02 BMI result Body Mass Index 24.7 Assessment & Plan Assessment & Plan (1) Abnormal uterine bleeding (AUB): Comment: Endometrial polyp status post hysteroscopic polypectomy History of anemia status post transfusion Code(s): N93.9 - Abnormal uterine and vaginal bleeding, unspecified Category: Medical Plan: CBC, TSH, hCG, FSH/LH ordered Discussed with the patient the results of the work up done and options of treatment including Lysteda, control pills, Mirena IUD, endometrial ablation and hysterectomy. All pros, cons, risks and benefits if each option was discussed with the patient and the patient decided to go ahead with Mirena IUD so a more detailed discussion about it was conducted including mechanism of action, risks (uterine perforation, infection, injury to bladder, bowel, displacement, and others) benefits (hypo menorrhea, amenorrhea, ...). GC/CT were taken and the patient was instructed to schedule Mirena IUD insertion on day 1-5 of next cycle . All questions answered, the patient verbalized understanding Orders: Orders Lutenizing Hormone Today N93.9 - Abnormal uterine and vaginal bleeding, unspecified Complete Blood Count no Diff Today N93.9 - Abnormal uterine and vaginal bleeding, unspecified Follicle Stimulating Hormone Today N93.9 - Abnormal uterine and vaginal bleeding, unspecified TSH reflex Free T4 Today N93.9 - Abnormal uterine and vaginal bleeding, unspecified HCG Quantitative Today N93.9 - Abnormal uterine and vaginal bleeding, unspecified Coding Level of Care Code Est Pt Level 3 (97238) Diagnoses Abnormal uterine bleeding (AUB) N93.9
[2025-01-20 13:02] VITALS: BP 150/92; BMI 24.7
== END 2025-01-20 13:27 | disposition home or self-care (01) ==
LOC: HO.HWS 12:55
PROVIDERS: PCP Internal Medicine; Visit Provider Obstetrics & Gynecology
DX: N93.9 Abnormal uterine and vaginal bleeding, unspecified (principal)
CPT/HCPCS: 99213

== ENCOUNTER 2025-01-21 07:04 | Outpatient (AMB) | payer MEDICAID, SELFPAY ==
--- OUTSIDE RECORDS SUMMARY | 2025-01-21 07:06 | XMS_ITS | Clinical Summary ---
Author Organization [employer] Address [address] [facility] 7t [place] [address] Care Team Providers Care Marketing Co Op Name Role Phone Julee Cloud MD Primary [...] DEPARTMENT Provider, Generic External Data 01/12/[address] [facility] [address] [place] [address] [phone] Julee Cloud MD Appointment Request 01/07/2025 Orders [...] Procedure Name Priority Date/Time Associated Diagnosis Comments LH Routine 01/20/2025 1:50 PM EST FSH Routine 01/20/2025 1:50 PM EST HCG, TOTAL, [...] Free T4 (01/20/2025 1:50 PM EST) Pathologist [facility] TSH reflex Free T4 1.42 0.32 - 4.0 uIU/mL [facility] 01/20/2025 1:50 PM EST 01/20/2025 1:50 PM EST us Generic External Data Provider LAB BLOOD ORDERAB LES Final Result [facility] [address] [place] [address] [phone] * (ABNORMAL) CBC (01/20/2025 1:50 PM EST) Pathologist [facility] White Blood Count 6.6 4.8 - 10.8 X10*3/uL [facility] Red Blood Count 4.18(L) 4.20 - 5.50 X10*6/uL [facility] Hemoglobin 10.2(L) 12.0 - 16.0 g/dl [facility] Hematocrit 33.1(L) 37.0 - 47.0 % [facility] Mean Corpuscular Volume 79.2(L) 80.0 - 98.0 fL [facility] Mean Corpuscular Hemoglobin 24.4(L) 27.0 - 33.0 pg [facility] Mean Corpuscular HGB Conc 30.8(L) 31.0 - 35.0 g/dl [facility] Red Cell Distribution Width 14.9 11.0 - 16.0 % [facility] Platelet Count 230 160 - 400 X10*3/uL [facility] Mean Platelet Volume 10.8 9.4 - 12.3 fL [facility] NRBC Pct Auto 0.0 0.0 - 0.2 /100WBC [facility] NRBC Abs Auto 0.000 0.0 - 0.012 X10*3/uL [facility] 01/20/2025 1:50 PM EST 01/20/2025 1:50 PM EST Generic External Data Provider LAB BLOOD ORDERAB LES Final Result Performing Organization Address [facility] de Phone Number [facility] [address] [place] [phone] * hCG, Total, Quantitative (01/20/2025 1:50 PM EST) HCG Quantitative <2 mIU/mL [facility] Comment:Weeks post LMP Appr oximate hCG(Last Menstrual Period) Range (mIU/ml)3 - 4 weeks 9 - 1304 - 5 weeks 75 - 2,6005 - 6 weeks 850 - 20,8006 - 7 weeks 4000 - 100,2007 - 12 weeks 11,500 - 289,15382 - 16 weeks 18,300 - 137,17958 - 29 weeks (2nd trimester) 1,400 - 53,69008 - 41 weeks (3rd trimester) 940 - 60,000The Odell B- hCG assay is used for the early detection ofpregnancy; it cannot be used to diagnose any conditionunrelated to . If a B-hCG level is not supportedby the clinical evidence, results should be confirmed by analternative method (qualitative urine hCG, for example). 01/20/2025 1:50 PM EST 01/20/2025 1:50 PM EST Generic External Data Provider LAB BLOOD ORDERAB LES Final Result Performing Organization Address [facility] Co de Phone Number [facility] [address] [place] [address] [phone] * LH (01/20/2025 1:50 PM EST) Lutenizing Hormone 9.5 mIU/mL [facility] Comment:Reference Range Foll icular Phase 1.9-12.5 Mid-Cycle Peak 8.7-76.3 Luteal Phase 0.5-16.9 Postmenopausal 10.0-54.7THIS TEST WAS PERFORMED AT:[facility] [address] [id number] BECKFORD MD 01/20/2025 1:50 PM EST 01/20/2025 1:50 PM EST Generic External Data Provider LAB BLOOD ORDERAB LES Final Result Performing Organization Address [facility] de Phone Number [facility] [address] [place] [phone] * FSH (01/20/2025 1:50 PM EST) Follicle Stimulating Hormone 14.2 mIU/mL [facility] Comment:Reference Range Foll icular Phase 2.5-10.2 Mid-cycle Peak 3.1-17.7 Luteal Phase 1.5- 9.1 Postmenopausal 23.0-116.3THIS TEST WAS PERFORMED AT:[facility] [address] [id number] BECKFORD MD 01/20/2025 1:50 PM EST 01/20/2025 1:50 PM EST Generic External Data Provider LAB BLOOD ORDERAB LES Final Result Performing Organization Address [facility] de Phone Number [facility] [address] [place] [phone] * Hematoxylin and Eosin Stain (01/07/2025 11:58 AM EST) 01/07/2025 11:5 8 AM EST 01/07/2025 1:20 PM EST Narrative [facility] - 01/10/2025 1:59 PM EST ----- ------- Name: Ludmila Cooper Age/Sex: 50/F [facility] 1975 [id number]#: [id number] Attend Dr: Nathan Aguilera MD Re01/07/25 Status: [facility] Location: [facility] Disch: ----- ------- SPEC : [id number] RECD: 01/07/25-1319 STATUS: LEO SOMMERS NUM: [id number] CHAPIN: 01/07/25-[address] [facility] [address]: Nathan Aguilera MD ENTERED: 01/07/25 SP TYPE: Surgical OTHR DR: Julee Cloud [...] reviewed. Material Received A. Endometrial polyp [facility] Gross Description A. Received in formalin in a mesh bag, is a 2.5 x 2.0 x 0.3 cm aggregate of almendarez- pink soft tissue fragments, totally submitted in A1. B. Received in formalin is a 2.2 x 1.5 x 0.2 cm aggregate of almendarez-pink soft tissue, totally submitted in B1. (SUNDAR) IHC S/NG Disclaimer NOTE: Unless otherwise stated, all tissue is formalin-fixed and paraffin-embedded. Some or all of the immunohistochemical tests reported herein may have been developed and their performance characteristics determined by [facility]. They have not been cleared or approved by the U.S. Food and Drug Administration (FDA). However, the FDA has determined that such clearance or approval is not necessary. This laboratory is certified under the Clinical Laboratory Improvement Amendments of 1988 (CLIA) as qualified to perform high complexity clinical laboratory testing. CONTINUED ON NEXT PAGE ----- ------- Name: Ludmila Cooper Age/Sex: 50/F : 1975 Unit#: [id number] Attend Dr: Nathan Aguilera MD Re01/07/25 Status: [facility] Location: [facility] Disch: ----- ------- SPEC : [id number] RECD: 01/07/25 STATUS: LEO SOMMERS NUM: [id number] CHAPIN: 01/07/25-[address] [facility] [address]: Nathan Aguilera MD ENTERED: 01/07/257211 SP TYPE: Surgical OTHR DR: Julee Cloud MD ORDERED: HE Stain/4, Gross Micro L4/2 Copies To: Julee Cloud MD [address] [address] Nathan Aguilera MD [facility] [address] [place] [address] Drive [address] [place] [phone] ----- ------- Signed (signature on file) Le Ahmeek 01/10/25 1359 ----- ------- END OF REPORT Generic External Data Provider LAB BLOOD ORDERAB LES Final Result Performing Organization Address [facility] de Phone Number [facility] [address] [place] [phone] * HCG, Qualitative, Urine (01/07/2025 9:21 AM EST) Urine NEGATIVE NEGATIVE [facility] Comment:This test was develo ped to detect early . Falsenegative results may occur after the 5th - 7th week ofpregnancy when using this test method. If clinicallyindicated, consider a serum hCG. 01/07/2025 9:21 AM EST 01/07/2025 9:47 AM EST [employer] External Data Provider LAB URINE ORDERAB LES Final Result Performing Organization Address [facility] de Phone Number [facility] [address] [place] [phone] * Pap Smear (12/30/2024 4:01 PM EDT) 12/30/2024 4:01 PM EDT 12/31/2024 9:09 AM EDT Narrative [facility] - 01/07/2025 3:04 PM EST ----- ------- Name: Ludmila Cooper Age/Sex: 49/F : 1975 Unit#: [id number] Attend Dr: Nathan Aguilera MD Re12/29/24 Status: DEP REF Location: [facility] Disch: ----- ------- SPEC : [id number] RECD: 12/31/24 STATUS: LEO SOMMERS NUM: [id number] CHAPIN: 12/30/[address] [facility] [address]: Nathan Aguilera MD ENTERED: 12/31/24 SP [...] and HPV testing will be performed at [facility] (CLIA #[id number]), [address] [place] [address]. Testing for HPV was performed using the Miguel DAYRON 6800 system. The presence of HPV in the [...] detected. All professional services are performed by [facility] ([address] [place] [address]; ; CLIA #[id number]). The PAP Test is a screening procedure with the inherent possibility of both false negative and false positive results. Results should be interpreted in the context of historic and current clinical findings. Reliability of the PAP Test is enhanced by performing the test on a regular repetitive basis. CONTINUED ON NEXT PAGE ----- ------- Name: Ludmila Cooper Age/Sex: 49/F : 1975 Unit#: [id number] Attend Dr: Nathan Aguilera MD Re12/29/24 Status: DEP REF Location: [facility] Disch: ----- ------- SPEC : [id number] RECD: 12/31/24 STATUS: LEO SOMMERS NUM: [id number] CHAPIN: 12/30/[address] [facility] [address]: Nathan Aguilera MD ENTERED: 12/31/24 SP TYPE: Pap Smr [facility] DR: Julee Cloud MD ORDERED: Pap Smear Copies To: Julee Cloud MD [facility] [address] [place] [address] Nathan Aguilera MD [facility] [address] [place] [address] ----- ------- Signed (signature on file) EDWARD Hiar (ASCP) 01/07/25 1504 ----- ------- END OF REPORT us Generic External Data Provider LAB CYTOLOGY VALARIE RIVERS Final Result [facility] [address] [place] [phone] * HPV DNA, Low/High Risk (12/29/2024 4:01 PM EDT) HPV High Risk Negative Negative [facility] HPV Genotype 16 Negative Negative [facility] HPV Genotype 18 Negative Negative [facility] Comment:HPV testing performe d at [facility] (CLIA#[id number]), [address] [place] [address].Testing for HPV was performed using the Miguel DAYRON Seriosity0system. The presence of HPV in the female [...] Provider LAB BLOOD ORDERAB LES Final Result [facility] [address] [place] [phone] * Chlamydia/N. Gonorrhoeae RNA, TMA, Urogenitial (12/29/2024 3:19 PM EDT) CT PCR NOT DETECTED Not Detect. [facility] Comment:A not detected test result does [...] psychologicalconsequences. NG PCR NOT DETECTED Not Detect. [facility] Comment:A not detected test result does [...] GENERAL ORDERABLES Final Result Performing Organization Address [facility] Co de Phone Number [facility] [address] [place] [phone] * Hepatitis C Antibody with Reflex to HCV, RNA, Quantitative, Real-Time PCR (07/09/2024 11:01 AM EDT) Hepatitis C Antibody Nonreactive Nonreactive [facility] Comment:Antibodies to HCV no t detected; does not exclude early acuteHCV infection. Blood Venous blood specimen / Unknown 07/09/2024 11:01 AM EDT 07/09/2024 1:12 PM EDT us Julee Dale MD LAB BLOOD ORDERABLES Final Result Performing Organization Address [facility] Co de Phone Number [facility] [address] [place] [phone] * HIV-1/2 Antigen and Antibodies, Fourth Generation, with Reflexes (07/09/2024 11:01 AM EDT) HIV AB/AG Nonreactive Nonreactive [facility] Comment:HIV-1 p24 Ag and/or HIV-1/HIV-2 Ab not detected.A test result that is nonreactive does not exclude thepossibility of exposure to or infection with HIV-1 and/orHIV-2. Nonreactive results in this assay for individualswith prior exposure to HIV-1 and/or HIV-2 may be due toantigen and antibody levels that are below the limit ofdetection of this assay.The ubitusniLearnShark HIV Ag/Ab Combo assay result andsupplemental assay results should be interpreted inconjunction with the patient's clinical presentation,history and other laboratory results. If the results areinconsistent with clinical evidence, additional testing issuggested to confirm the result. Blood Venous blood specimen / Unknown 07/09/2024 11:01 AM EDT 07/09/2024 1:12 PM EDT us Julee Dale MD LAB BLOOD ORDERABLES Final Result Performing Organization Address [facility] Co de Phone Number [facility] [address] [place] [phone] * Hemoglobin A1c (07/09/2024 11:01 AM EDT) Hemoglobin A1c 5.9 <6.0 % [facility] Comment:Hemoglobin A1C Refer ence Range Adults: 4.8 - 6.0 % Non diabetic: < 6.0 % Goal: < 7.0 %Additional Action Suggested: > 8.0 %Note: Hemoglobin A1c results are invalid for patients with abnormal amounts of HbF. Blood transfusions may impact the HbA1c concentration in the patient sample. Estimated Average Glucose 123 mg/dL [facility] Comment:eAG = Estimated ave rage glucose which is %A1C expressed asaverage glucose, using the formula of the M5I-IqhfdcxMlwckms Glucose study (ADAG), Diabetes Care, Vol.31,#8,Oct. 2007 Blood Venous blood specimen / Unknown 07/09/2024 11:01 AM EDT 07/09/2024 1:07 PM EDT us Julee Dale MD LAB BLOOD ORDERABLES Final Result Performing Organization Address [facility] Co de Phone Number [facility] [address] [place] [phone] * BI Mammogram Screening Tomosynthesis Bilateral (04/02/2024 2:30 PM EST) Anatomical Region Laterality Modality Breast Bilateral Mammography 04/02/2024 2:30 PM EST Narrative 04/11/2024 3:43 PM EST [facility] [address] [place] [address] Mammography Report Signed Patient: Ludmila Cooper MR#: [id number] 6 : 1975 Acct:[id number] Age/Sex: 49 / F ADM Date: 04/02/24 Loc: HO.MAMMO Attending Dr: Julee Dale MD Ordering Physician: Julee Cloud MD Results: 1Negative Date of Service: 04/02/24 Follow Up: 1 Year From Orig inal Mammogram Procedure(s): MM tomosynthesis screening BI Accession Number(s): [id number] cc: Julee Cloud MD EXAMINATION: MM SCREENING [...] 04/11/24 1540 DD/ 1430 TD/TT: 04/02/24 1445 Hospice Art Therapist: Procedure Note Donotuseinterpreter, Image - 04/11/2024 [facility] [address] [place] [address] Dr. Guzman, CARRIE [address] Mammography Report Signed Patient: Ludmila Cooper HMR#: [id number] 6 : 1975Acct:[id number] Age/Sex: 49 / FADM Date: 04/02/24 Loc: HO.MAMMO Attending Dr: Julee Dale MD Ordering Physician: Julee Cloud MDResults: 1Negative Date of Service: 04/02/24Follow Up: 1 Year From Orig inal Mammogram Procedure(s): MM tomosynthesis screening BI Accession Number(s): [id number] cc: Julee Cloud MD EXAMINATION: MM SCREENING [...] by: Shannan Pelaez DO 04/11/2024 03:40 PM [facility] Dictated By: Shannan Pelaez DO Signed By: <Electronically signed by Shannan Pelaez DO in OV> 04/11/24 1540 DD/ 1430 TD/TT: 04/02/24 1445 Hospice Art Therapist: Julee Dale MD IMG BI PROCEDURES Ankur kimberly Result - Final from Last 3 Months or Most Recently Relevant to Health Maintenance Insurance [facility] C3 HSN PARTIAL Care Teams Marketing Co Op Relationship Specialty Start Date End Date Julee Cloud MD [address] [place] [address] PCP - General Family Medicine 11/12/17
--- OUTSIDE RECORDS SUMMARY | 2025-01-21 07:06 | XMS_ITS | Encounter Summary ---
Author Organization [employer] Address [address] [facility] [address]t h Floor [place] [phone] Care Team Providers Care Superintendent Service Name Role Phone Julee Cloud MD Primary Care Provide r Reason for Visit * Reason Comments Med Refill Encounter Details Date Type Department Care Team ([facility] st Contact Info) Description 04/07/2023 Refill [facility] [address] [place] [address] Julee Cloud MD [address] [place] [phone] Social History Tobacco Use Types Packs/Day Years [...] on filedocumented in this encounter Care Teams Superintendent Service Relationship Specialty Start Date End Date Julee Cloud MD [address] [place] [address] [phone] PCP - General Family Medicine 11/12/17 documented as of this encounter
--- OUTSIDE RECORDS SUMMARY | 2025-01-21 07:06 | XMS_ITS | Encounter Summary ---
Author Organization [employer] Address [address] [facility] [address]t h Floor [place] [phone] Care Team Providers Care Blueprinting And Photocopy Supervisor Name Role Phone Julee Cloud MD Primary Care Provide r Reason for Visit * Reason Comments Med Refill Encounter Details Date Type Department Care Team ([facility] st Contact Info) Description 04/30/2023 Refill [facility] [address] [place] [address] Julee Cloud MD [address] [place] [phone] Social History Tobacco Use Types Packs/Day Years [...] on filedocumented in this encounter Care Teams Blueprinting And Photocopy Supervisor Relationship Specialty Start Date End Date Julee Cloud MD [address] [place] [address] [phone] PCP - General Family Medicine 11/12/17 documented as of this encounter
--- OUTSIDE RECORDS SUMMARY | 2025-01-21 07:06 | XMS_ITS | Encounter Summary ---
Author Organization [employer] Address [address] [facility] [address] [place] [address] Care Team Providers Care Information Management Manager Name Role Phone Julee Cloud MD Primary Care Provide r Encounter Details Date Type Department Care Team (Late st Contact Info) Description 10/11/2022 Orders Only [facility] [address] [place] [address] Aislinn Contreras LPN Social History Tobacco Use [...] on filedocumented in this encounter Care Teams Information Management Manager Relationship Specialty Start Date End Date Julee Cloud MD [address] [place] [phone] PCP - General Family Medicine 11/12/17 documented as of this encounter
--- OUTSIDE RECORDS SUMMARY | 2025-01-21 07:06 | XMS_ITS | Encounter Summary ---
Author Organization [employer] Address [address] [facility] [address] [place] [address] Care Team Providers Care Line Installer Name Role Phone Julee Cloud MD Primary Care Provide r Encounter Details Date Type Department Care Team (Late st Contact Info) Description 12/11/2022 Orders Only [facility] [address] [place], [place] [phone] Yajaira Saavedra LPN Social History Tobacco Use [...] on filedocumented in this encounter Care Teams Line Installer Relationship Specialty Start Date End Date Julee Cloud MD [address] [place] [address] PCP - General Family Medicine 11/12/17 documented as of this encounter
--- OUTSIDE RECORDS SUMMARY | 2025-01-21 07:06 | XMS_ITS | Encounter Summary ---
Author Organization [employer] Address [address] [facility] [address] [place] [address] Care Team Providers Care Diesel Engine Fitter Name Role Phone Julee Cloud MD Primary Care Provide r Encounter Details Date Type Department Care Team ([facility] st Contact Info) Description 01/20/2025 Orders Only [...] TOTAL, QN Routine 01/20/2025 1:50 PM EST LH Routine 01/20/2025 1:50 PM EST FSH Routine 01/20/2025 1:50 PM EST documented in this encounter Results * LH (01/20/2025 1:50 PM EST) Lutenizing Hormone 9.5 mIU/mL [facility] Comment:Reference Range Foll icular Phase 1.9-12.5 Mid-Cycle Peak 8.7-76.3 Luteal Phase 0.5-16.9 Postmenopausal 10.0-54.7THIS TEST WAS PERFORMED AT:[employer] [place] [id number] BECKFORD MD 01/20/2025 1:50 PM EST 01/20/2025 1:50 PM EST us Generic External Data Provider LAB BLOOD ORDERAB LES Final Result [facility] [address] [place] [phone] * FSH (01/20/2025 1:50 PM EST) Follicle Stimulating Hormone 14.2 mIU/mL [facility] Comment:Reference Range Foll icular Phase 2.5-10.2 Mid-cycle Peak 3.1-17.7 Luteal Phase 1.5- 9.1 Postmenopausal 23.0-116.3THIS TEST WAS PERFORMED AT:[employer] [place] [phone] BECKFORD MD 01/20/2025 1:50 PM EST 01/20/2025 1:50 PM EST Generic External Data Provider LAB BLOOD ORDERAB LES Final Result Performing Organization Address [facility] Co de Phone Number [facility] [address] [place] [phone] * hCG, Total, Quantitative (01/20/2025 1:50 PM EST) Pathologist [facility] HCG Quantitative <2 mIU/mL [facility] Comment:Weeks post LMP Appro ximate hCG(Last Menstrual Period) Range (mIU/ml)3 - 4 weeks 9 - 1304 - 5 weeks 75 - 2,6005 - 6 weeks 850 - 20,8006 - 7 weeks 4000 - 100,2007 - 12 weeks 11,500 - 289,88120 - 16 weeks 18,300 - 137,50168 - 29 weeks (2nd trimester) 1,400 - 53,49653 - 41 weeks (3rd trimester) 940 - [...] ORDERAB LES Final Result Performing Organization Address [facility]/ZIP Co de Phone Number [facility] [address] [place] [phone] * TSH with Reflex to Free T4 (01/20/2025 1:50 PM EST) TSH reflex Free T4 1.42 0.32 - 4.0 uIU/mL [facility] 01/20/2025 1:50 PM EST 01/20/2025 1:50 PM EST us Generic External Data Provider LAB BLOOD ORDERAB LES Final Result [facility] [address] [place] [phone] * (ABNORMAL) CBC (01/20/2025 1:50 PM EST) White Blood Count 6.6 4.8 - 10.8 X10*3/uL [facility] Red Blood Count 4.18(L) 4.20 - 5.50 X10*6/uL [facility] Hemoglobin 10.2(L) 12.0 - 16.0 g/dl [facility] Hematocrit 33.1(L) 37.0 - 47.0 % [facility] Mean Corpuscular Volume 79.2(L) 80.0 - 98.0 fL [facility] Mean Corpuscular Hemoglobin 24.4(L) 27.0 - 33.0 pg [facility] Mean Corpuscular HGB Conc 30.8(L) 31.0 - 35.0 g/dl [facility] Red Cell Distribution Width 14.9 11.0 - 16.0 % [facility] Platelet Count 230 160 - 400 X10*3/uL [facility] Mean Platelet Volume 10.8 9.4 - 12.3 fL [facility] NRBC Pct Auto 0.0 0.0 - 0.2 /100WBC [facility] NRBC Abs Auto 0.000 0.0 - 0.012 X10*3/uL [facility] 01/20/2025 1:50 PM EST 01/20/2025 1:50 PM EST us Generic External Data Provider LAB BLOOD ORDERAB LES Final Result [facility] [address] [place] [phone] documented in this encounter Visit Diagnoses Not on filedocumented in this encounter Additional Health Concerns Assessment Noted Time PHQ-9 Depression Total Score: 6 07/09/19 25 11:06 AM EDT documented as of this encounter Care Teams Diesel Engine Fitter Relationship Specialty Start Date End Date Julee Cloud MD [address] [place] [phone] PCP - General Family Medicine 11/12/17 documented as of this encounter
--- NOTE | 2025-01-21 07:16 | MHC.OFFVIS ---
Vital Signs 01/21/25 07:31 Height 4 ft 10 in Weight 118 lb BMI 24.7 BP 114/66 Intake Visit Reasons: Mirena insertion Bowling Alley Operator Required: Yes Bowling Alley Operator Language: Open Hearth Helper Services: Bowling Alley Operator Present (in person) Bowling Alley Operator Name: Meg LOCO Information Interpreted: non-clinical & clinical Shrimp Peeling Machine Operator: Shrimp Peeling Machine Operator Present (Meg LOCO) Accompanied by: Self / Same As Patient Allergies No Known Allergies Allergy (Verified 01/21/25 07:32) Is last menstrual period known: Yes Last menstrual period: 01/16/25 HPI Comments Details: Presenting for Mirena IUD insertion LMP 5 days ago H&H done on 01/20 10.2/33.1 dropped from 11.2/38.3 on 09/15/24 PFS Medical History Pre-diabetes Asthma Surgical History No pertinent past surgical history Social History Alcohol intake: never Patient Tobacco Use Status: Never used Tobacco Female Reproductive History Menstrual Age of Menarche: 9 Date of last menstrual period: 01/16/25 Review of Systems Const All systems reviewed & are unremarkable except as noted in HPI and below Physical Exam Vital Signs: Last Vital Signs BP 114/66 01/21/25 07:31 BMI result Body Mass Index 24.7 General: Yes no CVA tenderness External Female Exam: normal external appearance and normal appearance of the urethra Speculum Exam - Vagina: normal appearance of the vagina, normal palpation, no lesions and no masses Speculum Exam - Cervix: normal appearance of the cervix, normal palpation, no lesions, no masses and nontender Bimanual exam- vagina & uterus: normal bimanual exam, normal palpation, uterine size normal, normal palpation, uterine shape normal, No Cervical tenderness present and non-tender Bimanual Exam- Adnexa, other: normal adnexae Back/Spine/Pelvis Back: no CVA tenderness Office Procedures IUD Insert/Removal Details Details: The patient is presenting for Mirena IUD insertion Urine test was done in the office and was negative; All the contraindications were excluded. The following possible complications were discussed with the patient: Intrauterine , Ectopic , Sepsis, Pelvic Infection, Irregular Bleeding and Amenorrhea, Perforation, Expulsion, Ovarian Cysts, Breast Cancer, The following adverse effects were discussed with the patient: alteration of menstrual bleeding pattern, including: unscheduled uterine bleeding decreased uterine bleeding increased scheduled uterine bleeding female genital tract bleeding ,amenorrhea , genital discharge , vulvovaginitis , breast pain , benign ovarian cyst and associated complications , dysmenorrhea , Gastrointestinal disorders abdominal/pelvic pain, headache/migraine , back pain , acne , depression Alternative options were discussed with the patient including but not limited: control pills, patch, NuvaRing, Depo-medroxyprogesterone acetate, Nexplanon, copper IUD, sterilization, vasectomy, others The procedure was explained in detail to patient , at the end patient signed the informed consent obtained. A no touch technique was used throughout the procedure. A speculum was placed into vagina and cervix was cleaned with betadine). A tenaculum was placed. A plastic sound was advanced through the external and internal os until it reached the fundus of the uterus, the depth was 8 cm. The sound was then withdrawn. The IUD was loaded in a sterile manner and advanced into position. The string was visualized and cut to 3 cm. Tenaculum site hemostatic. All instruments removed from vagina. Patient tolerated the procedure well. NO complications were noted. Patient was instructed to call for fever over 100.4, significant pain unrelieved by Motrin, IUD expulsion, heavy bleeding, or abnormal discharge. In addition, the following clinical considerations were discussed with the patient to call for removal: A stroke or heart attack ,Very severe or migraine headaches ,Unexplained fever ,Yellowing of the skin or whites of the eyes, as these may be signs of serious liver problems , or suspected , Pelvic pain or pain during sex ,HIV positive seroconversion in herself or her partner , Possible exposure to sexually transmitted infections Unusual vaginal discharge or genital sores , severe vaginal bleeding or bleeding that lasts a long time, or if she misses a menstrual period, Inability to feel Mirena's threads Counseled the patient that the IUD does not protect against STI's, recommended use of condoms for the first 7 days post insertion and explained to the patient that condoms are recommended for patients at risk for sexually transmitted infections. Informed the patient that Mirena IUD is FDA approved for 8 years for contraception for 5 years for the treatment of heavy menses Instructed the patient to schedule a Follow up appointment in 4 to 6 weeks following insertion. This note was generated with a voice recognition program. Some errors may have been overlooked during the review of this note. Sometimes these errors may affect the content or meaning of a given sentence. [id number] Insertion Procedure code (CPT) selection complete Office Meds Mirena 21 mcg/24 hr (up to 8 years) 52 mg intrauterine device Performing Provider: Nathan Aguilera MD Performing Location: [facility] Documented (not given) by: Nathan Aguilera MD on 01/21/25 07:43 Dose Route Admin Location Dispensed Lot Number Expiration Date NDC Process Manufacturing Engineer 1 device intrauterine ea Total Dispensed Waste n/a n/a Results AMB Test Urine AMB Test Urine Negative Last Edit by Meg Boyd CMA on 01/21/25 07:34 Assessment & Plan Assessment & Plan (1) Abnormal uterine bleeding (AUB): Comment: Endometrial polyp status post hysteroscopic polypectomy History of anemia status post transfusion Code(s): N93.9 - Abnormal uterine and vaginal bleeding, unspecified Category: Medical Plan: Iron sulfate 325 mg p.o. b.i.d., will repeat CBC in three-month. Mirena IUD inserted, see procedure note. Instructions given the patient to call or go to emergency room in case of heavy vaginal bleeding, pelvic pain, fever above 100.4. All questions answered, the patient verbalized understanding Orders: Orders AMB IUD Insertion/Removal - Practice Supplied Today N93.9 - Abnormal uterine and vaginal bleeding, unspecified Complete Blood Count no Diff 3 Months N93.9 - Abnormal uterine and vaginal bleeding, unspecified AMB HCG Urine Test Today Z32.02 - Encounter for test, result negative Medications: New Mirena (levonorgestrel) 1 device intrauterine ONCE 1 ea 0RF NS N93.9 - Abnormal uterine and vaginal bleeding, unspecified Coding Level of Care Code Est Pt Level 3 (06628) Procedure Only Diagnoses Abnormal uterine bleeding (AUB) N93.9 CPT Codes Details - CPT: 58415-TJW Insertion ([id number])
[2025-01-21 07:31] VITALS: BP 114/66; BMI 24.7
== END 2025-01-21 07:46 | disposition home or self-care (01) ==
LOC: HO.HWS 07:04
PROVIDERS: PCP Internal Medicine; Visit Provider Obstetrics & Gynecology
DX: Z30.430 Encounter for insertion of intrauterine contraceptive device (principal); N93.9 Abnormal uterine and vaginal bleeding, unspecified; Z32.02 Encounter for pregnancy test, result negative
CPT/HCPCS: 58300; 99213

== ENCOUNTER → 2025-01-21 07:04 | Outpatient (BNVA) | payer MEDICAID, SELFPAY | PROVIDERS: PCP Internal Medicine; Visit Provider Obstetrics & Gynecology | DX: Z30.430 Encounter for insertion of intrauterine contraceptive device (principal); N93.9 Abnormal uterine and vaginal bleeding, unspecified; Z87.42 Personal history of other diseases of the female genital tract; Z32.02 Encounter for pregnancy test, result negative | CPT/HCPCS: 58300; 81025; 99212; J7298 ==

== ENCOUNTER 2025-03-02 07:42 | Outpatient (AMB) | payer MEDICAID, SELFPAY ==
--- OUTSIDE RECORDS SUMMARY | 2025-03-02 07:45 | XMS_ITS | Encounter Summary ---
Author Organization [employer] Address [address] [facility] [address] [place] [phone] Care Team Providers Care Supplier Quality Engineering Manager Name Role Phone Julee Cloud MD Primary Care Provide r Reason for Visit * Reason Comments Med Refill Encounter Details Date Type Department Care Team ([facility] st Contact Info) Description 04/30/2023 Refill [facility] [address] [place] [address] Julee Cloud MD [address] [place] [address] [phone] Social History Tobacco Use Types Packs/Day Years [...] on filedocumented in this encounter Care Teams Supplier Quality Engineering Manager Relationship Specialty Start Date End Date Julee Cloud MD [address] [place] [address] [phone] PCP - General Family Medicine 11/12/17 documented as of this encounter
--- OUTSIDE RECORDS SUMMARY | 2025-03-02 07:45 | XMS_ITS | Encounter Summary ---
Author Organization [employer] Address [address] [facility] [address] [place] [address] Care Team Providers Care Lamp Wirer Name Role Phone Julee Cloud MD Primary Care Provide r Encounter Details Date Type Department Care Team (Late st Contact Info) Description 12/11/2022 Orders Only [facility] [address] [place], [place] [phone] Yajaira Saavedra LPN Social History Tobacco Use [...] on filedocumented in this encounter Care Teams Lamp Wirer Relationship Specialty Start Date End Date Julee Cloud MD [address] [place] [address] PCP - General Family Medicine 11/12/17 documented as of this encounter
--- OUTSIDE RECORDS SUMMARY | 2025-03-02 07:45 | XMS_ITS | Encounter Summary ---
Author Organization [employer] Address [address] [facility] [address] [place] [address] Care Team Providers Care Hole Puncher Strap Name Role Phone Julee Cloud MD Primary Care Provide r Encounter Details Date Type Department Care Team (Late st Contact Info) Description 10/11/2022 Orders Only [facility] PEDS [address] [place] [address] Aislinn Contreras LPN Social History Tobacco Use [...] on filedocumented in this encounter Care Teams Hole Puncher Strap Relationship Specialty Start Date End Date Julee Cloud MD [address] [place] [phone] PCP - General Family Medicine 11/12/17 documented as of this encounter
--- OUTSIDE RECORDS SUMMARY | 2025-03-02 07:45 | XMS_ITS | Clinical Summary ---
Author Organization [employer] Address [address] [facility] 7t [place] [address] Care Team Providers Care Charge Out Clerk Name Role Phone Julee Cloud MD Primary [...] DEPARTMENT Provider, Generic External Data 01/12/2025 Telephone [facility] [address] [place] [address] [phone] Julee Cloud MD Appointment Request 01/07/2025 Orders [...] Free T4 (01/20/2025 1:50 PM EST) Pathologist [facility] [place] TSH reflex Free T4 1.42 0.32 - 4.0 uIU/mL [facility] 01/20/2025 1:50 PM EST 01/20/2025 1:50 PM EST us Generic External Data Provider LAB BLOOD ORDERAB LES Final Result [facility] [address] [place] [address] [phone] * (ABNORMAL) CBC (01/20/2025 1:50 PM EST) Pathologist [facility] [place] White Blood Count 6.6 4.8 - 10.8 X10*3/uL [facility] Red Blood Count 4.18(L) 4.20 - 5.50 X10*6/uL [facility] Hemoglobin 10.2(L) 12.0 - 16.0 g/dl [facility] Hematocrit 33.1(L) 37.0 - 47.0 % [facility] Mean Corpuscular Volume 79.2(L) 80.0 - 98.0 fL [facility] Mean Corpuscular Hemoglobin 24.4(L) 27.0 - 33.0 pg [facility] Mean Corpuscular HGB Conc 30.8(L) 31.0 - 35.0 g/dl [facility] Red Cell Distribution Width 14.9 11.0 - 16.0 % [facility] Platelet Count 230 160 - 400 X10*3/uL [facility] Mean Platelet Volume 10.8 9.4 - 12.3 fL [facility] NRBC Pct Auto 0.0 0.0 - 0.2 /100WBC [facility] NRBC Abs Auto 0.000 0.0 - 0.012 X10*3/uL [facility] 01/20/2025 1:50 PM EST 01/20/2025 1:50 PM EST Generic External Data Provider LAB BLOOD ORDERAB LES Final Result Performing Organization Address [facility] de Phone Number [facility] [address] [place] [address] [phone] * hCG, Total, Quantitative (01/20/2025 1:50 PM EST) HCG Quantitative <2 mIU/mL [facility] Comment:Weeks post LMP Appro ximate hCG(Last Menstrual Period) Range (mIU/ml)3 - 4 weeks 9 - 1304 - 5 weeks 75 - 2,6005 - 6 weeks 850 - 20,8006 - 7 weeks 4000 - 100,2007 - 12 weeks 11,500 - 289,71531 - 16 weeks 18,300 - 137,61810 - 29 weeks (2nd trimester) 1,400 - 53,21786 - 41 weeks (3rd trimester) 940 - [...] ORDERAB LES Final Result Performing Organization Address [facility] Co de Phone Number [facility] [address] [place] [address] [phone] * LH (01/20/2025 1:50 PM EST) Lutenizing Hormone 9.5 mIU/mL [facility] Comment:Reference Range Foll icular Phase 1.9-12.5 Mid-Cycle Peak 8.7-76.3 Luteal Phase 0.5-16.9 Postmenopausal 10.0-54.7THIS TEST WAS PERFORMED AT:[facility] [address] [id number] BECKFORD MD 01/20/2025 1:50 PM EST 01/20/2025 1:50 PM EST Generic External Data Provider LAB BLOOD ORDERAB LES Final Result Performing Organization Address [facility] de Phone Number [facility] [address] [place] [phone] * FSH (01/20/2025 1:50 PM EST) Follicle Stimulating Hormone 14.2 mIU/mL [facility] Comment:Reference Range Foll icular Phase 2.5-10.2 Mid-cycle Peak 3.1-17.7 Luteal Phase 1.5- 9.1 Postmenopausal 23.0-116.3THIS TEST WAS PERFORMED AT:[facility] [address] [id number] BECKFORD MD 01/20/2025 1:50 PM EST 01/20/2025 1:50 PM EST Generic External Data Provider LAB BLOOD ORDERAB LES Final Result Performing Organization Address [facility] de Phone Number [facility] [address] [place] [phone] * Hematoxylin and Eosin Stain (01/07/2025 11:58 AM EST) 01/07/2025 11:5 8 AM EST 01/07/2025 1:20 PM EST Narrative [facility] - 01/10/2025 1:59 PM EST ----- ------- Name: Ludmila Cooper Age/Sex: 50/F : 1975 [facility]#: [id number] Unit#: [id number] Attend Dr: Nathan Aguilera MD Re01/07/25 Status: [facility] Location: [facility] Disch: ----- ------- SPEC : [id number] RECD: 01/07/25-1319 STATUS: ROSEMARYMee SOMMERS NUM: [id number] [place]AP[place]: 01/07/25-[address] [facility] [address]: Nathan Aguilera MD ENTERED: 01/07/25 [...] reviewed. Material Received A. Endometrial polyp [facility] Gross Description A. Received in formalin in [...] developed and their performance characteristics determined by [facility]. They have not been [...] Ludmila Cooper Age/Sex: 50/F : 1975 Unit#: [id number] Attend Dr: Nathan Aguilera MD Re01/07/25 Status: [facility] Location: .[facility] Disch: ----- ------- SPEC : [id number] RECD: 01/07/25 STATUS: LEO SOMMERS NUM: [id number] [place]AP[place]: 01/07/25-[address] [facility] [address]: Nathan Aguilera MD ENTERED: 01/07/252515 SP TYPE: Surgical OTHR DR: Julee Cloud MD ORDERED: HE Stain/4, Gross Micro L4/2 Copies To: Julee Cloud MD [address] [address] Nathan Aguilera MD [facility] Women's Services [address] [place] [address] Drive [address] [place] [phone] ----- ------- Signed (signature on file) [place] 01/10/25 1359 ----- ------- END OF REPORT Generic External Data Provider LAB BLOOD ORDERAB LES Final Result Performing Organization Address [facility] de Phone Number [facility] [address] [place] [phone] * HCG, Qualitative, Urine (01/07/2025 9:21 AM EST) Urine NEGATIVE NEGATIVE [facility] Comment:This test was develo ped to detect early . Falsenegative results may occur after the 5th - 7th week ofpregnancy when using this test method. If clinicallyindicated, consider a serum hCG. 01/07/2025 9:21 AM EST 01/07/2025 9:47 AM EST Generic External Data Provider LAB URINE ORDERAB LES Final Result Performing Organization Address [facility] de Phone Number [facility] [address] [place] [phone] * Pap Smear (12/30/2024 4:01 PM EDT) 12/30/2024 4:01 PM EDT 12/31/2024 9:09 AM EDT Narrative [facility] - 01/07/2025 3:04 PM EST ----- ------- Name: Ludmila Cooper Age/Sex: 49/F : 1975 Unit#: [id number] Attend Dr: Nathan Aguilera MD Re12/29/24 Status: DEP REF Location: [facility] Disch: ----- ------- SPEC : [id number] RECD: 12/31/24 STATUS: LEO SOMMERS NUM: [id number] CHAPIN: 12/30/[address] [facility] [address]: Nathan Aguilera MD ENTERED: 12/31/24 [...] and HPV testing will be performed at [facility] (CLIA #[id number]), [address] [place] [address]. Testing for HPV was performed using the [...] detected. All professional services are performed by [facility] ([address] [place] [address]; ; CLIA #[id number]). The PAP Test is a screening procedure with the inherent possibility of both false negative and false positive results. Results should be interpreted in the context of historic and current clinical findings. Reliability of the PAP Test is enhanced by performing the test on a regular repetitive basis. CONTINUED ON NEXT PAGE ----- ------- Name: Ludmila Cooper Age/Sex: 49/F : 1975 Unit#: [id number] Attend Dr: Nathan Aguilera MD Re12/29/24 Status: DEP REF Location: [facility] Disch: ----- ------- SPEC : [id number] RECD: 12/31/24 STATUS: LEO SOMMERS NUM: [id number] CHAPIN: 12/30/[address] [facility] [address]: Nathan Aguilera MD ENTERED: 12/31/24 SP TYPE: Pap Smr [facility] DR: Julee Cloud MD ORDERED: Pap Smear Copies To: Julee Cloud MD [facility] [address] [place] [address] Nathan Aguilera MD [facility] Women's Services [address] [place] [address] ----- ------- Signed (signature on file) EDWARD Hair (ASCP) 01/07/25 1504 ----- ------- END OF REPORT us Generic External Data Provider LAB CYTOLOGY VALARIE RIVERS Final Result [facility] [address] [place] [address] [phone] * HPV DNA, Low/High Risk (12/29/2024 4:01 PM EDT) HPV High Risk Negative Negative [facility] HPV Genotype 16 Negative Negative [facility] HPV Genotype 18 Negative Negative [facility] Comment:HPV testing performe d at [facility] (CLIA#[id number]), [address] [place] [address].Testing for HPV was performed using the [employer]system. The presence of HPV in the female [...] Provider LAB BLOOD ORDERAB LES Final Result [facility] [address] [place] [phone] * Chlamydia/N. Gonorrhoeae RNA, TMA, Urogenitial (12/29/2024 3:19 PM EDT) CT PCR NOT DETECTED Not Detect. [facility] Comment:A not detected test result [...] psychologicalconsequences. NG PCR NOT DETECTED Not Detect. [facility] Comment:A not detected test result [...] GENERAL ORDERABLES Final Result Performing Organization Address [facility] Co de Phone Number [facility] [address] [place] [phone] * Hepatitis C Antibody with Reflex to HCV, RNA, Quantitative, Real-Time PCR (07/09/2024 11:01 AM EDT) Hepatitis C Antibody Nonreactive Nonreactive [facility] Comment:Antibodies to HCV no t detected; does not exclude early acuteHCV infection. Blood Venous blood specimen / Unknown 07/09/2024 11:01 AM EDT 07/09/2024 1:12 PM EDT us Julee Dale MD LAB BLOOD ORDERABLES Final Result Performing Organization Address [facility] Co de Phone Number [facility] [address] [place] [phone] * HIV-1/2 Antigen and Antibodies, Fourth Generation, with Reflexes (07/09/2024 11:01 AM EDT) HIV AB/AG Nonreactive Nonreactive [facility] Comment:HIV-1 p24 Ag and/or HIV-1/HIV-2 Ab not detected.A test result that is nonreactive does not exclude thepossibility of exposure to or infection with HIV-1 and/orHIV-2. Nonreactive results in this assay for individualswith prior exposure to HIV-1 and/or HIV-2 may be due toantigen and antibody levels that are below the limit ofdetection of this assay.[employer] HIV Ag/Ab Combo assay result andsupplemental assay results should be interpreted inconjunction with the patient's clinical presentation,history and other laboratory results. If the results areinconsistent with clinical evidence, additional testing issuggested to confirm the result. Blood Venous blood specimen / Unknown 07/09/2024 11:01 AM EDT 07/09/2024 1:12 PM EDT us Julee Dale MD LAB BLOOD ORDERABLES Final Result Performing Organization Address [facility] Co de Phone Number [facility] [address] [place] [phone] * Hemoglobin A1c (07/09/2024 11:01 AM EDT) Hemoglobin A1c 5.9 <6.0 % [facility] Comment:Hemoglobin A1C Refer ence Range Adults: 4.8 - 6.0 % Non diabetic: < 6.0 % Goal: < 7.0 %Additional Action Suggested: > 8.0 %Note: Hemoglobin A1c results are invalid for patients with abnormal amounts of HbF. Blood transfusions may impact the HbA1c concentration in the patient sample. Estimated Average Glucose 123 mg/dL [facility] Comment:eAG = Estimated ave rage glucose which is %A1C expressed asaverage glucose, using the formula of the Y8R-XyukzxtFpaiocj Glucose study (ADAG), Diabetes Care, Vol.31,#8,Oct. 2007 Blood Venous blood specimen / Unknown 07/09/2024 11:01 AM EDT 07/09/2024 1:07 PM EDT us Julee Dale MD LAB BLOOD ORDERABLES Final Result Performing Organization Address [facility] Co de Phone Number [facility] [address] [place] [phone] * BI Mammogram Screening Tomosynthesis Bilateral (04/02/2024 2:30 PM EST) Anatomical Region Laterality Modality Breast Bilateral Mammography 04/02/2024 2:30 PM EST Narrative 04/11/2024 3:43 PM EST [address] [place] [address] Mammography Report Signed Patient: Ludmila Cooper MR#: [id number] 6 : 1975 Acct:[id number] Age/Sex: 49 / F ADM Date: 04/02/24 Loc: HO.MAMMO Attending Dr: Julee Dale MD Ordering Physician: Julee Cloud MD Results: 1Negative Date of Service: 04/02/24 Follow Up: 1 Year From Orig inal Mammogram Procedure(s): MM tomosynthesis screening BI Accession Number(s): [id number] cc: Julee Cloud MD EXAMINATION: MM SCREENING [...] 04/11/24 1540 DD/ 1430 TD/TT: 04/02/24 1445 Hearing Therapy Director: Procedure Note Donotuseinterpreter, Image - 04/11/2024 [facility] [address] [place] [address] Dr. Guzman, CARRIE [address] Mammography Report Signed Patient: Ludmila Cooper HMR#: [id number] 6 : 1975Acct:[id number] Age/Sex: 49 / FADM Date: 04/02/24 Loc: HO.MAMMO Attending Dr: Julee Dale MD Ordering Physician: Julee Cloud MDResults: 1Negative Date of Service: 04/02/24Follow Up: 1 Year From Orig inal Mammogram Procedure(s): MM tomosynthesis screening BI Accession Number(s): [id number] cc: Julee Cloud MD EXAMINATION: MM SCREENING [...] 04/11/24 1540 DD/ 1430 TD/TT: 04/02/24 1445 Hearing Therapy Director: Julee Dale MD IMG BI PROCEDURES Ankur kimberly Result - Final from Last 3 Months or Most Recently Relevant to Health Maintenance Insurance [facility] C3 HSN PARTIAL Care Teams Charge Out Clerk Relationship Specialty Start Date End Date Julee Cloud MD [address] [place] [address] PCP - General Family Medicine 11/12/17
--- OUTSIDE RECORDS SUMMARY | 2025-03-02 07:45 | XMS_ITS | Encounter Summary ---
Author Organization [email or web address] Address [address] [facility] [address] [place] [phone] Care Team Providers Care Consulting Project Director Name Role Phone Julee Cloud MD Primary Care Provide r Reason for Visit * Reason Comments Med Refill Encounter Details Date Type Department Care Team ([facility] st Contact Info) Description 04/07/2023 Refill [facility] [address] [place] [address] Julee Cloud MD [address] [place] [phone] Social History Tobacco Use Types Packs/Day Years [...] on filedocumented in this encounter Care Teams Consulting Project Director Relationship Specialty Start Date End Date Julee Cloud MD [address] [place] [address] [phone] PCP - General Family Medicine 11/12/17 documented as of this encounter
--- NOTE | 2025-03-02 07:46 | A.OFFVIS_ITS ---
Vital Signs 03/02/25 07:54 Height 4 ft 10 in Weight 119 lb BMI 24.9 BP 130/76 Intake Visit Reasons: IUD check Contribution Solicitor Required: Yes Contribution Solicitor Language: Bar [employer] Services: Contribution Solicitor Present (in person) Contribution Solicitor Name: Meg LOCO Information Interpreted: non-clinical & clinical Vacation Planner: Vacation Planner Present (Meg LOCO) Accompanied by: Self / Same As Patient Allergies No Known Allergies Allergy (Verified 03/02/25 07:55) Is last menstrual period known: No (mirena) HPI Comments Details: The patient is presenting for IUD check following IUD insertion. The patient has no complaints PFSH Medical History Pre-diabetes Asthma Surgical History No pertinent past surgical history Family History Father Diabetes Mother Dementia Social History Household Members: Spouse Household Members Other:: daughter,grandauther Housing: Apartment Alcohol intake: never Patient Tobacco Use Status: Never used Tobacco Use of substances other than those prescribed or required for medical reasons: No Current occupational status: unemployed Sexually active: Yes Sexual orientation: Straight/Heterosexual Gender identity: Female Female Reproductive History Menstrual Age of Menarche: 9 control method: progestin IUCD Total pregnancies: 3 Full term: 3 Number of Living Children: 3 Review of Systems Const All systems reviewed & are unremarkable except as noted in HPI and below Physical Exam Vital Signs: Last Vital Signs BP 130/76 03/02/25 07:54 BMI result Body Mass Index 24.9 General: Yes no CVA tenderness External Female Exam: normal external appearance and normal appearance of the urethra Speculum Exam - Vagina: normal appearance of the vagina, normal palpation, no lesions and no masses Speculum Exam - Cervix: normal appearance of the cervix, normal palpation, no lesions, no masses, nontender and Other cervical findings present (IUD string seen) Bimanual exam- vagina & uterus: normal bimanual exam, normal palpation, uterine size normal, normal palpation, uterine shape normal, No Cervical tenderness present and non-tender Bimanual Exam- Adnexa, other: normal adnexae Back/Spine/Pelvis Back: no CVA tenderness Results AMB Test Urine AMB Test Urine Negative Last Edit by Mge Boyd CMA on 08:02 Results Reviewed Results Reviewed: Laboratory Last Values Tst Clinic Negative 03/02/25 08:01 Assessment & Plan Assessment & Plan (1) IUD check up: Code(s): Z30.431 - Encounter for routine checking of intrauterine contraceptive device Category: Medical Plan: UPT done in the office was negative. Discussed with the patient the finding on physical exam, IUD string in place, the patient was reassured. Instructions given to patient to call in case of temperature above 100.4, severe cramping/pelvic pain, abnormal discharge or abnormal uterine bleeding or if she misses her menstrual cycle. Otherwise follow-up at her annual exam appointment. All questions answered, the patient verbalized understanding. Orders: Orders AMB HCG Urine Test Today Z32.02 - Encounter for test, result negative Coding Level of Care Code Est Pt Level 3 (84783) Diagnoses IUD check up Z30.431
[2025-03-02 07:54] VITALS: BP 130/76; BMI 24.9
== END 2025-03-02 08:49 | disposition home or self-care (01) ==
LOC: HO.HWS 07:42
PROVIDERS: PCP Internal Medicine; Visit Provider Obstetrics & Gynecology
DX: Z32.02 Encounter for pregnancy test, result negative (principal); Z30.431 Encounter for routine checking of intrauterine contraceptive device
CPT/HCPCS: 99213

== ENCOUNTER → 2025-03-02 07:42 | Outpatient (BNVA) | payer MEDICAID, SELFPAY | PROVIDERS: PCP Internal Medicine; Visit Provider Obstetrics & Gynecology | DX: Z30.431 Encounter for routine checking of intrauterine contraceptive device (principal); Z32.02 Encounter for pregnancy test, result negative | CPT/HCPCS: 81025; 99212 ==